=== PATIENT | male | born 1950 | race Caucasian/White ===

== ENCOUNTER 2016-10-09 06:16 | Inpatient (IN) | payer OTHER ==
--- NOTE | 2016-09-21 15:37 | GHP ---
[f rep st] HISTORY AND PHYSICAL DATE OF ADMISSION: 10/09/2016 HISTORY OF PRESENT ILLNESS: The patient is a 66-year-old male who is being referred from Dr. Scott , whom he saw earlier today, for evaluation of pancreatic cancer. The patient reports that since Rony nksgiving he has noticed a change in his bowel habits. His stools became more loose and less dark. He also noticed his urine becoming orange color. He eventually developed jaundice and underwent ERCP on 09/13/2016 in which an internal stent was placed in the common bile duct. His jaundice has since improved. CT scan around the same time frame, done at [facility], demonstrates a smal l pancreatic head mass suspicious for adenocarcinoma. Pathology was positive for adenocarcinoma. Ov er the last 6 weeks the patient has lost approximately 20 pounds, but reports that is most likely sec ondary to healthy eating and cessation of alcohol intake. Patient admits to drinking a 6-pack every night for many years. He is accompanied by his . ALLERGIES: No known drug allergies. PAST SURGICAL HISTORY: Shoulder surgery, inguinal hernia surgery. 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 He is and accompanied by his wif e today. MEDICATIONS: None. REVIEW OF SYSTEMS: He had a negative 10-point review of systems. PHYSICAL EXAM: GENERAL: The patient is a pleasant male in no apparent distress. HEAD AND NECK: Mi ld icterus, best appreciated in the sclerae. CHEST: CTA bilaterally. HEART: Regular rhythm and ra te. ABDOMEN: Very small umbilical hernia. There are no other palpable masses. ABDOMEN: Soft, non tender. EXTREMITIES: No lower extremity edema. RADIOLOGY: CT scan was reviewed. Please see HPI. PATHOLOGY: Reviewed. Please see HPI. LABORATORY: Labs from 09/17/2016 demonstrated hematocrit of 38. Elevated liver function tests inclu ding AST of 101, ALT of 241, alkaline phosphatase of 198. Elevated CA 19-9 of 376. Normal coagulati on studies. Elevated bilirubin, 3.3 total bilirubin. IMPRESSION: 66-year-old male with adenocarcinoma of the pancreas. RECOMMENDATION: Pancreaticoduodenectomy (Whipple procedure) with umbilical hernia repair was discuss ed with the patient in detail. Dr. Guardado spent greater than 30 minutes with the patient and his , going over the risks of the procedure including bowel injury requiring further surgery, infection r equiring surgery, bleeding, recurrence, the chance of recurrent pancreatic cancer in the future. The patient elects to proceed with scheduling surgery. He will be in the hospital anywhere from 5 to 15 days. /[id number]/MODL
[~2016-10-09 06:16] MED LIST: cefOXitin SODIUM 2 GM in D5W 100 ML IV ONE
[2016-10-09] MEDS ORDERED: LR 1,000 ML IV ONE (06:44)
[2016-10-09] MEDS ORDERED: LIDOCAINE 1% 5 ML SDV ID PRN (06:44)
[2016-10-09] MEDS ORDERED: LIDOCAINE 1% 5 ML SDV ONE (06:47)
[2016-10-09] MEDS ORDERED: MINERAL OIL 10 ML VIAL TP ONE (06:57)
[2016-10-09] MEDS ORDERED: METHYLENE BLUE 1% 10 MG/ML VIAL ONE (06:58)
[2016-10-09 07:12] LABS: INR 1.12 (0.83-1.16); PROTIME(PATIENT) 14.3 SEC (12.0-15.0)
[2016-10-09] MEDS ORDERED: MIDAZOLAM 2 MG/2 ML VIAL ONE (07:59)
[2016-10-09] MEDS ORDERED: fentaNYL 250 MCG/5 ML INJ ONE (08:14)
[2016-10-09] MEDS ORDERED: PROPOFOL 200 MG/20 ML VIAL ONE (08:14)
[2016-10-09] MEDS ORDERED: SKIN ADHESIVE (DERMABOND) 1 EACH TP ONE (08:20)
[2016-10-09] MEDS ORDERED: BUPIVACAINE/EPI 0.25% 30 ML SDV ONE (08:47)
[2016-10-09] MEDS ORDERED: diphenhydrAMINE 25 MG CAP PO PRN (09:28)
[2016-10-09] MEDS ORDERED: NARCOTIC DRIP BAG-TOTAL ALL TYPES EP PRN (09:28)
[2016-10-09] MEDS ORDERED: ONDANSETRON 4 MG/2 ML VIAL IVP PRN ×2 (09:28→14:34)
[2016-10-09] MEDS ORDERED: NALOXONE HCL 0.4 MG/ML INJ IVP PRN (09:28)
[2016-10-09] MEDS ORDERED: ROCURONIUM 100 MG/10 ML VIAL ONE ×2 (10:09→10:13)
[2016-10-09] MEDS ORDERED: LIDOCAINE 2% 5 ML SDV ONE (10:09)
[2016-10-09] MEDS ORDERED: ALBUMIN 5% 250 ML BOTTLE IV ONE (11:04)
[2016-10-09 13:13] LABS: % IMMATURE GRANULYOCYTES 0.3 % (0.0-1.1); ABSOLUTE IMMATURE GRANULOCYTES 0.04 10^3/uL (0.00-0.10); ADD DIFF? NO; ADD MORPH? NO; ADD SCAN? NO; ATYPICAL LYMPHOCYTE FLAG 0 (0-99); FRAGMENT RBC FLAG 0 (0-99); HEMATOCRIT 34.3 % (40.0-51.0); HEMOGLOBIN 11.6 g/dL (13.7-17.5); LEFT SHIFT FLG 20 (0-99); LIPEMIA HEMOLYSIS FLAG 90 (0-99); MEAN CELL HEMOGLOBIN 30.7 pg (27.9-34.1); MEAN CELL HEMOGLOBIN CONCENTR. 33.8 g/dL (32.4-36.7); MEAN CELL VOLUME 90.7 fL (81.5-99.8); MEAN PLATELET VOLUME 8.8 fL (8.7-11.7); PLATELET CLUMPS FLAG 0 (0-99); PLATELET COUNT 171 10^3/uL (150-400); RED BLOOD CELL COUNT 3.78 10^6/uL (4.40-6.38); RED CELL DISTRIBUTION WIDTH 14.1 % (11.5-15.2)
[2016-10-09 13:18] LABS: INR 1.45 (0.83-1.16); PROTIME(PATIENT) 17.6 SEC (12.0-15.0)
[2016-10-09] MEDS ORDERED: FUROSEMIDE 20 MG/2 ML VIAL ONE (14:10)
[2016-10-09] MEDS ORDERED: DEXAMETHASONE 4 MG/ML VIAL ONE (14:27)
[2016-10-09] MEDS ORDERED: SUGAMMADEX SODIUM 200 MG/2 ML VIAL IVP ONE (14:27)
--- NOTE | 2016-10-09 14:32 | POSTOPPROG ---
Post Op Note Date of Operation: 10/09/16 Surgeon: Dave Guardado Folding Machine Operator: 1. Alejandro Robles MD; 2. Nhi Nagel PA-C Anesthesia: GET(General Endotracheal) Procedure: pylorussparingpancreaticoduodenectomy,cholecystectomy,portal v.venorrhaphy Findings: hard tumor, dilated pancreatic duct, adherence to portal v., no distal mets Inf/Abcess present in the surg proc area at time of surgery?: No EBL: 2300cc Complications: none Drains: Adriel Larkin Specimen(s): 1. gallbladder 2. pancreatic and common bile duct margins, negative for malignancy on frozen section 3. Whipple products--pancreas, duodenum, bile duct
[2016-10-09] MEDS ORDERED: fentaNYL 100 MCG/2 ML INJ ONE (15:46)
[2016-10-10] MEDS: D5W 1/2 NS W/ 20 KCl/L 1,000 ML IV SCH ×2 (00:27→07:33)
[2016-10-10] MEDS: HYDROmorph 10MCG/ML&BUP 0.0625% in 100ML NS EP SCH ×4 (01:49→23:20)
[2016-10-10 04:29] LABS: HEMATOCRIT 34.7 % (40.0-51.0)
[2016-10-10 04:36] LABS: ANION GAP 8 mEq/L (8-16); CALCIUM 7.8 mg/dL (8.5-10.4); CARBON DIOXIDE 25 mEq/l (22-31); CHLORIDE 106 mEq/L (97-110); CREATININE 0.8 mg/dL (0.7-1.3); GLOMERULAR FILTRATION RATE > 60; GLUCOSE 278 mg/dL (70-100); POTASSIUM 5.2 mEq/L (3.5-5.2); SODIUM 139 mEq/L (134-144)
[2016-10-10] MEDS: REGARDING ANTICOAG MISC SCH (09:57)
[2016-10-10] MEDS: DC NARCS MISC SCH (09:57)
[2016-10-10] MEDS ORDERED: D50W 25 GM/50 ML SYR IVP PRN (10:46)
--- NOTE | 2016-10-10 12:20 | SOAPPROG ---
SOAP Progress Note Assessment/Plan: Assessment: Pt experiencing some pain but well controlled with PCEA demand boluses. Pt having some orthostatic hypotension when standing , resolved with walking. Plan: Continue thorasic epidural at present settings. 10/10/16 12:20 Subjective: Pt reports good pain control with demand boluses. No nausea. No LOZOYA Objective: Vital Signs Temp Pulse Resp BP Pulse Ox 36.7 C 90 16 137/81 H 95 10/10/16 07:52 10/10/16 10:00 10/10/16 10:00 10/10/16 10:00 10/10/16 10:00 Laboratory Results 10/10/16 04:10 10/10/16 04:10 10/09/16 10/10/16 10/11/16 05:59 05:59 05:59 Intake Total 8650 Output Total 6010 95 Balance 2640 -95 PT 17.6 SEC (12.0-15.0) H 10/09/16 12:45 INR 1.45 (0.83-1.16) H 10/09/16 12:45 Pt is in good spirts, alert and oriented. Epidural site clean, dressing intact. ICD10 Worksheet Patient Problems: Problems Problem Status Diagnosed Biliary obstruction due to cancer Acute bi Acute
--- NOTE | 2016-10-10 12:20 | SOAPPROG ---
SOAP Progress Note Assessment/Plan: Assessment/Plan: 66 Y M s/p pylorus sparing pancreaticoduodenectomy c cholecystectomy and portal V. venorrhaphy, POD#1. Doing well. AFVSS. BRAULIO output serosanguinous. Good UOP. Hct ok. Pain controlled c epidural. Continue betts catheter. Continue BRAULIO drains. Continue NGT until better bowel function. Ppx lovenox to start tomorrow--anesthesiology aware. Continue ICU care. 10/10/16 12:16 Subjective: No pain. Slept fine. No N/V. No flatus. Sat in chair early this am. Feels like he might have the beginning of stomach rumbling. Objective: Vital Signs Temp Pulse Resp BP Pulse Ox 36.7 C 90 16 137/81 H 95 10/10/16 07:52 10/10/16 10:00 10/10/16 10:00 10/10/16 10:00 10/10/16 10:00 Laboratory Results 10/10/16 04:10 10/10/16 04:10 10/09/16 10/10/16 10/11/16 05:59 05:59 05:59 Intake Total 8650 Output Total 6010 95 Balance 2640 -95 PT 17.6 SEC (12.0-15.0) H 10/09/16 12:45 INR 1.45 (0.83-1.16) H 10/09/16 12:45 alert, nad no jaundice mmm ng in place ctab anteriorly rrr abd soft, single bowel sound over ~minute drains serosanguinous urine clear, yellow ICD10 Worksheet Patient Problems: Problems Problem Status Diagnosed Biliary obstruction due to cancer Acute bi Acute
[2016-10-10] MEDS ORDERED: PHYTONADIONE 10 MG in NS 50 ML IV ONE (12:32)
[2016-10-10] MEDS: INSULIN REGULAR HUMAN 100 UNIT/ML SC SCH ×2 (12:54→18:25)
[2016-10-10 12:57] LABS: ALBUMIN 2.7 g/dL (3.5-5.0); BILIRUBIN,TOTAL 1.4 mg/dL (0.1-1.4); BILIRUBIN-CONJUGATED 0.8 mg/dL (0.0-0.5); BILIRUBIN-UNCONJUGATED 0.6 mg/dL (0.0-1.1); TOTAL PROTEIN 4.9 g/dL (6.3-8.2)
--- NOTE | 2016-10-10 15:25 | DX ---
Portable chest x-ray 1308 hours. History: Pancreatic cancer. Findings: Comparison to July 17, 2007 exam. There is band of subsegmental atelectasis right infrahilar region as well as at the left base. There is no consolidation, effusion, or pneumothorax. There is poor inspiration. Heart size and pulmonary v asculature are normal. Osseous structures appear to be unchanged. NG tube is present with tip in the stomach. Impression: 1. Poor inspiration with subsegmental atelectasis left base and right infrahilar region.
[2016-10-10] MEDS ORDERED: METOCLOPRAMIDE 10 MG/2 ML VIAL ONE (21:46)
[2016-10-10] MEDS: FAMOTIDINE 20 MG/NACL 50 ML IV SCH (21:49)
[2016-10-10] MEDS: METOCLOPRAMIDE 10 MG/2 ML VIAL IVP SCH (21:49)
[2016-10-11] MEDS: INSULIN REGULAR HUMAN 100 UNIT/ML SC SCH ×3 (00:33→14:13)
[2016-10-11] MEDS: METOCLOPRAMIDE 10 MG/2 ML VIAL IVP SCH ×4 (05:03→21:47)
--- NOTE | 2016-10-11 05:09 | GCON ---
[f rep st] CONSULTATION CRITICAL CARE CONSULTATION. DATE OF CONSULTATION: 10/10/2016 REASON FOR CONSULTATION: Intensive care unit evaluation and medical management following a Whipple p rocedure. HISTORY: The patient is a very pleasant 66-year-old gentleman, who presented with jaundice to his [facility]sicians in August. He was evaluated and found to have possible pancreatic cancer. Common bile du ct stenting was done. Pathology was positive for adenocarcinoma. He was thus admitted and underwent a Whipple procedure yesterday. Complete details can be found in the operative notes. He was returned to the intensive care unit post procedure, doing well. He has had no particular prob lems. He complains of some shortness of breath and expected abdominal pain, which is well controlled . PAST MEDICAL HISTORY: Unremarkable for known drug allergies. He has no significant medical problems and was on no medications at the time of admission. He is status post some orthopedic procedures in the past and a herniorrhaphy. SOCIAL HISTORY: The patient is . He drank a 6 pack of beer previously but stopped a month or so ago. Occasionally uses marijuana. Tobacco is negative. FAMILY HISTORY: Negative/noncontributory. REVIEW OF SYSTEMS: Negative except as mentioned above. There is no history of heart or lung disease , thromboembolic disease, or other significant problems. PHYSICAL EXAMINATION: GENERAL: Reveals pleasant gentleman, who is sitting up in a chair. He appears comfortable. VITAL SIGNS: Blood pressure is 130/80, heart rate 90 with sinus rhythm on the monitor. Respiratory rate is 16. On 2 L of oxygen saturations are 95.%. HEENT/NECK: Unremarkable for lymp hadenopathy or thyromegaly. There is no jugular venous distention. CHEST: Reveals decreased breath sounds and excursion secondary to his abdominal surgery. There are no rales or rhonchi. HEART: Reg ular in rate and rhythm. There are no significant murmurs, no gallops. ABDOMEN: Dressed postoperat ively and was not examined. Drains are in place on the left and right sides. EXTREMITIES: Unremark able for edema, cords, or tenderness. SCDs are in place. DATABASE: Laboratories show a white blood cell count 12,000, hematocrit of 34.7. Platelets are norm al. PT and INR on admission were normal. Sodium is 139, potassium 5.2, chloride 106, CO2 25, BUN 16 , with a creatinine of 0.8. Glucoses are in the 270 range. Bilirubin is 1.4, AST 6124 with an ALT o f 6304. Albumin is 2.7. Calcium 7.8. ASSESSMENT: 1. Status post Whipple procedure for pancreatic cancer. He is doing well postoperatively. 2. Hyperglycemia. Insulin by sliding scale will be ordered. 3. Elevated transaminases. These were mildly elevated preoperatively. These elevated values likely represent surgical perturbation. 4. DVT prophylaxis, on enoxaparin. 5. GI prophylaxis, famotidine will be added to his regimen. PLAN AND RECOMMENDATIONS: The patient will be kept in the intensive care unit. Appropriate pain con trol will be maintained. Insulin will be added for glucose coverage on a sliding scale basis. Pepci d will be started. Current medications will be continued. CBC, hematocrit, laboratory will be follo wed. Further plans and recommendations will be made based on his progress over the next 12-24 hours. /[id number]/MODL
[2016-10-11 05:19] LABS: ABSOLUTE NRBC COUNT 0.04 10^3/uL (0-0.01); ADD MORPH? NO; ADD SCAN? YES; ATYPICAL LYMPHOCYTE FLAG 0 (0-99); FRAGMENT RBC FLAG 0 (0-99); HEMATOCRIT 33.9 % (40.0-51.0); HEMOGLOBIN 11.8 g/dL (13.7-17.5); LIPEMIA HEMOLYSIS FLAG 90 (0-99); MEAN CELL HEMOGLOBIN 30.7 pg (27.9-34.1); MEAN CELL HEMOGLOBIN CONCENTR. 34.8 g/dL (32.4-36.7); MEAN CELL VOLUME 88.3 fL (81.5-99.8); MEAN PLATELET VOLUME 9.4 fL (8.7-11.7); NRBC-AUTO% 0.3 % (0.0-0.2); PLATELET CLUMPS FLAG 0 (0-99); PLATELET COUNT 180 10^3/uL (150-400); RED BLOOD CELL COUNT 3.84 10^6/uL (4.40-6.38); RED CELL DISTRIBUTION WIDTH 14.5 % (11.5-15.2)
[2016-10-11 05:22] LABS: LEFT SHIFT FLG 110 (0-99)
[2016-10-11 05:24] LABS: INR 1.73 (0.83-1.16); PROTIME(PATIENT) 20.3 SEC (12.0-15.0)
[2016-10-11 05:34] LABS: ALBUMIN 2.6 g/dL (3.5-5.0); ALKALINE PHOSPHATASE 272 IU/L (38-126); ANION GAP 6 mEq/L (8-16); BILIRUBIN,TOTAL 1.5 mg/dL (0.1-1.4); BILIRUBIN-CONJUGATED 0.6 mg/dL (0.0-0.5); BILIRUBIN-UNCONJUGATED 0.9 mg/dL (0.0-1.1); CALCIUM 8.3 mg/dL (8.5-10.4); CARBON DIOXIDE 26 mEq/l (22-31); CHLORIDE 107 mEq/L (97-110); CREATININE 1.1 mg/dL (0.7-1.3); GLOMERULAR FILTRATION RATE > 60; GLUCOSE 216 mg/dL (70-100); POTASSIUM 5.3 mEq/L (3.5-5.2); SODIUM 139 mEq/L (134-144); TOTAL PROTEIN 4.7 g/dL (6.3-8.2)
[2016-10-11 05:48] LABS: ADD DIFF? YES; SCAN POSITIVE
[2016-10-11 05:52] LABS: TOXIC VACUOLIZATION PRESENT
[2016-10-11 05:56] LABS: PLATELET ESTIMATE ADEQUATE (ADEQ)
[2016-10-11 06:11] LABS: ASPARTATE AMINOTRANSFERASE 3244 IU/L (17-59)
[2016-10-11 06:18] LABS: ALANINE AMINOTRANSFERASE 5706 IU/L (21-72)
[2016-10-11] MEDS: HYDROmorph 10MCG/ML&BUP 0.0625% in 100ML NS EP SCH ×3 (06:37→19:41)
[2016-10-11] MEDS: FAMOTIDINE 20 MG/NACL 50 ML IV SCH (08:16)
[2016-10-11] MEDS: REGARDING ANTICOAG MISC SCH (08:16)
[2016-10-11] MEDS: DC NARCS MISC SCH (08:16)
[2016-10-11] MEDS: ENOXAPARIN 40 MG/0.4 ML SYR SC SCH (10:05)
[2016-10-11] MEDS ORDERED: NS 500 ML IV ONE ×2 (10:34→16:00)
[2016-10-11] MEDS ORDERED: D10W 1,000 ML IV PRN (12:41)
--- NOTE | 2016-10-11 12:52 | SOAPPROG ---
SOAP Progress Note Assessment/Plan: Assessment: 66yo male s/p whipple for pancreatic cancer POD 2. Pain spiked last night -- epidural became unhooked for 2-3 hours, improving now. Reportedly "Frumpy" earlier today but now in pleasant mood, likely was related to pain control which has improved. PE NG tube in place, awake, alert in chair Abdomen transverse incision bandage dry, B/L BRAULIO drains in place with bilious drainage, soft abdomen to palpation LE no lower ext edema Labs reviewed. Plan: TPN encouraged deep breathing exercises await bowel function which could take many days 10/11/16 12:48 Objective: Vital Signs Temp Pulse Resp BP Pulse Ox 36.8 C 112 H 19 116/72 96 10/11/16 11:27 10/11/16 12:00 10/11/16 12:00 10/11/16 12:00 10/11/16 12:00 Laboratory Results 10/11/16 04:45 10/11/16 04:45 10/10/16 10/11/16 10/12/16 05:59 05:59 05:59 Intake Total 8650 1952 Output Total 6010 1710 Balance 2640 242 PT 20.3 SEC (12.0-15.0) H 10/11/16 04:45 INR 1.73 (0.83-1.16) H 10/11/16 04:45 ICD10 Worksheet Patient Problems: Problems Problem Status Diagnosed Biliary obstruction due to cancer Acute bi Acute
--- NOTE | 2016-10-11 13:58 | PDINTPN ---
Computer Systems Design Analyst Progress Note Assessment/Plan: Assessment: Pancreatic cancer, status post Whipple Hyperglycemia: Insulin started yesterday, glucose is still high By basilar atelectasis, secondary to 1., as expected Decreased urine output: Probably related to volume Nutrition: To start TPN. PICC line to be placed. DVT prophylaxis: On enoxaparin GI prophylaxis: On famotidine Plan: continue care in the intensive care unit. Increased IV fluids, with fluid bolus this morning. Continue pain management. Discuss TRAINING INSTRUCTOR with anesthesia. For PICC line, TPN. Continue insulin, may need to increase or add to TPN. All the above was discussed with the patient's , nursing, and the ICU multi disciplinary team. Subjective: Doing okay. Slept poorly last night. Some increase in pain today. Objective: Vital Signs Temp Pulse Resp BP Pulse Ox 36.8 C 112 H 19 116/72 96 10/11/16 11:27 10/11/16 12:00 10/11/16 12:00 10/11/16 12:00 10/11/16 12:00 Laboratory Results 10/11/16 04:45 10/11/16 04:45 10/10/16 10/11/16 10/12/16 05:59 05:59 05:59 Intake Total 8650 1952 Output Total 6010 1710 Balance 2640 242 PT 20.3 SEC (12.0-15.0) H 10/11/16 04:45 INR 1.73 (0.83-1.16) H 10/11/16 04:45 Laboratory Tests 10/11/16 04:45 PT 20.3 H INR 1.73 H Calcium 8.3 L Total Bilirubin 1.5 H AST 3244 H ALT 5706 H Albumin 2.6 L Physical Exam - Physical Exam General Appearance: alert, no apparent distress, other ( Up in chair) EENT: other ( nasal cannula 2 L) Neck: normal inspection Respiratory: lungs clear ( anteriorly), decreased breath sounds ( at bases) Cardiac/Chest: tachycardia ( sinus on monitor) Abdomen: No normal bowel sounds ( quiet), No non-tender (ve changes) Male Genitalia: other (ine output this morning) Skin: normal color, warm/dry Extremities: No pedal edema Neuro/Psych: no motor/sensory deficits, No cognition abnormalities ICD10 Worksheet Patient Problems: Problems Problem Status Diagnosed Biliary obstruction due to cancer Acute bi Acute
[2016-10-11] MEDS ORDERED: HYDROmorphONE/DILAUDID 1 MG/ML SYR ONE (14:05)
[2016-10-11] MEDS: HYDROmorphONE/DILAUDID 1 MG/ML SYR IVP PRN ×2 (14:14→20:32)
[2016-10-11 14:19] LABS: MAGNESIUM 1.9 mg/dL (1.6-2.3)
--- NOTE | 2016-10-11 16:03 | IR ---
Imaging-Guided Peripherally Inserted Central Catheter History: Malnutrition.. Prophylactic Antibiotic: Cefazolin was not ordered and administered for antimicrobial prophylaxis be cause it was not medically necessary for this procedure. VTE Prophylaxis: There is not an order for VTE prophylaxis to be given within 24 hours after procedu re end time because it was not medically necessary for this procedure. Crosscutting Measure: Patient's current list of medications including all known prescriptions, over- the-counters, herbals, and vitamin/mineral/dietary supplements are reviewed. Medications' name, dosa ge, frequency, and route of administration are confirmed. Technique: Following informed consent, the right arm was prepped and draped in sterile fashion. 1% Xy locaine was used for local anesthetic. All elements of maximal sterile barrier technique including cap, mask, sterile gown, sterile gloves, large sterile sheet, hand hygiene, and 2% chlorhexidine for cutaneous antisepsis, followed. Ultrasound evaluation of potential access site was performed. After successfully identifying a patent vessel, ultrasound guidance was used to puncture the vein. A permanent recording was created for the patient's record. Ultrasound transducer was placed in sterile sleeve and used for real-time imaging guidance over steri le gel to enter the basilic vein. 0.018 measuring wire was passed centrally under fluoroscopic contro l. A skin josephine with scalpel blade was followed by removing the access needle. A 5 Sammarinese peel-away sh eath was followed by a 5 Sammarinese double-lumen central catheter, trimmed to 40 cm length. The tip of t he catheter was positioned centrally and the guidewire removed. A single fluoroscopic spot image was obtained in inspiration. The hub of the catheter was fixed to the skin using a sterile StatLock adhes diamond device, and a sterile dressing was applied. The catheter was irrigated. Findings: The tip of the central catheter terminates at the junction of the superior vena cava and th e right atrium. Fluoroscopy: 0.6 minutes, 2 images Impression: 5 Sammarinese double lumen peripherally inserted central catheter is ready to use.
--- NOTE | 2016-10-11 17:06 | SOAPPROG ---
SOAP Progress Note Assessment/Plan: Assessment: Pt experiencing some pain but well controlled with PCEA demand boluses. Pt having some orthostatic hypotension when standing , resolved with walking. Plan: Continue thorasic epidural at present settings. 10/10/16 12:20 10/11/16 17:02 Pt with increased pain last pm and this am after catheter disconnect. Infusion increased to 9 ml/hr, and dilaudid 0.2 mg iv q 30 min ordered prn. Pt received one dose of dilaudid and is now with good pain control. Will continue with present epidural settings. Subjective: Pt with increaed pain last pm and this am after catheter disconnect. Pt currently reports good pain control. Objective: Vital Signs Temp Pulse Resp BP Pulse Ox 36.8 C 97 16 134/68 H 94 10/11/16 11:27 10/11/16 15:31 10/11/16 14:00 10/11/16 14:00 10/11/16 14:00 Laboratory Results 10/11/16 04:45 10/11/16 04:45 10/10/16 10/11/16 10/12/16 05:59 05:59 05:59 Intake Total 8650 1952 Output Total 6010 1710 205 Balance 2640 242 -205 PT 20.3 SEC (12.0-15.0) H 10/11/16 04:45 INR 1.73 (0.83-1.16) H 10/11/16 04:45 Pt oriented, and in good spirits. Epidural site clean and dressing intact. ICD10 Worksheet Patient Problems: Problems Problem Status Diagnosed Biliary obstruction due to cancer Acute bi Acute
[2016-10-11] MEDS: INSULIN REGULAR, HUMAN 100 UNIT/1 ML VIAL HIGH SC SCH (19:02)
[2016-10-11] MEDS: TPN W/ FAMOTIDINE 1 EA BAG IV SCH (21:47)
[2016-10-12] MEDS: INSULIN REGULAR, HUMAN 100 UNIT/1 ML VIAL HIGH SC SCH ×6 (01:10→21:59)
[2016-10-12] MEDS: HYDROmorphONE/DILAUDID 1 MG/ML SYR IVP PRN (01:11)
[2016-10-12] MEDS: HYDROmorph 10MCG/ML&BUP 0.0625% in 100ML NS EP SCH (03:45)
[2016-10-12] MEDS: METOCLOPRAMIDE 10 MG/2 ML VIAL IVP SCH ×4 (05:17→21:50)
[2016-10-12 05:54] LABS: ABSOLUTE NRBC COUNT 0.14 10^3/uL (0-0.01); ADD MORPH? YES; ADD SCAN? YES; ATYPICAL LYMPHOCYTE FLAG 0 (0-99); FRAGMENT RBC FLAG 0 (0-99); HEMATOCRIT 31.7 % (40.0-51.0); HEMOGLOBIN 10.7 g/dL (13.7-17.5); LIPEMIA HEMOLYSIS FLAG 90 (0-99); MEAN CELL HEMOGLOBIN 30.7 pg (27.9-34.1); MEAN CELL HEMOGLOBIN CONCENTR. 33.8 g/dL (32.4-36.7); MEAN CELL VOLUME 90.8 fL (81.5-99.8); MEAN PLATELET VOLUME 9.2 fL (8.7-11.7); PLATELET CLUMPS FLAG 0 (0-99); PLATELET COUNT 141 10^3/uL (150-400); RED BLOOD CELL COUNT 3.49 10^6/uL (4.40-6.38); RED CELL DISTRIBUTION WIDTH 14.6 % (11.5-15.2)
[2016-10-12 06:05] LABS: APTT 28.5 SEC (23.0-38.0); INR 1.53 (0.83-1.16); PROTIME(PATIENT) 18.4 SEC (12.0-15.0)
[2016-10-12 06:09] LABS: LEFT SHIFT FLG 260 (0-99); NRBC-AUTO% 2.1 % (0.0-0.2)
[2016-10-12 06:13] LABS: ALBUMIN 1.9 g/dL (3.5-5.0); ALKALINE PHOSPHATASE 208 IU/L (38-126); ANION GAP 4 mEq/L (8-16); BILIRUBIN-CONJUGATED 0.4 mg/dL (0.0-0.5); BILIRUBIN-UNCONJUGATED 0.6 mg/dL (0.0-1.1); CARBON DIOXIDE 28 mEq/l (22-31); CHLORIDE 113 mEq/L (97-110); CREATININE 0.9 mg/dL (0.7-1.3); GLOMERULAR FILTRATION RATE > 60; GLUCOSE 198 mg/dL (70-100); MAGNESIUM 2.3 mg/dL (1.6-2.3); POTASSIUM 4.6 mEq/L (3.5-5.2); SODIUM 145 mEq/L (134-144)
[2016-10-12 06:43] LABS: ALANINE AMINOTRANSFERASE 3392 IU/L (21-72); ASPARTATE AMINOTRANSFERASE 1231 IU/L (17-59)
[2016-10-12 07:09] LABS: ADD DIFF? YES
[2016-10-12 07:10] LABS: PLATELET ESTIMATE ADEQUATE (ADEQ); SCAN POSITIVE
[2016-10-12 07:23] LABS: POLYCHROMASIA 1+
[2016-10-12] MEDS ORDERED: K PHOS 10 MMOL in D5W 250 ML IV ONE (08:30)
[2016-10-12] MEDS: DC NARCS MISC SCH (08:32)
[2016-10-12] MEDS: REGARDING ANTICOAG MISC SCH (08:32)
[2016-10-12] MEDS: ENOXAPARIN 40 MG/0.4 ML SYR SC SCH ×3 (08:53→10:42)
--- NOTE | 2016-10-12 09:55 | POSTANESTH ---
Post Anesthetic Evaluation Cardiovascular Status: Normal, Stable Respiratory Status: Normal, Stable Level of Consciousness/Mental Status: Can Participate in Eval, Alert and Oriented Pain Control: Adequate, Prn Tx Ordered Nausea/Vomiting Control: Adequate, Prn Tx Ordered Complications Possibly Related to Anesthesia: None Noted Notes: Pt seen for epidural f/u. Back site is c/d/i, no erythema/edema/exudate. Pt reports pain is 3/10 at rest with spikes to 6-7/10 with activity, coughing, etc. Patient's stated goal is <6/10. Physical exam shows a narrow band at approximately T-9, covers the incision. He has no demand boluses over the last 8 hours, states he was afraid to push the button because it might beep and the battery . Provided reassurance and education, encouraged to use the PCEA demand feature prior to activity and as needed. Recommend to increase the bupi from 0.0625% to 0.1%. Please hold Lovenox for 12 hours prior to planned epidural discharge. Ambulate with assistance as able. Thank you for this interesting consult please don't hesitate to call with questions or concerns.
[2016-10-12] MEDS: HYDROmorph 10MCG/ML&BUP 0.1% in 100ML NS EP SCH ×2 (11:41→18:24)
--- NOTE | 2016-10-12 17:19 | PDINTPN ---
Demonstrator Knitting Progress Note Assessment/Plan: Assessment: Pancreatic cancer, status post Whipple Hyperglycemia: On insulin by sliding scale and in TPN By basilar atelectasis, secondary to #1, as expected Decreased urine output: Probably related to volume, somewhat better Nutrition: On TPN. DVT prophylaxis: On enoxaparin GI prophylaxis: On famotidine Anemia: Hematocrit 31, stable. Without evidence of ongoing bleeding. Follow. Plan: Continue care in the intensive care unit. Can change to a step-down unit status, continue IV fluids. Continue pain management, TPN. Continue insulin, increase coverage to Q 4 hours, add more insulin to TPN. All the above was discussed with the patient's , nursing, pharmacy, and the ICU multi disciplinary team. Subjective: Doing well. Had a better night last night. Pain under acceptable control. Objective: Vital Signs Temp Pulse Resp BP Pulse Ox 36.9 C 94 17 134/58 H 95 10/11/16 20:00 10/12/16 16:02 10/12/16 16:02 10/12/16 16:02 10/12/16 16:02 Laboratory Results 10/12/16 05:40 10/12/16 05:40 10/11/16 10/12/16 10/13/16 05:59 05:59 05:59 Intake Total 1952 3976 Output Total 1710 1865 970 Balance 242 2111 -970 PT 18.4 SEC (12.0-15.0) H 10/12/16 05:40 INR 1.53 (0.83-1.16) H 10/12/16 05:40 Physical Exam - Physical Exam General Appearance: alert, no apparent distress EENT: PERRL/EOMI, other (Nasal cannula at 2 L) Neck: normal inspection Respiratory: lungs clear (Anteriorly), decreased breath sounds (At bases), rales (Few rales at base), No rhonchi Cardiac/Chest: regular rate, rhythm Abdomen: No normal bowel sounds (Quiet, maybe an occasional few bowel sounds), No non-tender, No soft Male Genitalia: other Skin: normal color, warm/dry Extremities: No pedal edema (Trace) Neuro/Psych: no motor/sensory deficits, No cognition abnormalities ICD10 Worksheet Patient Problems: Problems Problem Status Diagnosed Biliary obstruction due to cancer Acute bi Acute
[2016-10-12] MEDS: NS 1,000 ML IV SCH (17:31)
[2016-10-12] MEDS: TPN W/ FAMOTIDINE 1 EA BAG IV SCH (21:47)
[2016-10-13] MEDS: HYDROmorph 10MCG/ML&BUP 0.1% in 100ML NS EP SCH ×3 (01:45→16:15)
[2016-10-13] MEDS: INSULIN REGULAR, HUMAN 100 UNIT/1 ML VIAL HIGH SC SCH ×6 (02:10→22:00)
[2016-10-13 04:52] LABS: ABSOLUTE NRBC COUNT 0.14 10^3/uL (0-0.01); ADD MORPH? YES; ADD SCAN? YES; ATYPICAL LYMPHOCYTE FLAG 0 (0-99); FRAGMENT RBC FLAG 0 (0-99); HEMATOCRIT 31.2 % (40.0-51.0); HEMOGLOBIN 10.5 g/dL (13.7-17.5); LIPEMIA HEMOLYSIS FLAG 80 (0-99); MEAN CELL HEMOGLOBIN 31.1 pg (27.9-34.1); MEAN CELL HEMOGLOBIN CONCENTR. 33.7 g/dL (32.4-36.7); MEAN CELL VOLUME 92.3 fL (81.5-99.8); MEAN PLATELET VOLUME 9.4 fL (8.7-11.7); PLATELET CLUMPS FLAG 0 (0-99); PLATELET COUNT 117 10^3/uL (150-400); RED BLOOD CELL COUNT 3.38 10^6/uL (4.40-6.38); RED CELL DISTRIBUTION WIDTH 14.8 % (11.5-15.2)
[2016-10-13 04:57] LABS: INR 1.39 (0.83-1.16)
[2016-10-13 04:58] LABS: APTT 26.3 SEC (23.0-38.0)
[2016-10-13 05:01] LABS: LEFT SHIFT FLG 130 (0-99)
[2016-10-13 05:06] LABS: ALBUMIN 1.8 g/dL (3.5-5.0); ALKALINE PHOSPHATASE 164 IU/L (38-126); ANION GAP 2 mEq/L (8-16); ASPARTATE AMINOTRANSFERASE 632 IU/L (17-59); BILIRUBIN,TOTAL 0.9 mg/dL (0.1-1.4); CALCIUM 7.9 mg/dL (8.5-10.4); CARBON DIOXIDE 29 mEq/l (22-31); CHLORIDE 114 mEq/L (97-110); CREATININE 0.9 mg/dL (0.7-1.3); GLOMERULAR FILTRATION RATE > 60; GLUCOSE 246 mg/dL (70-100); MAGNESIUM 2.2 mg/dL (1.6-2.3); POTASSIUM 4.7 mEq/L (3.5-5.2); SODIUM 145 mEq/L (134-144); TOTAL PROTEIN 3.7 g/dL (6.3-8.2)
[2016-10-13 05:22] LABS: ADD DIFF? YES; SCAN POSITIVE
[2016-10-13 05:27] LABS: MACROCYTES 1+; PLATELET ESTIMATE DECREASED (ADEQ); POLYCHROMASIA 1+
[2016-10-13 05:28] LABS: ALANINE AMINOTRANSFERASE 2195 IU/L (21-72)
[2016-10-13] MEDS: METOCLOPRAMIDE 10 MG/2 ML VIAL IVP SCH ×4 (05:41→22:27)
--- NOTE | 2016-10-13 09:25 | SOAPPROG ---
SOAP Progress Note Assessment/Plan: Assessment:Cath day 4 - good pain control, catheter site intact without induration or edema Plan:continue current infusion regimen 10/13/16 09:23 10/13/16 09:25 Subjective: good pain control Objective: Vital Signs Temp Pulse Resp BP Pulse Ox 36.7 C 102 H 15 96/52 L 92 10/13/16 08:00 10/13/16 08:00 10/13/16 08:00 10/13/16 08:00 10/13/16 08:00 Laboratory Results 10/13/16 04:40 10/13/16 04:40 10/12/16 10/13/16 10/14/16 05:59 05:59 05:59 Intake Total 3976 2591 Output Total 1865 2440 Balance 2111 151 PT 17.0 SEC (12.0-15.0) H 10/13/16 04:40 INR 1.39 (0.83-1.16) H 10/13/16 04:40 - Time Spent With Patient Time Spent With Patient: 10 minutes - Pending Discharge Pending Discharge Within 24 Hours: No Pending Discharge Within 48 Hours: No ICD10 Worksheet Patient Problems: Problems Problem Status Diagnosed Biliary obstruction due to cancer Acute bi Acute
[2016-10-13] MEDS: DC NARCS MISC SCH (09:43)
[2016-10-13] MEDS: REGARDING ANTICOAG MISC SCH (09:43)
[2016-10-13] MEDS: ENOXAPARIN 40 MG/0.4 ML SYR SC SCH (09:43)
--- NOTE | 2016-10-13 11:21 | SOAPPROG ---
SOAP Progress Note Assessment/Plan: Assessment: s/p pylorussparingpancreaticoduodenectomy,cholecystectomy,portal v.venorrhaphy. EBL about 2 L at surgery Neuro - Pain controlled, Continue epidural Resp - IS Cards - monitor for instability GI - No return of bowel function yet. R BRAULIO drain with slight foul odor. Will monitor. VSS stable and labs as expected so will not scan at this time - Continue Zambrano - monitor Is and Os FEN - TPN Proph - holding for now Dispo - continue ICU S: Pain controlled/ No flatus O: Incision cdi R BRAULIO with old sang. L BRAULIO serosang BS hypoactive Soft Sitting up in chair CTAB decreased at bases Regular rate Plan: 10/13/16 11:19 10/13/16 11:21 Objective: Vital Signs Temp Pulse Resp BP Pulse Ox 36.7 C 102 H 15 96/52 L 92 10/13/16 08:00 10/13/16 08:00 10/13/16 08:00 10/13/16 08:00 10/13/16 08:00 Laboratory Results 10/13/16 04:40 10/13/16 04:40 10/12/16 10/13/16 10/14/16 05:59 05:59 05:59 Intake Total 3976 2591 Output Total 1865 2440 70 Balance 2111 151 -70 PT 17.0 SEC (12.0-15.0) H 10/13/16 04:40 INR 1.39 (0.83-1.16) H 10/13/16 04:40 ICD10 Worksheet Patient Problems: Problems Problem Status Diagnosed Biliary obstruction due to cancer Acute bi Acute
[2016-10-13] MEDS: NS 1,000 ML IV SCH (12:19)
--- NOTE | 2016-10-13 16:06 | PDINTPN ---
Lingo Cleaner Progress Note Assessment/Plan: Assessment: Pancreatic cancer, status post Whipple. Stable, doing acceptably. Drainage from Adriel-Larkin drain concerning for possible early infection. Surgery aware and following. Not on antibiotics at this time, afebrile. No leukocytosis Hyperglycemia: On insulin by sliding scale and in TPN By basilar atelectasis, secondary to #1, as expected Decreased urine output: Probably related to volume, improved Nutrition: On TPN. DVT prophylaxis: On enoxaparin GI prophylaxis: On famotidine Anemia: Hematocrit 31, stable. Without evidence of ongoing bleeding. Follow. Plan: Continue care in the intensive care unit as step-down status, continue IV fluids. Continue pain management, TPN. Continue insulin. Surgery will continue to follow regarding drainage/purulence. All the above was discussed with the patient's , nursing, pharmacy, and the ICU multi disciplinary team. Subjective: Doing okay. Feels better overall than yesterday. Up walking in the halls with nursing and physical therapy for brief periods. Denies significant pain or shortness of breath. Objective: Vital Signs Temp Pulse Resp BP Pulse Ox 36.5 C 93 16 104/57 L 94 10/13/16 12:00 10/13/16 12:00 10/13/16 12:00 10/13/16 12:00 10/13/16 12:00 Laboratory Results 10/13/16 04:40 10/13/16 04:40 10/12/16 10/13/16 10/14/16 05:59 05:59 05:59 Intake Total 3976 2591 Output Total 1865 2440 230 Balance 2111 151 -230 PT 17.0 SEC (12.0-15.0) H 10/13/16 04:40 INR 1.39 (0.83-1.16) H 10/13/16 04:40 Laboratory Tests 10/13/16 04:40 PT 17.0 H INR 1.39 H APTT 26.3 Calcium 7.9 L Phosphorus 2.2 L D Magnesium 2.2 AST 632 H ALT 2195 H Albumin 1.8 L Physical Exam - Physical Exam General Appearance: alert, no apparent distress EENT: other (Nasal cannula at 3 L) Neck: normal inspection Respiratory: lungs clear (Anteriorly), decreased breath sounds (And excursions.) , rales (Few at bases), No rhonchi Cardiac/Chest: regular rate, rhythm (To tachycardic at times) Abdomen: distended, other (Adriel Larkin drains in place bilaterally. 1 with a foul odor by report. Per surgery.), No normal bowel sounds (Few occasionally?) , No non-tender, No soft Male Genitalia: other (Zambrano catheter in place, good urine output) Skin: warm/dry, pallor Lymphatic: no adenopathy Extremities: pedal edema Neuro/Psych: no motor/sensory deficits, No cognition abnormalities ICD10 Worksheet Patient Problems: Problems Problem Status Diagnosed Biliary obstruction due to cancer Acute bi Acute
[2016-10-13] MEDS: TPN W/ FAMOTIDINE 1 EA BAG IV SCH (22:05)
[2016-10-14] MEDS: INSULIN REGULAR, HUMAN 100 UNIT/1 ML VIAL HIGH SC SCH ×6 (02:47→21:16)
[2016-10-14] MEDS: HYDROmorph 10MCG/ML&BUP 0.1% in 100ML NS EP SCH ×2 (02:50→15:08)
[2016-10-14] MEDS: METOCLOPRAMIDE 10 MG/2 ML VIAL IVP SCH ×4 (04:45→21:19)
[2016-10-14 05:35] LABS: ABSOLUTE NRBC COUNT 0.12 10^3/uL (0-0.01); ADD DIFF? YES; ADD MORPH? YES; ATYPICAL LYMPHOCYTE FLAG 20 (0-99); FRAGMENT RBC FLAG 0 (0-99); HEMATOCRIT 32.6 % (40.0-51.0); HEMOGLOBIN 10.9 g/dL (13.7-17.5); LIPEMIA HEMOLYSIS FLAG 80 (0-99); MEAN CELL HEMOGLOBIN 30.8 pg (27.9-34.1); MEAN CELL HEMOGLOBIN CONCENTR. 33.4 g/dL (32.4-36.7); MEAN CELL VOLUME 92.1 fL (81.5-99.8); MEAN PLATELET VOLUME 9.4 fL (8.7-11.7); PLATELET CLUMPS FLAG 0 (0-99); PLATELET COUNT 117 10^3/uL (150-400); RED BLOOD CELL COUNT 3.54 10^6/uL (4.40-6.38)
[2016-10-14 05:38] LABS: ADD SCAN? NO; LEFT SHIFT FLG 180 (0-99); NRBC-AUTO% 1.5 % (0.0-0.2)
[2016-10-14 05:50] LABS: INR 1.35 (0.83-1.16); PROTIME(PATIENT) 16.7 SEC (12.0-15.0)
[2016-10-14 06:02] LABS: ALBUMIN 1.6 g/dL (3.5-5.0); ALKALINE PHOSPHATASE 163 IU/L (38-126); ANION GAP 7 mEq/L (8-16); ASPARTATE AMINOTRANSFERASE 475 IU/L (17-59); BILIRUBIN,TOTAL 1.4 mg/dL (0.1-1.4); CALCIUM 7.5 mg/dL (8.5-10.4); CARBON DIOXIDE 27 mEq/l (22-31); CHLORIDE 115 mEq/L (97-110); CREATININE 0.8 mg/dL (0.7-1.3); GLOMERULAR FILTRATION RATE > 60; GLUCOSE 188 mg/dL (70-100); MAGNESIUM 2.1 mg/dL (1.6-2.3); POTASSIUM 3.9 mEq/L (3.5-5.2); SODIUM 149 mEq/L (134-144); TOTAL PROTEIN 3.6 g/dL (6.3-8.2)
[2016-10-14 06:35] LABS: ALANINE AMINOTRANSFERASE 1536 IU/L (21-72)
[2016-10-14 06:51] LABS: PLATELET ESTIMATE ADEQUATE (ADEQ)
[2016-10-14 06:52] LABS: POLYCHROMASIA 2+
[2016-10-14 07:07] LABS: TOXIC VACUOLIZATION PRESENT
[2016-10-14] MEDS: DC NARCS MISC SCH (09:15)
[2016-10-14] MEDS: REGARDING ANTICOAG MISC SCH (09:16)
--- NOTE | 2016-10-14 09:44 | SOAPPROG ---
SOAP Progress Note Assessment/Plan: Assessment: s/p pylorus sparing pancreaticoduodenectomy,cholecystectomy,portal v.venorrhaphy. EBL about 2 L at surgery Neuro - Pain controlled, Continue epidural Resp - IS Cards - monitor for instability GI some flatus. NG out tomorrow? Continue BRAULIO drains. High BRAULIO output on left. VSS stable and labs as expected so will not scan at this time - Continue Zambrano - monitor Is and Os FEN - TPN Proph - holding for now Dispo - continue ICU S: Pain controlled, flatus. NG tube irritating O: Incision cdi R BRAULIO with old sang. L BRAULIO dark old sang. High volume on left. BS hypoactive Soft Sitting up in chair CTAB decreased at bases Regular rate Plan: 10/13/16 11:19 10/13/16 11:21 10/14/16 09:43 Objective: Vital Signs Temp Pulse Resp BP Pulse Ox 36.7 C 92 20 125/73 H 93 10/14/16 08:06 10/14/16 08:06 10/14/16 08:06 10/14/16 08:06 10/14/16 08:06 Laboratory Results 10/14/16 05:25 10/14/16 05:25 10/13/16 10/14/16 10/15/16 05:59 05:59 05:59 Intake Total 2591 3006 Output Total 2440 2755 Balance 151 251 PT 16.7 SEC (12.0-15.0) H 10/14/16 05:25 INR 1.35 (0.83-1.16) H 10/14/16 05:25 ICD10 Worksheet Patient Problems: Problems Problem Status Diagnosed Biliary obstruction due to cancer Acute bi Acute
[2016-10-14] MEDS: ENOXAPARIN 40 MG/0.4 ML SYR SC SCH (10:36)
--- NOTE | 2016-10-14 17:21 | PDINTPN ---
Apparatus Cleaner Progress Note Assessment/Plan: Assessment: Pancreatic cancer, status post Whipple. Stable, doing acceptably. Drainage from Adriel-Larkin drain concerning for possible infection. Surgery aware and following. Not on antibiotics at this time, afebrile. No leukocytosis Hyperglycemia: On insulin by sliding scale and in TPN By basilar atelectasis, secondary to #1, as expected Decreased urine output: Probably related to volume, improved Nutrition: On TPN. DVT prophylaxis: On enoxaparin GI prophylaxis: On famotidine Anemia: Hematocrit 32.6, stable. Without evidence of ongoing bleeding. Follow. Plan: Continue care in the intensive care unit as step-down status, continue IV fluids. Continue pain management, TPN. Continue insulin. Increase mobilization as tolerated. Surgery will continue to follow regarding drainage/ purulence. All the above was discussed with the patient's , nursing, pharmacy, and the ICU multi disciplinary team. Subjective: Doing okay, feels somewhat better than yesterday. Denies significant abdominal pain. 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 Ambulates with assistance using a walker. Objective: Vital Signs Temp Pulse Resp BP Pulse Ox 36.7 C 93 16 115/57 L 97 10/14/16 08:06 10/14/16 16:00 10/14/16 16:00 10/14/16 16:00 10/14/16 16:00 Laboratory Results 10/14/16 05:25 10/14/16 05:25 10/13/16 10/14/16 10/15/16 05:59 05:59 05:59 Intake Total 2591 3006 Output Total 2440 2755 Balance 151 251 PT 16.7 SEC (12.0-15.0) H 10/14/16 05:25 INR 1.35 (0.83-1.16) H 10/14/16 05:25 Physical Exam - Physical Exam General Appearance: alert, no apparent distress EENT: other (Nasal cannula 3 L, NG present, to drainage) Neck: normal inspection Respiratory: decreased breath sounds (Bilaterally at the base. Lungs clear.), No rhonchi, No wheezing Cardiac/Chest: regular rate, rhythm (Distant heart tones) Abdomen: non-tender (Little tenderness), distended, other (Drains in place, with possible evidence of infection.), No normal bowel sounds (Bowel sounds now present, somewhat hypoactive. Passing gas.), No soft Male Genitalia: other (Zambrano catheter in place, good urine output) Skin: normal color, warm/dry Extremities: pedal edema Neuro/Psych: no motor/sensory deficits, No cognition abnormalities ICD10 Worksheet Patient Problems: Problems Problem Status Diagnosed Biliary obstruction due to cancer Acute bi Acute
[2016-10-14] MEDS: NS 1,000 ML IV SCH (19:13)
[2016-10-14] MEDS: TPN W/ FAMOTIDINE 1 EA BAG IV SCH (21:07)
[2016-10-15] MEDS: INSULIN REGULAR, HUMAN 100 UNIT/1 ML VIAL HIGH SC SCH ×6 (01:46→22:12)
[2016-10-15] MEDS: METOCLOPRAMIDE 10 MG/2 ML VIAL IVP SCH ×4 (04:06→22:12)
[2016-10-15] MEDS: HYDROmorph 10MCG/ML&BUP 0.1% in 100ML NS EP SCH (04:06)
[2016-10-15 05:03] LABS: ABSOLUTE NRBC COUNT 0.09 10^3/uL (0-0.01); ADD DIFF? YES; ADD MORPH? NO; ATYPICAL LYMPHOCYTE FLAG 80 (0-99); FRAGMENT RBC FLAG 0 (0-99); HEMATOCRIT 31.5 % (40.0-51.0); HEMOGLOBIN 10.5 g/dL (13.7-17.5); LIPEMIA HEMOLYSIS FLAG 80 (0-99); MEAN CELL HEMOGLOBIN 30.7 pg (27.9-34.1); MEAN CELL HEMOGLOBIN CONCENTR. 33.3 g/dL (32.4-36.7); MEAN CELL VOLUME 92.1 fL (81.5-99.8); NRBC-AUTO% 0.9 % (0.0-0.2); PLATELET CLUMPS FLAG 10 (0-99); PLATELET COUNT 116 10^3/uL (150-400); RED BLOOD CELL COUNT 3.42 10^6/uL (4.40-6.38); RED CELL DISTRIBUTION WIDTH 15.1 % (11.5-15.2)
[2016-10-15 05:11] LABS: ADD SCAN? NO; LEFT SHIFT FLG 170 (0-99)
[2016-10-15 05:14] LABS: INR 1.41 (0.83-1.16); PROTIME(PATIENT) 17.2 SEC (12.0-15.0)
[2016-10-15 05:18] LABS: ALANINE AMINOTRANSFERASE 928 IU/L (21-72); ALBUMIN 1.6 g/dL (3.5-5.0); ALKALINE PHOSPHATASE 153 IU/L (38-126); ANION GAP 4 mEq/L (8-16); ASPARTATE AMINOTRANSFERASE 235 IU/L (17-59); BILIRUBIN,TOTAL 2.4 mg/dL (0.1-1.4); CALCIUM 7.2 mg/dL (8.5-10.4); CARBON DIOXIDE 29 mEq/l (22-31); CHLORIDE 117 mEq/L (97-110); CREATININE 0.8 mg/dL (0.7-1.3); GLOMERULAR FILTRATION RATE > 60; GLUCOSE 156 mg/dL (70-100); POTASSIUM 3.7 mEq/L (3.5-5.2); SODIUM 150 mEq/L (134-144); TOTAL PROTEIN 3.6 g/dL (6.3-8.2); TRIGLYCERIDE 89 mg/dL (40-150)
[2016-10-15 05:29] LABS: BILIRUBIN-CONJUGATED 1.7 mg/dL (0.0-0.5); BILIRUBIN-UNCONJUGATED 0.7 mg/dL (0.0-1.1)
[2016-10-15 05:50] LABS: PLATELET ESTIMATE DECREASED (ADEQ)
[2016-10-15 05:56] LABS: POLYCHROMASIA 3+
[2016-10-15] MEDS: DC NARCS MISC SCH (09:31)
[2016-10-15] MEDS: ENOXAPARIN 40 MG/0.4 ML SYR SC SCH (09:31)
[2016-10-15] MEDS: REGARDING ANTICOAG MISC SCH (09:32)
--- NOTE | 2016-10-15 10:13 | SOAPPROG ---
SOAP Progress Note Assessment/Plan: Assessment/Plan: 66 Y M s/p pylorus sparing pancreaticoduodenectomy c cholecystectomy and portal V. venorrhaphy. High L BRAULIO output. Appears serosanguinous--thin, dark. Will check for amylase. Ileus. Passing gas, +BS, ng output decreased. D/c NGT. Start clears--patient advised to go slowly. Continue TPN. Epidural. Per anesthesia. Probable removal soon. Once removed, plan for betts d/ c. Lovenox held per nursing notes. Appreciate player manager input. On insulin sliding scale. Seen and examined with Dr. Robles. Continue ICU care. S: Minimal pain. No Nausea. +Flatus. Has a better attitude this morning he says. O: alert, nad no jaundice clear anteriorly, no w/r/r, no wob rrr abd hypoactive BS, soft, inc cdi, no erythema urine clear yellow feet war, no edema 10/15/16 10:14 Objective: Vital Signs Temp Pulse Resp BP Pulse Ox 36.6 C 89 20 128/55 H 96 10/15/16 08:00 10/15/16 08:00 10/15/16 08:00 10/15/16 08:00 10/15/16 08:00 Laboratory Results 10/15/16 04:40 10/15/16 04:40 10/14/16 10/15/16 10/16/16 05:59 05:59 05:59 Intake Total 3006 2717 Output Total 2755 2196 Balance 251 521 PT 17.2 SEC (12.0-15.0) H 10/15/16 04:40 INR 1.41 (0.83-1.16) H 10/15/16 04:40 ICD10 Worksheet Patient Problems: Problems Problem Status Diagnosed Biliary obstruction due to cancer Acute bi Acute
--- NOTE | 2016-10-15 12:37 | PDINTPN ---
Ballistics Expert Forensic Progress Note Assessment/Plan: Assessment/Plan: * Pancreatic cancer, status post Whipple. Stable, doing acceptably. Drainage from Adriel-Larkin drain concerning for possible infection. Surgery aware and following. Not on antibiotics at this time, afebrile. No leukocytosis * Hyperglycemia: On insulin by sliding scale and in TPN * Bibasilar atelectasis, secondary to #1, as expected * Pain-controlled * Decreased urine output: Probably related to volume, improved * Nutrition: On TPN. * Mental status- much improved * DVT prophylaxis: On enoxaparin * GI prophylaxis: On famotidine * Anemia: Hematocrit 32.6, stable. Without evidence of ongoing bleeding. Follow. Subjective: Up in chair. Pain okay. Objective: Vital Signs Temp Pulse Resp BP Pulse Ox 36.6 C 89 20 128/55 H 96 10/15/16 08:00 10/15/16 08:00 10/15/16 08:00 10/15/16 08:00 10/15/16 08:00 Laboratory Results 10/15/16 04:40 10/15/16 04:40 10/14/16 10/15/16 10/16/16 05:59 05:59 05:59 Intake Total 3006 2717 Output Total 2755 2196 Balance 251 521 PT 17.2 SEC (12.0-15.0) H 10/15/16 04:40 INR 1.41 (0.83-1.16) H 10/15/16 04:40 Physical Exam - Physical Exam General Appearance: alert, mild distress, moderate distress EENT: PERRL/EOMI, normal ENT inspection, pharynx normal Neck: non-tender, full range of motion, supple, normal inspection Respiratory: crackles (few, bases), No respiratory distress, No wheezing Cardiac/Chest: normal peripheral pulses, regular rate, rhythm Abdomen: normal bowel sounds, non-tender, soft Male Genitalia: deferred Rectal: deferred Skin: normal color, warm/dry Extremities: normal range of motion, non-tender, normal inspection, normal capillary refill Neuro/Psych: no motor/sensory deficits, alert, normal mood/affect, oriented x 3 ICD10 Worksheet Patient Problems: Problems Problem Status Diagnosed Biliary obstruction due to cancer Acute bi Acute
[2016-10-15] MEDS: HYDROmorphONE/DILAUDID 1 MG/ML SYR IVP PRN ×3 (16:47→19:09)
[2016-10-15] MEDS ORDERED: NALOXONE HCL 0.4 MG/ML INJ IVP PRN ×2 (20:58→20:59)
[2016-10-15] MEDS: HYDROmorphONE/DILAUDID 6 MG/30 ML PCA IV PRN (21:17)
[2016-10-15] MEDS: TPN W/ FAMOTIDINE 1 EA BAG IV SCH (21:22)
[2016-10-16] MEDS: INSULIN REGULAR, HUMAN 100 UNIT/1 ML VIAL HIGH SC SCH ×6 (01:42→22:29)
[2016-10-16] MEDS: METOCLOPRAMIDE 10 MG/2 ML VIAL IVP SCH ×4 (03:47→22:29)
[2016-10-16] MEDS: NS 1,000 ML IV SCH (06:36)
[2016-10-16] MEDS: ENOXAPARIN 40 MG/0.4 ML SYR SC SCH (09:29)
--- NOTE | 2016-10-16 10:42 | SOAPPROG ---
SOAP Progress Note Assessment/Plan: Assessment/Plan: 66 Y M s/p pylorus sparing pancreaticoduodenectomy c cholecystectomy and portal V. venorrhaphy. High L BRAULIO output. Neg for amylase. Likely mobilizing old blood. Ileus. Improving. Continue clears today. Likely advance in am. Continue TPN. Epidural. Removed. Zambrano d/c this am. Follow bili. Elevated today at 2.4. Obstruction 2/2 edema of choledochojejunostomy? Appreciate engine builder input. On insulin sliding scale. Seen and examined with Dr. Robles. Transfer to [facility] status. 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 Not sure if passing gas. Sitting OOB in chair. O: alert, nad scleral icterus. clear anteriorly, no w/r/r, no wob rrr abd hypoactive BS, soft, inc cdi, no erythema urine clear yellow feet warm, no edema 10/16/16 10:37 Objective: Vital Signs Temp Pulse Resp BP Pulse Ox 36.7 C 97 18 114/62 97 10/16/16 08:27 10/16/16 08:27 10/16/16 08:27 10/16/16 08:27 10/16/16 08:27 Laboratory Results 10/15/16 04:40 10/15/16 04:40 10/15/16 10/16/16 10/17/16 05:59 05:59 05:59 Intake Total 2717 3315 Output Total 2196 1965 Balance 521 1350 PT 17.2 SEC (12.0-15.0) H 10/15/16 04:40 INR 1.41 (0.83-1.16) H 10/15/16 04:40 ICD10 Worksheet Patient Problems: Problems Problem Status Diagnosed Biliary obstruction due to cancer Acute bi Acute
--- NOTE | 2016-10-16 11:09 | PDINTPN ---
Dirt Bike Racer Progress Note Assessment/Plan: Assessment/Plan: * Pancreatic cancer, status post Whipple. Stable, doing acceptably. * Hyperglycemia: On insulin by sliding scale and in TPN * Bibasilar atelectasis, secondary to #1, as expected * Pain-epidural out. Comfortable. * Decreased urine output: Probably related to volume, improved * Nutrition: On TPN. * Mental status- much improved * DVT prophylaxis: On enoxaparin * GI prophylaxis: On famotidine * Anemia: Follow * Dispo-likely okay for floor Subjective: Comfortable. Objective: Vital Signs Temp Pulse Resp BP Pulse Ox 36.7 C 97 18 114/62 97 10/16/16 08:27 10/16/16 08:27 10/16/16 08:27 10/16/16 08:27 10/16/16 08:27 Laboratory Results 10/15/16 04:40 10/15/16 04:40 10/15/16 10/16/16 10/17/16 05:59 05:59 05:59 Intake Total 2717 3315 Output Total 2196 1965 Balance 521 1350 PT 17.2 SEC (12.0-15.0) H 10/15/16 04:40 INR 1.41 (0.83-1.16) H 10/15/16 04:40 Physical Exam - Physical Exam General Appearance: alert, no apparent distress EENT: PERRL/EOMI, normal ENT inspection, pharynx normal Neck: non-tender, full range of motion, supple Respiratory: chest non-tender, lungs clear, normal breath sounds Cardiac/Chest: normal peripheral pulses, regular rate, rhythm, systolic murmur Peripheral Pulses: 2+: carotid (R), carotid (L), femoral (R), femoral (L), dorsalis-pedis (R), dorsalis-pedis (L) Abdomen: normal bowel sounds, non-tender, soft Male Genitalia: deferred Rectal: deferred Skin: normal color, warm/dry Extremities: normal range of motion, non-tender, normal inspection, normal capillary refill ICD10 Worksheet Patient Problems: Problems Problem Status Diagnosed Biliary obstruction due to cancer Acute bi Acute
[2016-10-16 12:17] LABS: SPECIMEN HEMOLYSIS 116
[2016-10-16 13:12] LABS: ALANINE AMINOTRANSFERASE 553 IU/L (21-72); ALBUMIN 1.4 g/dL (3.5-5.0); ALKALINE PHOSPHATASE 145 IU/L (38-126); ANION GAP 7 mEq/L (8-16); ASPARTATE AMINOTRANSFERASE 143 IU/L (17-59); BILIRUBIN,TOTAL 3.7 mg/dL (0.1-1.4); CALCIUM 6.6 mg/dL (8.5-10.4); CARBON DIOXIDE 25 mEq/l (22-31); CHLORIDE 106 mEq/L (97-110); CREATININE 0.8 mg/dL (0.7-1.3); GLOMERULAR FILTRATION RATE > 60; GLUCOSE 246 mg/dL (70-100); POTASSIUM 3.3 mEq/L (3.5-5.2); SODIUM 138 mEq/L (134-144); TOTAL PROTEIN 3.8 g/dL (6.3-8.2)
[2016-10-16 13:23] LABS: BILIRUBIN-CONJUGATED 2.7 mg/dL (0.0-0.5)
[2016-10-16] MEDS: POTASSIUM Cl (KCl) 50 ML IV SCH ×2 (15:19→18:40)
[2016-10-16] MEDS: TPN W/ FAMOTIDINE 1 EA BAG IV SCH (21:09)
[2016-10-17] MEDS: INSULIN REGULAR, HUMAN 100 UNIT/1 ML VIAL HIGH SC SCH ×6 (02:13→21:48)
[2016-10-17] MEDS: NS 1,000 ML IV SCH (04:12)
[2016-10-17] MEDS: METOCLOPRAMIDE 10 MG/2 ML VIAL IVP SCH ×4 (04:12→20:32)
[2016-10-17 05:24] LABS: ANION GAP 4 mEq/L (8-16); CALCIUM 6.7 mg/dL (8.5-10.4); CARBON DIOXIDE 27 mEq/l (22-31); CHLORIDE 108 mEq/L (97-110); CREATININE 0.8 mg/dL (0.7-1.3); GLOMERULAR FILTRATION RATE > 60; GLUCOSE 124 mg/dL (70-100); POTASSIUM 3.2 mEq/L (3.5-5.2); SODIUM 139 mEq/L (134-144)
[2016-10-17] MEDS ORDERED: PROTOCOL POTASSIUM 1 DOSE MISC PRN (06:14)
[2016-10-17] MEDS: POTASSIUM Cl (KCl) 50 ML IV SCH ×5 (06:28→23:54)
[2016-10-17 07:39] LABS: MAGNESIUM 1.6 mg/dL (1.6-2.3)
[2016-10-17 08:41] LABS: ALBUMIN 1.3 g/dL (3.5-5.0); BILIRUBIN,TOTAL 3.8 mg/dL (0.1-1.4); BILIRUBIN-CONJUGATED 2.6 mg/dL (0.0-0.5); BILIRUBIN-UNCONJUGATED 1.2 mg/dL (0.0-1.1); TOTAL PROTEIN 3.7 g/dL (6.3-8.2)
--- NOTE | 2016-10-17 09:02 | SOAPPROG ---
<Kylie Mcarthur - Last Filed: 10/17/16 10:50> SOAP Progress Note Assessment/Plan: Assessment: will order CT ab pelvis and send drains for bili Plan: 10/17/16 10:50 Objective: Vital Signs Temp Pulse Resp BP Pulse Ox 36.8 C 91 19 104/57 L 93 10/17/16 07:55 10/17/16 10:00 10/17/16 10:00 10/17/16 10:00 10/17/16 10:00 Laboratory Results 10/15/16 04:40 10/17/16 04:35 10/16/16 10/17/16 10/18/16 05:59 05:59 05:59 Intake Total 3315 3768 Output Total 1965 2420 Balance 1350 1348 PT 17.2 SEC (12.0-15.0) H 10/15/16 04:40 INR 1.41 (0.83-1.16) H 10/15/16 04:40 ICD10 Worksheet Patient Problems: Problems Problem Status Diagnosed Biliary obstruction due to cancer Acute bi Acute <Nhi Nagel Jane - Last Filed: 10/17/16 12:40> SOAP Progress Note Assessment/Plan: Assessment/Plan: 66 Y M s/p pylorus sparing pancreaticoduodenectomy c cholecystectomy and portal V. venorrhaphy. Bili increasing, majority is conjugated. Some concern for blockage at choledochojejunostomy. Will hold off on advancing diet. CT abd/pel today. D/w' ed Drs. Mcarthur and Geo. S: Passing lots of gas. No BM. No N/V. Walked yesterday. Pain controlled. O: alert, nad scleral icterus. clear anteriorly, no w/r/r, no wob rrr abd hypoactive BS, soft, inc cdi, no erythema urine clear yellow feet warm, no edema 10/17/16 09:00 Objective: Vital Signs Temp Pulse Resp BP Pulse Ox 36.8 C 95 24 H 126/68 H 92 10/17/16 07:55 10/17/16 07:55 10/17/16 07:55 10/17/16 07:55 10/17/16 07:55 Laboratory Results 10/15/16 04:40 10/17/16 04:35 10/16/16 10/17/16 10/18/16 05:59 05:59 05:59 Intake Total 3310 3768 Output Total 1051 2420 Balance 1350 1348 PT 17.2 SEC (12.0-15.0) H 10/15/16 04:40 INR 1.41 (0.83-1.16) H 10/15/16 04:40
[2016-10-17] MEDS: HYDROmorphONE/DILAUDID 6 MG/30 ML PCA IV PRN (09:14)
[2016-10-17] MEDS: ENOXAPARIN 40 MG/0.4 ML SYR SC SCH (09:28)
[2016-10-17 12:30] LABS: BILIRUBIN,TOTAL 7.3 mg/dL (0.1-1.4)
[2016-10-17 12:44] LABS: BILIRUBIN-CONJUGATED 7.6 mg/dL (0.0-0.5); BILIRUBIN-UNCONJUGATED < -0.3 mg/dL (0.0-1.1)
[2016-10-17] MEDS ORDERED: IOPAMIDOL (ISOVUE-300) 50 ML VIAL IV ONE (15:50)
--- NOTE | 2016-10-17 17:33 | CT ---
CT Abdomen and Pelvis With Oral and IV Contrast Indication: Dull abdominal pain after Whipple. Technique: 1.25 mm contiguous helical axial scanning through the abdomen and pelvis after the unevent ful administration of 90 mL of Isovue 300. Routine reconstructions in the coronal and sagittal planes . Dose reduction technique was performed. FINDINGS: There is bilateral effusions with atelectatic change. The left lobe of the liver including segments 2, 3, and 4 is completely necrotic with a large amount of debris and gas. There is some retraction injury of the right lobe of the liver. A subhepatic drain is in good position. There is very little fluid present. I see no evidence of active contrast extrav asation. The patient is status post Whipple procedure with a small residual tail of the pancreas. The re is a splenule next to the spleen. Some fluid is tracking down the paracolic gutter and into the pe lvis. Mild anasarca is present. IMPRESSION: 1. Complete necrosis of the left lobe of the liver. 2. The remainder right lobe of the liver has some mild retraction injury. 3. Bibasilar atelectatic changes. 4. Drains are in relatively good position post Whipple. There is an upper abdominal drain and a subhe patic drain. They exit on the left and right respectively. Critical results relayed by Dr. Rojo to Dr. Mcarthur on October 17, 2016, 1720 hours.
[2016-10-17] MEDS ORDERED: MAGNESIUM HYDROXIDE 30 ML UDCUP PO PRN (18:51)
[2016-10-17] MEDS ORDERED: BISACODYL 10 MG SUPP PR PRN (18:51)
[2016-10-17] MEDS ORDERED: POLYETHYLENE GLYCOL 3350 17 GM PKT PO PRN (18:51)
[2016-10-17] MEDS ORDERED: LACTULOSE 20 GM/30 ML UDCUP PO PRN (18:51)
[2016-10-17 19:00] LABS: POTASSIUM 3.6 mEq/L (3.5-5.2)
[2016-10-17] MEDS: SENNOSIDES/DOCUSATE SODIUM TAB PO SCH (20:27)
[2016-10-17] MEDS: TPN W/ FAMOTIDINE 1 EA BAG IV SCH (20:32)
[2016-10-18 02:29] LABS: ADD DIFF? YES; ADD MORPH? NO; ADD SCAN? NO; ATYPICAL LYMPHOCYTE FLAG 30 (0-99); FRAGMENT RBC FLAG 0 (0-99); HEMATOCRIT 29.1 % (40.0-51.0); HEMOGLOBIN 9.6 g/dL (13.7-17.5); LEFT SHIFT FLG 70 (0-99); LIPEMIA HEMOLYSIS FLAG 80 (0-99); MEAN CELL HEMOGLOBIN 29.7 pg (27.9-34.1); MEAN CELL VOLUME 90.1 fL (81.5-99.8); MEAN PLATELET VOLUME 10.7 fL (8.7-11.7); PLATELET CLUMPS FLAG 20 (0-99); PLATELET COUNT 183 10^3/uL (150-400); RED BLOOD CELL COUNT 3.23 10^6/uL (4.40-6.38)
[2016-10-18 02:45] LABS: ALANINE AMINOTRANSFERASE 571 IU/L (21-72); ALBUMIN 1.4 g/dL (3.5-5.0); ALKALINE PHOSPHATASE 168 IU/L (38-126); ANION GAP 5 mEq/L (8-16); ASPARTATE AMINOTRANSFERASE 600 IU/L (17-59); BILIRUBIN,TOTAL 4.5 mg/dL (0.1-1.4); CALCIUM 6.6 mg/dL (8.5-10.4); CARBON DIOXIDE 26 mEq/l (22-31); CHLORIDE 107 mEq/L (97-110); CREATININE 0.9 mg/dL (0.7-1.3); GLOMERULAR FILTRATION RATE > 60; GLUCOSE 104 mg/dL (70-100); MAGNESIUM 1.7 mg/dL (1.6-2.3); POTASSIUM 4.1 mEq/L (3.5-5.2); SODIUM 138 mEq/L (134-144); TOTAL PROTEIN 4.1 g/dL (6.3-8.2); TRIGLYCERIDE 88 mg/dL (40-150)
[2016-10-18] MEDS: INSULIN REGULAR, HUMAN 100 UNIT/1 ML VIAL HIGH SC SCH ×5 (02:50→21:00)
[2016-10-18 02:54] LABS: APTT 30.6 SEC (23.0-38.0); INR 1.63 (0.83-1.16); PROTIME(PATIENT) 19.4 SEC (12.0-15.0)
[2016-10-18 02:55] LABS: BILIRUBIN-CONJUGATED 3.2 mg/dL (0.0-0.5); BILIRUBIN-UNCONJUGATED 1.3 mg/dL (0.0-1.1)
[2016-10-18 03:05] LABS: POLYCHROMASIA 2+
[2016-10-18 03:06] LABS: LARGE PLATELETS PRESENT; PLATELET ESTIMATE ADEQUATE (ADEQ)
[2016-10-18] MEDS: METOCLOPRAMIDE 10 MG/2 ML VIAL IVP SCH ×4 (04:59→21:01)
[2016-10-18] MEDS: ENOXAPARIN 40 MG/0.4 ML SYR SC SCH (08:59)
--- NOTE | 2016-10-18 09:44 | PDINTPN ---
Marble Rubber Progress Note Assessment/Plan: Assessment/Plan: * Pancreatic cancer, status post Whipple. Stable, doing acceptably. * Necrosis left lobe of liver-follow * Hyperglycemia: On insulin by sliding scale and in TPN * Bibasilar atelectasis, secondary to #1, as expected * Pain-epidural out. Comfortable. * Nutrition: On TPN. * Mental status- much improved * DVT prophylaxis: On enoxaparin * GI prophylaxis: On famotidine * Anemia: Follow Subjective: Comfortable. Pain okay Objective: Vital Signs Temp Pulse Resp BP Pulse Ox 37.7 C 105 H 23 H 105/57 L 92 10/18/16 07:53 10/18/16 07:53 10/18/16 07:53 10/18/16 07:53 10/18/16 07:53 Laboratory Results 10/18/16 02:15 10/18/16 02:15 10/17/16 10/18/16 10/19/16 05:59 05:59 05:59 Intake Total 3768 2969 Output Total 2420 1900 140 Balance 1348 1069 -140 PT 19.4 SEC (12.0-15.0) H 10/18/16 02:35 INR 1.63 (0.83-1.16) H 10/18/16 02:35 Laboratory Results 10/18/16 02:15 10/18/16 02:15 10/18/16 10/18/16 10/15/16 02:35 02:15 04:40 PT 19.4 H SEC 17.2 H SEC (12.0 - 15.0) (12.0 - 15.0) INR 1.63 H 1.41 H (0.83 - 1.16) (0.83 - 1.16) APTT 30.6 SEC 27.0 SEC (23.0 - 38.0) (23.0 - 38.0) Calcium 6.6 L mg/dL 7.2 L mg/dL (8.5 - 10.4) (8.5 - 10.4) Phosphorus 3.3 D mg/dL (2.5 - 4.5) Magnesium 1.7 mg/dL 2.0 mg/dL (1.6 - 2.3) (1.6 - 2.3) Total Bilirubin 4.5 H mg/dL 2.4 H D mg/dL (0.1 - 1.4) (0.1 - 1.4) Conjugated Bilirubin 3.2 H mg/dL 1.7 H mg/dL (0.0 - 0.5) (0.0 - 0.5) Unconjugated Bilirubin 1.3 H mg/dL 0.7 mg/dL (0.0 - 1.1) (0.0 - 1.1) AST 600 H IU/L 235 H IU/L (17 - 59) (17 - 59) ALT 571 H IU/L 928 H IU/L (21 - 72) (21 - 72) Alkaline Phosphatase 168 H IU/L 153 H IU/L (38 - 126) (38 - 126) Total Protein 4.1 L g/dL 3.6 L g/dL (6.3 - 8.2) (6.3 - 8.2) Albumin 1.4 L g/dL 1.6 L g/dL (3.5 - 5.0) (3.5 - 5.0) Triglycerides 88 mg/dL 89 mg/dL (40 - 150) (40 - 150) Physical Exam - Physical Exam General Appearance: alert, no apparent distress EENT: PERRL/EOMI, normal ENT inspection, pharynx normal Neck: non-tender, full range of motion, supple, normal inspection Respiratory: decreased breath sounds, No respiratory distress, No wheezing Cardiac/Chest: normal peripheral pulses, regular rate, rhythm, systolic murmur Peripheral Pulses: 2+: carotid (R), carotid (L), femoral (R), femoral (L), dorsalis-pedis (R), dorsalis-pedis (L) Abdomen: normal bowel sounds, soft, No non-tender Male Genitalia: deferred Rectal: deferred Skin: normal color, warm/dry ICD10 Worksheet Patient Problems: Problems Problem Status Diagnosed Biliary obstruction due to cancer Acute bi Acute
[2016-10-18] MEDS: SENNOSIDES/DOCUSATE SODIUM TAB PO SCH ×2 (10:55→22:32)
[2016-10-18] MEDS ORDERED: PIPERACILLIN/TAZO 4.5 GM/DEX 100 ML IV SCH (14:00)
[2016-10-18] MEDS: PIPERACILLIN NA/TAZO 4.5 GM in D5W 100 ML IV SCH ×2 (15:01→21:00)
[2016-10-18] MEDS ORDERED: IOPAMIDOL (ISOVUE 370) 100 ML BTL IV ONE (15:07)
--- NOTE | 2016-10-18 16:02 | US ---
Right Upper Quadrant Abdominal Sonogram with duplex Doppler analysis History: Evaluate blood supply to liver with special attention to the left lobe, abnormality identifi ed on CT October 17, 2016, Whipple procedure done October 09, 2016 Findings: There is prominent shadowing in the left lobe of the liver related to the gas present throu ghout the left lobe seen on the recent. Normal flow is identified in the main and right portal veins and both the middle and right hepatic vein. There is probably flow in the left hepatic vein. The left portal vein may or may not be visualized. It was filled with gas on the prior CT. The hepatic artery is not identified and possibly thrombosed. A thin linear structure is present in the inferior vena c augustus and could potentially be a catheter versus a thin thrombus. Normal flow is identified in both the splenic artery and vein. There is no ascites. Impression: 1. No obvious flow in the hepatic artery or its intrahepatic branches raises the possibility of hepat ic artery thrombosis. Recommend CTA with IV contrast (arterial , portal and delayed venous phases) if possible. 2. Diffuse gas throughout the left lobe of the liver is suspicious for necrosis. 3. Thin mobile thrombus vs catheter in the inferior vena cava. Results communicated to Dr. Mcarthur at 4 pm.
[2016-10-18] MEDS: HYDROmorphONE/DILAUDID 6 MG/30 ML PCA IV PRN (17:32)
[2016-10-18 18:18] LABS: POTASSIUM 4.5 mEq/L (3.5-5.2)
[2016-10-18] MEDS: TPN W/ FAMOTIDINE 1 EA BAG IV SCH (21:00)
--- NOTE | 2016-10-18 21:57 | CT ---
CT Angiography of the Abdomen and Pelvis Clinical Indications: Evaluate patency of the left hepatic artery and left portal vein. Status post Whipple procedure, with left hepatic lobe necrosis. Technique: Thinly collimated multidetector helical data were obtained through the abdomen and pelvis during the administration of 90 mL of Isovue-370 IV contrast during the arterial phase of contrast e nhancement. Repeat 5-mm images are obtained in venous phase. Images were then transferred to an [facility] workstation where multiplanar and three-dimensional reconstructions were performed by the ra diologist. Appropriate images were stored on PACS. Dose reduction techniques were utilized. COMPARISON: October 17, 2016. Findings CT Angiography: The celiac trunk, SMA are widely patent, without stenosis. There is truncation of the main hepatic artery shortly after its takeoff from the celiac trunk. The splenic artery is widely patent. The left gastric artery is widely patent. But there is no antegrad e flow on arterial phase in the hepatic artery distribution. The stump of the hepatic artery measure s about 8 mm beyond its bifurcation. This phenomenon persists in the venous phase. Bilateral phreni c arteries are also seen, also patent, right larger than the left. Otherwise, the patient has patent bilateral single renal arteries, tortuous iliac arteries, without c alcification, aneurysm, or dissection. CT Abdomen and Pelvis: The main portal vein is patent, as is SMV distally. At the proximal SMV, whe re it junctions with the portal vein, there is a filling defect corresponding exactly to where surgic al clips are. I am unclear whether there is partial occlusion of the vein at this segment. Otherwise, the right portal vein is patent. The hepatic veins are patent. There is absence of flow in the left portal vein, which is seen as a thrombosed lumen. The combination of the absence of the hepatic artery and the thrombosed hepatic vein on the left contributes to the appearance of left hepa tic necrosis. There is mild right-sided periportal edema. There is hypodensity at the inferior edge of the right h epatic lobe, following hepatic vein distribution, that I am unclear what the etiology of this is. In the setting of trauma, this would represent a laceration or hematoma. Could this represent retracti on device injury to the liver? There is no capsular bleed. Abdominal drains are noted in place. Otherwise, small amount of free air and extensive amount of left hepatic necrosis are unchanged. The re is ascites layering down to the right lower quadrant, unchanged. Bowels are overall normal. IMPRESSIONS 1. 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 There is no arterial distribution to either right or left hepatic lobe. 2. Patent right portal vein and thrombosed left portal vein. 3. Absence of both arterial and venous flow contributes to the left hepatic necrosis. 4. Patent hepatic veins. 5. Probable traction injury to the inferior right hepatic parenchyma. 6. Otherwise, no change in bilateral pleural effusion, consolidation, and free air and ascites in th e abdomen. Findings are called to Dr. Kylie Torres at the time of this reading.
[2016-10-19] MEDS: NS 1,000 ML IV SCH ×2 (02:23→14:11)
[2016-10-19] MEDS: INSULIN REGULAR, HUMAN 100 UNIT/1 ML VIAL HIGH SC SCH ×6 (02:26→23:47)
[2016-10-19] MEDS: METOCLOPRAMIDE 10 MG/2 ML VIAL IVP SCH ×4 (04:28→22:43)
[2016-10-19 05:27] LABS: ANION GAP 4 mEq/L (8-16); CALCIUM 6.4 mg/dL (8.5-10.4); CARBON DIOXIDE 24 mEq/l (22-31); CHLORIDE 107 mEq/L (97-110); CREATININE 0.9 mg/dL (0.7-1.3); GLOMERULAR FILTRATION RATE > 60; GLUCOSE 106 mg/dL (70-100); POTASSIUM 4.3 mEq/L (3.5-5.2); SODIUM 135 mEq/L (134-144)
[2016-10-19] MEDS: PIPERACILLIN NA/TAZO 4.5 GM in D5W 100 ML IV SCH ×3 (06:51→22:43)
[2016-10-19] MEDS: SENNOSIDES/DOCUSATE SODIUM TAB PO SCH ×2 (07:54→22:18)
[2016-10-19] MEDS: ENOXAPARIN 40 MG/0.4 ML SYR SC SCH (07:54)
--- NOTE | 2016-10-19 09:11 | SOAPPROG ---
DELIA Progress Note Assessment/Plan: Assessment: s/p whipple Necrotic left lobe liver will order cta liver and ultrasound for duplex. Will eval for clot and to see if hepatic artery patent start briadna [facility] S: Sitting up in chair - pain controlled drains with bilious dark fluid incision cdi CT with hepatic artery out L portal vein out No urgency to debride Plan: 10/17/16 10:50 10/19/16 09:07 Objective: Vital Signs Temp Pulse Resp BP Pulse Ox 36.6 C 84 20 116/51 L 95 10/19/16 07:50 10/19/16 07:50 10/19/16 07:50 10/19/16 07:50 10/19/16 07:50 Laboratory Results 10/18/16 02:15 10/19/16 04:40 10/18/16 10/19/16 10/20/16 05:59 05:59 05:59 Intake Total 2969 5931 Output Total 1900 1832 Balance 1069 4099 PT 19.4 SEC (12.0-15.0) H 10/18/16 02:35 INR 1.63 (0.83-1.16) H 10/18/16 02:35 ICD10 Worksheet Patient Problems: Problems Problem Status Diagnosed Biliary obstruction due to cancer Acute bi Acute
--- NOTE | 2016-10-19 09:13 | SOAPPROG ---
DELIA Progress Note Assessment/Plan: Assessment: s/p whipple - T3N0 uncinate margin positive Necrotic left lobe liver - may need debridement vs left hepatectomy Hepatic artery out L portal vein out Will discuss with hepatobiliary team at [facility] Dr. Guardado has number. Will be in today R BRAULIO drain out - will remove Continue clears Continue zosyn S: Sitting up in chair - pain controlled R drain with holes out - removed L drain with bilious dark fluid incision cdi Plan: 10/17/16 10:50 10/19/16 09:07 10/19/16 09:11 Objective: Vital Signs Temp Pulse Resp BP Pulse Ox 36.6 C 84 20 116/51 L 95 10/19/16 07:50 10/19/16 07:50 10/19/16 07:50 10/19/16 07:50 10/19/16 07:50 Laboratory Results 10/18/16 02:15 10/19/16 04:40 10/18/16 10/19/16 10/20/16 05:59 05:59 05:59 Intake Total 2969 5931 Output Total 1900 1832 Balance 1069 4099 PT 19.4 SEC (12.0-15.0) H 10/18/16 02:35 INR 1.63 (0.83-1.16) H 10/18/16 02:35 ICD10 Worksheet Patient Problems: Problems Problem Status Diagnosed Biliary obstruction due to cancer Acute bi Acute
--- NOTE | 2016-10-19 09:19 | PDINTPN ---
Band Teacher Progress Note Assessment/Plan: Assessment/Plan: * Pancreatic cancer, status post Whipple. Stable, doing acceptably. * Necrosis left lobe of liver-follow * Hyperglycemia: On insulin by sliding scale and in TPN * Pain-controlled. Comfortable. * Nutrition: On TPN. * Mental status- much improved * DVT prophylaxis: On enoxaparin * GI prophylaxis: On famotidine * Anemia: Follow Subjective: Up in chair. Comfortable. Objective: Vital Signs Temp Pulse Resp BP Pulse Ox 36.6 C 84 20 116/51 L 95 10/19/16 07:50 10/19/16 07:50 10/19/16 07:50 10/19/16 07:50 10/19/16 07:50 Laboratory Results 10/18/16 02:15 10/19/16 04:40 10/18/16 10/19/16 10/20/16 05:59 05:59 05:59 Intake Total 2969 5931 Output Total 1900 1832 Balance 1069 4099 PT 19.4 SEC (12.0-15.0) H 10/18/16 02:35 INR 1.63 (0.83-1.16) H 10/18/16 02:35 Physical Exam - Physical Exam General Appearance: alert, no apparent distress EENT: PERRL/EOMI, normal ENT inspection, pharynx normal Neck: non-tender, full range of motion, supple, normal inspection Respiratory: chest non-tender, lungs clear, normal breath sounds Cardiac/Chest: normal peripheral pulses, regular rate, rhythm, systolic murmur Peripheral Pulses: 2+: carotid (R), carotid (L), femoral (R), femoral (L), dorsalis-pedis (R), dorsalis-pedis (L) Abdomen: soft, No non-tender Male Genitalia: deferred Rectal: deferred Skin: normal color, warm/dry ICD10 Worksheet Patient Problems: Problems Problem Status Diagnosed Biliary obstruction due to cancer Acute bi Acute
[2016-10-19 10:04] LABS: ADD DIFF? YES; ADD MORPH? NO; ADD SCAN? NO; ATYPICAL LYMPHOCYTE FLAG 30 (0-99); FRAGMENT RBC FLAG 0 (0-99); HEMATOCRIT 28.6 % (40.0-51.0); HEMOGLOBIN 9.7 g/dL (13.7-17.5); LEFT SHIFT FLG 50 (0-99); LIPEMIA HEMOLYSIS FLAG 90 (0-99); MEAN CELL HEMOGLOBIN 31.1 pg (27.9-34.1); MEAN CELL HEMOGLOBIN CONCENTR. 33.9 g/dL (32.4-36.7); MEAN CELL VOLUME 91.7 fL (81.5-99.8); MEAN PLATELET VOLUME 10.1 fL (8.7-11.7); PLATELET CLUMPS FLAG 50 (0-99); PLATELET COUNT 281 10^3/uL (150-400); RED BLOOD CELL COUNT 3.12 10^6/uL (4.40-6.38); RED CELL DISTRIBUTION WIDTH 15.2 % (11.5-15.2)
[2016-10-19 10:21] LABS: ALANINE AMINOTRANSFERASE 644 IU/L (21-72); ALBUMIN 1.6 g/dL (3.5-5.0); ALKALINE PHOSPHATASE 162 IU/L (38-126); ANION GAP 7 mEq/L (8-16); ASPARTATE AMINOTRANSFERASE 556 IU/L (17-59); BILIRUBIN,TOTAL 6.4 mg/dL (0.1-1.4); CALCIUM 6.7 mg/dL (8.5-10.4); CARBON DIOXIDE 23 mEq/l (22-31); CHLORIDE 105 mEq/L (97-110); CREATININE 0.9 mg/dL (0.7-1.3); GLOMERULAR FILTRATION RATE > 60; GLUCOSE 139 mg/dL (70-100); POTASSIUM 4.2 mEq/L (3.5-5.2); SODIUM 135 mEq/L (134-144); TOTAL PROTEIN 4.7 g/dL (6.3-8.2)
[2016-10-19 10:28] LABS: BILIRUBIN-CONJUGATED 4.9 mg/dL (0.0-0.5); BILIRUBIN-UNCONJUGATED 1.5 mg/dL (0.0-1.1)
[2016-10-19 10:46] LABS: PLATELET ESTIMATE ADEQUATE (ADEQ)
[2016-10-19 10:47] LABS: POLYCHROMASIA 1+
[2016-10-19 17:31] LABS: POTASSIUM 4.1 mEq/L (3.5-5.2)
[2016-10-19] MEDS: TPN W/ FAMOTIDINE 1 EA BAG IV SCH (22:17)
--- NOTE | 2016-10-19 23:11 | GCON ---
[f rep st] CONSULTATION DATE OF CONSULTATION: 10/19/2016 MEDICAL ONCOLOGY FOLLOWUP CONSULTATION RECOMMENDATIONS: 1. After the patient is sufficiently recovered postoperatively, and because of his positive margin w ith his resected well-differentiated adenoma of the pancreas, he will be a candidate for adjuvant rad iation plus chemotherapy, usually with 5-FU or Xeloda. This will need to wait, however, until he is adequately recovered postop and we are sure he does not require reoperation or have intraabdominal in fection or abscess. 2. Treatment in that case would be still with curative intent, although he would certainly be at hig h risk of recurrence. 3. The necrosis of the hepatic lobe is certainly very concerning. I think there are two potential w ays to proceed. Currently, there is not an absolutely clear answer. The first would be to follow isidra glover clinically on antibiotics and see if he can reabsorb the necrotic tissue without requiring the need for reoperation. We know from hepatic embolization and radiofrequency ablation that necrotic portio ns of the liver can reabsorb over a period of several weeks. Obviously, however, with the recent ext ensive intraabdominal surgery, that he is at risk for abscess formation seeding the area. If it does appear that he has an infection, then I think our hand will be forced and we will need to attempt to resect the necrotic tissue and drain the infection. 4. I am concerned about the patient's incision also. The lateral 8 cm of his abdominal incision is red and somewhat indurated. I have asked the nurse to demarcate the erythema so that we can follow i t over time. The patient will also apparently be seeing Dr. Guardado later on this evening. His input will certainly be valued in the clinical approach to take at this time. ASSESSMENT: This 66-year-old white male saw my partner, Dr. Austyn Scott, as an outpatient. At that time, he was found to have obstructive jaundice and a 10- to 20-pound weight loss. Stool had also b ecome light, and he developed abdominal cramping. He was found on CT scan to have a 29 mm tumor in t he head of his pancreas. He was felt to be a candidate for surgical resection. The patient did not have any obvious liver metastasis at time of initial staging. He drank alcohol fairly heavily in the past but quit drinking. He is now status post resection and has been actually doing fairly well exc ept for the hepatic necrosis of the left lobe of the liver. HISTORY OF PRESENT ILLNESS: Please see Assessment. PAST MEDICAL HISTORY: Remarkable for orthopedic surgery. SOCIAL HISTORY: He has not been a smoker but has previously had significant alcohol consumption. FAMILY HISTORY: Remarkable for 3 brothers who are alive and well. He had a brother who had prostate cancer. One sister had uterine cancer. Another sister is apparently alive and well. His mother di ed of congestive heart failure at age 96, and his father had diagnosis of leukemia at age 60 but at age 82. SOCIAL HISTORY: The patient is . 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 REVIEW OF SYSTEMS: Currently remarkable for some abdominal cramping, and he did have a bowel movemen t. He has also had jaundice. PHYSICAL EXAMINATION: GENERAL: Well-developed, alert male in mild, if any, distress. He is sitting up in the chair in the intensive care unit. His and his sister are at his bedside. HEENT: Mild jaundice. LUNGS: No rhonchi at this time. CARDIAC: Regular rate and rhythm. ABDOMEN: Distended abdomen. He does have a few bowel sounds noted. He still has lala in his inc ision and the lateral 8 cm of his subcostal shows erythema and induration. No drainage was noted at this time. DATA REVIEWED: His total bilirubin today is 6.4 and is predominantly conjugated at 4.9. His AST is elevated at 556, his ALT is elevated at 644, and his total protein is low at 4.7 with an albumin of 1 .6. His CBC today shows a white count of 22,870, with hemoglobin of 9.7, and a platelet count of 281 ,000. His INR yesterday was 1.63. His pathology report is remarkable for mucinous, well-differentiated adenocarcinoma of the pancreas, which appeared to be present at the posterior uncinate process margin and 2 mm in the superior margin of the specimen. There were 3 negative lymph nodes. There did appear to be adenocarcinoma invading the adjacent accessory spleen. Greatest dimension was 3 cm. Thank you very much for allowing us to continue to follow this patient as an inpatient and will regulo nue to follow him as an outpatient. I think the decision to take him back to the operating room is o ne of ongoing discussion with the various specialists, as well as taking into account his clinical si tuation. /[id number]/MODL
[2016-10-20] MEDS ORDERED: MEPERIDINE 25 MG/ML SYR IVP ONE
[2016-10-20] MEDS ORDERED: MEPERIDINE 25 MG/ML SYR ONE (00:10)
[2016-10-20] MEDS ORDERED: MEPERIDINE 25 MG/ML SYR IVP PRN (02:00)
[2016-10-20] MEDS: INSULIN REGULAR, HUMAN 100 UNIT/1 ML VIAL HIGH SC SCH ×5 (05:32→18:04)
[2016-10-20] MEDS: METOCLOPRAMIDE 10 MG/2 ML VIAL IVP SCH ×2 (05:33→09:22)
[2016-10-20 05:59] LABS: GLUCOSE 120 mg/dL (70-100); POTASSIUM 4.4 mEq/L (3.5-5.2)
[2016-10-20] MEDS: PIPERACILLIN NA/TAZO 4.5 GM in D5W 100 ML IV SCH ×3 (06:12→22:26)
[2016-10-20] MEDS: SENNOSIDES/DOCUSATE SODIUM TAB PO SCH (07:51)
[2016-10-20 09:33] LABS: ABSOLUTE IMMATURE GRANULOCYTES 0.14 10^3/uL (0.00-0.10); ADD DIFF? NO; ADD MORPH? NO; ADD SCAN? NO; ATYPICAL LYMPHOCYTE FLAG 20 (0-99); FRAGMENT RBC FLAG 0 (0-99); HEMATOCRIT 25.1 % (40.0-51.0); HEMOGLOBIN 8.3 g/dL (13.7-17.5); LEFT SHIFT FLG 50 (0-99); LIPEMIA HEMOLYSIS FLAG 80 (0-99); MEAN CELL HEMOGLOBIN 30.1 pg (27.9-34.1); MEAN CELL HEMOGLOBIN CONCENTR. 33.1 g/dL (32.4-36.7); MEAN CELL VOLUME 90.9 fL (81.5-99.8); MEAN PLATELET VOLUME 10.2 fL (8.7-11.7); PLATELET CLUMPS FLAG 10 (0-99); PLATELET COUNT 226 10^3/uL (150-400); RED BLOOD CELL COUNT 2.76 10^6/uL (4.40-6.38); RED CELL DISTRIBUTION WIDTH 15.2 % (11.5-15.2)
[2016-10-20 09:42] LABS: ALANINE AMINOTRANSFERASE 471 IU/L (21-72); ALBUMIN 1.3 g/dL (3.5-5.0); ALKALINE PHOSPHATASE 128 IU/L (38-126); ANION GAP 4 mEq/L (8-16); ASPARTATE AMINOTRANSFERASE 409 IU/L (17-59); BILIRUBIN,TOTAL 4.8 mg/dL (0.1-1.4); CALCIUM 6.4 mg/dL (8.5-10.4); CARBON DIOXIDE 24 mEq/l (22-31); CHLORIDE 107 mEq/L (97-110); CREATININE 0.8 mg/dL (0.7-1.3); GLOMERULAR FILTRATION RATE > 60; GLUCOSE 145 mg/dL (70-100); POTASSIUM 4.1 mEq/L (3.5-5.2); SODIUM 135 mEq/L (134-144); TOTAL PROTEIN 4.1 g/dL (6.3-8.2)
[2016-10-20 09:50] LABS: BILIRUBIN-CONJUGATED 3.6 mg/dL (0.0-0.5); BILIRUBIN-UNCONJUGATED 1.2 mg/dL (0.0-1.1)
[2016-10-20] MEDS: ENOXAPARIN 40 MG/0.4 ML SYR SC SCH (10:15)
--- NOTE | 2016-10-20 14:56 | SOAPPROG ---
SOAP Progress Note Assessment/Plan: Assessment: very unique and difficult situation with left lobe liver necrosis doing well with minimal pain or complaints temp last pm but afebrile now/ wound with mild erythema laterally wo drainage jossy drainage decreasing but purulent looking abd soft, nontender, +bs, +bms and flatus/ mild icterus lfts stable Plan: observe/ hepatectomy if situation deteriorates 10/20/16 14:53 Objective: Vital Signs Temp Pulse Resp BP Pulse Ox 36.5 C 99 22 H 157/75 H 95 10/20/16 12:00 10/20/16 14:20 10/20/16 14:20 10/20/16 14:20 10/20/16 14:20 Laboratory Results 10/20/16 09:25 10/20/16 09:25 10/19/16 10/20/16 10/21/16 05:59 05:59 05:59 Intake Total 5931 3680 Output Total 1832 325 Balance 4099 3355 PT 19.4 SEC (12.0-15.0) H 10/18/16 02:35 INR 1.63 (0.83-1.16) H 10/18/16 02:35 ICD10 Worksheet Patient Problems: Problems Problem Status Diagnosed Biliary obstruction due to cancer Acute bi Acute
[2016-10-20] MEDS: NS 1,000 ML IV SCH (17:23)
--- NOTE | 2016-10-20 18:28 | DX ---
Portable AP chest. October 20, 2016at 1758 History: Dyspnea. Comparison examination: October 10, 2016. Findings: Patchy atelectasis/infiltrates are present in the lower lobes bilaterally, new from prior e xamination. Heart size is normal. No pleural effusion. Right-sided PIC catheter is present. Impression: Bilateral lower lobe atelectasis/infiltrates, new.
[2016-10-20 18:29] LABS: POTASSIUM 4.3 mEq/L (3.5-5.2)
[2016-10-20] MEDS ORDERED: IBUPROFEN 600 MG TAB PO PRN (19:35)
[2016-10-20] MEDS: TPN W/ FAMOTIDINE 1 EA BAG IV SCH (22:26)
[2016-10-21] MEDS: INSULIN REGULAR, HUMAN 100 UNIT/1 ML VIAL HIGH SC SCH ×4 (01:02→19:20)
[2016-10-21] MEDS: SENNOSIDES/DOCUSATE SODIUM TAB PO SCH ×3 (01:03→21:36)
[2016-10-21 05:40] LABS: % IMMATURE GRANULYOCYTES 1.1 % (0.0-1.1); ABSOLUTE IMMATURE GRANULOCYTES 0.12 10^3/uL (0.00-0.10); ADD DIFF? NO; ADD MORPH? NO; ADD SCAN? NO; ATYPICAL LYMPHOCYTE FLAG 30 (0-99); FRAGMENT RBC FLAG 0 (0-99); HEMATOCRIT 25.2 % (40.0-51.0); HEMOGLOBIN 8.5 g/dL (13.7-17.5); LEFT SHIFT FLG 70 (0-99); LIPEMIA HEMOLYSIS FLAG 80 (0-99); MEAN CELL HEMOGLOBIN CONCENTR. 33.7 g/dL (32.4-36.7); MEAN PLATELET VOLUME 10.2 fL (8.7-11.7); PLATELET CLUMPS FLAG 0 (0-99); PLATELET COUNT 236 10^3/uL (150-400); RED BLOOD CELL COUNT 2.74 10^6/uL (4.40-6.38); RED CELL DISTRIBUTION WIDTH 15.6 % (11.5-15.2)
[2016-10-21 05:58] LABS: ALANINE AMINOTRANSFERASE 372 IU/L (21-72); ALBUMIN 1.3 g/dL (3.5-5.0); ALKALINE PHOSPHATASE 145 IU/L (38-126); ANION GAP 5 mEq/L (8-16); ASPARTATE AMINOTRANSFERASE 245 IU/L (17-59); BILIRUBIN,TOTAL 4.3 mg/dL (0.1-1.4); CALCIUM 6.4 mg/dL (8.5-10.4); CARBON DIOXIDE 23 mEq/l (22-31); CHLORIDE 108 mEq/L (97-110); CREATININE 0.8 mg/dL (0.7-1.3); GLOMERULAR FILTRATION RATE > 60; GLUCOSE 108 mg/dL (70-100); POTASSIUM 4.3 mEq/L (3.5-5.2); SODIUM 136 mEq/L (134-144); TOTAL PROTEIN 4.2 g/dL (6.3-8.2)
[2016-10-21 06:05] LABS: BILIRUBIN-CONJUGATED 3.3 mg/dL (0.0-0.5)
[2016-10-21] MEDS: PIPERACILLIN NA/TAZO 4.5 GM in D5W 100 ML IV SCH ×3 (06:19→22:33)
--- NOTE | 2016-10-21 09:11 | PDINTPN ---
Supply Chain Associate Progress Note Assessment/Plan: Assessment/Plan: * Pancreatic cancer, status post Whipple. Stable, doing acceptably. * Necrosis left lobe of liver-follow * Hyperglycemia: On insulin by sliding scale and in TPN * Pain-controlled. Comfortable. * Atelectasis-encourage IS * Nutrition: On TPN. * Mental status- much improved * DVT prophylaxis: On enoxaparin * GI prophylaxis: On famotidine * Anemia: Follow Overall feels better Subjective: Up in chair, eating. Comfortable Objective: Vital Signs Temp Pulse Resp BP Pulse Ox 36.5 C 80 23 H 125/69 H 94 10/21/16 07:54 10/21/16 07:54 10/21/16 07:54 10/21/16 07:54 10/21/16 07:54 Laboratory Results 10/21/16 05:20 10/21/16 05:20 10/20/16 10/21/16 10/22/16 05:59 05:59 05:59 Intake Total 3680 3857 Output Total 325 930 Balance 3355 2927 PT 19.4 SEC (12.0-15.0) H 10/18/16 02:35 INR 1.63 (0.83-1.16) H 10/18/16 02:35 Laboratory Results 10/21/16 05:20 10/21/16 05:20 10/21/16 10/20/16 10/19/16 05:20 05:15 22:34 Glucose 120 H mg/dL (70 - 100) POC Glucose 116 H mg/dL (70 - 100) Calcium 6.4 L mg/dL (8.5 - 10.4) Total Bilirubin 4.3 H mg/dL (0.1 - 1.4) Conjugated Bilirubin 3.3 H mg/dL (0.0 - 0.5) Unconjugated Bilirubin 1.0 mg/dL (0.0 - 1.1) AST 245 H IU/L (17 - 59) ALT 372 H IU/L (21 - 72) Alkaline Phosphatase 145 H IU/L (38 - 126) Total Protein 4.2 L g/dL (6.3 - 8.2) Albumin 1.3 L g/dL (3.5 - 5.0) 10/19/16 17:33 Glucose POC Glucose 208 H mg/dL (70 - 100) Calcium Total Bilirubin Conjugated Bilirubin Unconjugated Bilirubin AST ALT Alkaline Phosphatase Total Protein Albumin Physical Exam - Physical Exam General Appearance: WD/WN, alert, no apparent distress EENT: PERRL/EOMI, normal ENT inspection, pharynx normal, TMs normal Neck: non-tender, full range of motion, supple, normal inspection Respiratory: chest non-tender, lungs clear, normal breath sounds Cardiac/Chest: normal peripheral pulses, regular rate, rhythm, systolic murmur Peripheral Pulses: 2+: carotid (R), carotid (L), femoral (R), femoral (L), dorsalis-pedis (R), dorsalis-pedis (L) Abdomen: normal bowel sounds, non-tender, soft Male Genitalia: deferred Rectal: deferred Skin: normal color, warm/dry Neuro/Psych: no motor/sensory deficits, alert, normal mood/affect, oriented x 3 ICD10 Worksheet Patient Problems: Problems Problem Status Diagnosed Biliary obstruction due to cancer Acute bi Acute
[2016-10-21] MEDS: ENOXAPARIN 40 MG/0.4 ML SYR SC SCH (10:23)
--- NOTE | 2016-10-21 13:58 | SOAPPROG ---
SOAP Progress Note Assessment/Plan: Assessment: very unique and difficult situation with left lobe liver necrosis doing well with minimal pain or complaints temp last pm but afebrile now/ wound with mild erythema laterally wo drainage jossy drainage decreasing but purulent looking abd soft, nontender, +bs, +bms and flatus/ mild icterus lfts stable Plan: observe/ hepatectomy if situation deteriorates 10/20/16 14:53 10/21/16 13:56 STABLE/ AFEBRILE/ CXR REASONABLY CLEAR/ UO OK/ LABS IMPROVING/ ABD SOFT NONTENDER/ MILD ERYTHEMA AROUND LATERAL END OF INCISION Objective: Vital Signs Temp Pulse Resp BP Pulse Ox 36.5 C 80 23 H 125/69 H 94 10/21/16 07:54 10/21/16 07:54 10/21/16 07:54 10/21/16 07:54 10/21/16 07:54 Laboratory Results 10/21/16 05:20 10/21/16 05:20 10/20/16 10/21/16 10/22/16 05:59 05:59 05:59 Intake Total 3680 3857 Output Total 325 930 Balance 3355 2927 PT 19.4 SEC (12.0-15.0) H 10/18/16 02:35 INR 1.63 (0.83-1.16) H 10/18/16 02:35 ICD10 Worksheet Patient Problems: Problems Problem Status Diagnosed Biliary obstruction due to cancer Acute bi Acute
[2016-10-21] MEDS ORDERED: HYDROmorphONE/DILAUDID 1 MG/ML SYR IVP PRN (16:16)
[2016-10-21 20:06] LABS: POTASSIUM 8.2 mEq/L (3.5-5.2)
[2016-10-21] MEDS: HYDROmorphONE/DILAUDID 1 MG/ML SYR IVP SCH (20:38)
[2016-10-21 20:51] LABS: POTASSIUM 4.8 mEq/L (3.5-5.2)
[2016-10-21] MEDS: TPN W/ FAMOTIDINE 1 EA BAG IV SCH (21:35)
[2016-10-22] MEDS: HYDROmorphONE/DILAUDID 1 MG/ML SYR IVP SCH ×7 (00:21→21:24)
[2016-10-22] MEDS: INSULIN REGULAR, HUMAN 100 UNIT/1 ML VIAL HIGH SC SCH ×5 (02:05→22:08)
[2016-10-22 05:23] LABS: % IMMATURE GRANULYOCYTES 1.1 % (0.0-1.1); ABSOLUTE IMMATURE GRANULOCYTES 0.13 10^3/uL (0.00-0.10); ADD DIFF? NO; ADD MORPH? NO; ADD SCAN? NO; ATYPICAL LYMPHOCYTE FLAG 20 (0-99); FRAGMENT RBC FLAG 0 (0-99); HEMATOCRIT 27.4 % (40.0-51.0); LEFT SHIFT FLG 70 (0-99); LIPEMIA HEMOLYSIS FLAG 80 (0-99); MEAN CELL HEMOGLOBIN 30.2 pg (27.9-34.1); MEAN CELL HEMOGLOBIN CONCENTR. 32.8 g/dL (32.4-36.7); MEAN CELL VOLUME 91.9 fL (81.5-99.8); MEAN PLATELET VOLUME 9.8 fL (8.7-11.7); PLATELET CLUMPS FLAG 0 (0-99); PLATELET COUNT 303 10^3/uL (150-400); RED BLOOD CELL COUNT 2.98 10^6/uL (4.40-6.38); RED CELL DISTRIBUTION WIDTH 15.7 % (11.5-15.2)
[2016-10-22 05:30] LABS: ALANINE AMINOTRANSFERASE 281 IU/L (21-72); ALBUMIN 1.7 g/dL (3.5-5.0); ALKALINE PHOSPHATASE 214 IU/L (38-126); ANION GAP 5 mEq/L (8-16); ASPARTATE AMINOTRANSFERASE 128 IU/L (17-59); BILIRUBIN,TOTAL 4.5 mg/dL (0.1-1.4); CALCIUM 6.6 mg/dL (8.5-10.4); CARBON DIOXIDE 21 mEq/l (22-31); CHLORIDE 106 mEq/L (97-110); CREATININE 0.8 mg/dL (0.7-1.3); GLOMERULAR FILTRATION RATE > 60; GLUCOSE 136 mg/dL (70-100); MAGNESIUM 2.2 mg/dL (1.6-2.3); POTASSIUM 4.9 mEq/L (3.5-5.2); SODIUM 132 mEq/L (134-144); TOTAL PROTEIN 4.8 g/dL (6.3-8.2); TRIGLYCERIDE 135 mg/dL (40-150)
[2016-10-22 05:31] LABS: INR 1.47 (0.83-1.16); PROTIME(PATIENT) 17.8 SEC (12.0-15.0)
[2016-10-22 05:32] LABS: APTT 24.7 SEC (23.0-38.0)
[2016-10-22 05:36] LABS: BILIRUBIN-CONJUGATED 3.6 mg/dL (0.0-0.5); BILIRUBIN-UNCONJUGATED 0.9 mg/dL (0.0-1.1)
[2016-10-22] MEDS: PIPERACILLIN NA/TAZO 4.5 GM in D5W 100 ML IV SCH ×3 (05:47→21:23)
[2016-10-22] MEDS: ENOXAPARIN 40 MG/0.4 ML SYR SC SCH (08:53)
[2016-10-22] MEDS: SENNOSIDES/DOCUSATE SODIUM TAB PO SCH ×2 (08:54→21:25)
--- NOTE | 2016-10-22 11:23 | SOAPPROG ---
DELIA Progress Note Assessment/Plan: Assessment/Plan: 66 Y M s/p pylorus sparing pancreaticoduodenectomy c cholecystectomy and portal V. venorrhaphy. Left lobe hepatic necrosis. Bili stable. Continue BRAULIO and obs. Superficial surgical wound infection. Bedside I&D of lateral portion of chevron wound. No purulence. Culture taken. Pack daily. Obs. Eating well. D/c TPN. May need to restart this if he needs return to OR--this looking less likely. D/w Dr. Guardado. S: Walking with walker. Minimal pain-"What pain?" Eating well. Had eggs this am. O: alert, nad scleral icterus. clear anteriorly, no w/r/r, no wob rrr abd hypoactive BS, soft, inc cdi, no erythema drain opaque light green urine clear yellow feet warm, no edema 10/22/16 11:20 Objective: Vital Signs Temp Pulse Resp BP Pulse Ox 36.6 C 87 16 116/74 94 10/22/16 11:08 10/22/16 11:08 10/22/16 11:08 10/22/16 11:08 10/22/16 11:08 Microbiology 10/19/16 23:15 Urine Culture - Final Urine,Clean Catch 10/21/16 19:50 Gram Stain - Final Abdomen - Swab Laboratory Results 10/22/16 05:00 10/22/16 05:00 10/21/16 10/22/16 10/23/16 05:59 05:59 05:59 Intake Total 3857 1750 1045 Output Total 930 745 Balance 2927 1005 1045 PT 17.8 SEC (12.0-15.0) H 10/22/16 05:00 INR 1.47 (0.83-1.16) H 10/22/16 05:00 ICD10 Worksheet Patient Problems: Problems Problem Status Diagnosed Biliary obstruction due to cancer Acute bi Acute
[2016-10-22 21:22] LABS: POTASSIUM 5.1 mEq/L (3.5-5.2)
[2016-10-22] MEDS: NS 1,000 ML IV SCH (21:24)
[2016-10-23] MEDS: HYDROmorphONE/DILAUDID 1 MG/ML SYR IVP SCH ×7 (03:19→23:01)
[2016-10-23] MEDS: INSULIN REGULAR, HUMAN 100 UNIT/1 ML VIAL HIGH SC SCH (05:16)
[2016-10-23] MEDS: PIPERACILLIN NA/TAZO 4.5 GM in D5W 100 ML IV SCH ×3 (05:19→21:54)
[2016-10-23 05:45] LABS: % IMMATURE GRANULYOCYTES 1.2 % (0.0-1.1); ADD DIFF? NO; ADD MORPH? NO; ADD SCAN? YES; ATYPICAL LYMPHOCYTE FLAG 40 (0-99); FRAGMENT RBC FLAG 0 (0-99); HEMATOCRIT 26.2 % (40.0-51.0); HEMOGLOBIN 8.6 g/dL (13.7-17.5); LIPEMIA HEMOLYSIS FLAG 80 (0-99); MEAN CELL HEMOGLOBIN 30.5 pg (27.9-34.1); MEAN CELL HEMOGLOBIN CONCENTR. 32.8 g/dL (32.4-36.7); MEAN CELL VOLUME 92.9 fL (81.5-99.8); MEAN PLATELET VOLUME 9.4 fL (8.7-11.7); PLATELET CLUMPS FLAG 0 (0-99); PLATELET COUNT 318 10^3/uL (150-400); RED BLOOD CELL COUNT 2.82 10^6/uL (4.40-6.38); RED CELL DISTRIBUTION WIDTH 15.8 % (11.5-15.2)
[2016-10-23 05:52] LABS: LEFT SHIFT FLG 150 (0-99)
[2016-10-23 06:03] LABS: ALANINE AMINOTRANSFERASE 198 IU/L (21-72); ALBUMIN 1.4 g/dL (3.5-5.0); ALKALINE PHOSPHATASE 202 IU/L (38-126); ANION GAP 5 mEq/L (8-16); ASPARTATE AMINOTRANSFERASE 88 IU/L (17-59); BILIRUBIN,TOTAL 3.7 mg/dL (0.1-1.4); CALCIUM 6.8 mg/dL (8.5-10.4); CARBON DIOXIDE 21 mEq/l (22-31); CHLORIDE 106 mEq/L (97-110); CREATININE 0.8 mg/dL (0.7-1.3); GLOMERULAR FILTRATION RATE > 60; GLUCOSE 138 mg/dL (70-100); POTASSIUM 4.7 mEq/L (3.5-5.2); SODIUM 132 mEq/L (134-144); TOTAL PROTEIN 4.4 g/dL (6.3-8.2)
[2016-10-23 06:11] LABS: BILIRUBIN-CONJUGATED 2.7 mg/dL (0.0-0.5)
[2016-10-23 06:29] LABS: SCAN NEGATIVE
--- NOTE | 2016-10-23 07:34 | SOAPPROG ---
[id number] V. venorrhaphy. Left lobe hepatic necrosis. Bili down today--3.7. BRAULIO drain still with high output--470cc. Continue drainage and obs. Superficial surgical wound infection. Bedside I&D yesterday. Less erythema today. Culture pending. Pack daily. Obs. Continue zosyn, Eating well. TPN d/c'ed. May need to restart this if he needs return to OR-- this looking less likely. D/w Dr. Guardado. S: No complaints. Had multiple well formed BMs. O: alert, nad scleral icterus. clear anteriorly, no w/r/r, no wob rrr abd hypoactive BS, soft, inc cdi, no erythema drain opaque light green urine clear yellow feet warm, no edema 10/23/16 07:32 Objective: Vital Signs Temp Pulse Resp BP Pulse Ox 36.6 C 88 19 143/76 H 94 10/23/16 04:19 10/23/16 04:19 10/23/16 04:19 10/23/16 04:19 10/23/16 04:19 Microbiology 10/21/16 19:50 Gram Stain - Final Abdomen - Swab 10/20/16 19:35 Urine Culture - Final Urine,Clean Catch 10/22/16 08:49 Gram Stain - Final Abdomen - Swab 10/19/16 23:15 Urine Culture - Final Urine,Clean Catch Laboratory Results 10/23/16 05:20 10/23/16 05:20 10/22/16 10/23/16 10/24/16 05:59 05:59 05:59 Intake Total 1750 3795 1399 Output Total 745 1120 Balance 1005 2675 1399 PT 17.8 SEC (12.0-15.0) H 10/22/16 05:00 INR 1.47 (0.83-1.16) H 10/22/16 05:00 ICD10 Worksheet Patient Problems: Problems Problem Status Diagnosed Biliary obstruction due to cancer Acute bi Acute
--- NOTE | 2016-10-23 07:52 | SOAPPROG ---
SOAP Progress Note Assessment/Plan: Assessment: very unique and difficult situation with left lobe liver necrosis doing well with minimal pain or complaints temp last pm but afebrile now/ wound with mild erythema laterally wo drainage jossy drainage decreasing but purulent looking abd soft, nontender, +bs, +bms and flatus/ mild icterus lfts stable Plan: observe/ hepatectomy if situation deteriorates 10/20/16 14:53 10/21/16 13:56 STABLE/ AFEBRILE/ CXR REASONABLY CLEAR/ UO OK/ LABS IMPROVING/ ABD SOFT NONTENDER/ MILD ERYTHEMA AROUND LATERAL END OF INCISION 10/23/16 07:51 REMAINS AFEBRILE/ DRAINAGE DECREASED/ LFTs CONTINUE TO IMPROVE/ EATING/ +BM/ WOUND STABLE Objective: Vital Signs Temp Pulse Resp BP Pulse Ox 36.4 C 89 18 115/73 93 10/23/16 07:39 10/23/16 07:39 10/23/16 07:39 10/23/16 07:39 10/23/16 07:39 Microbiology 10/21/16 19:50 Gram Stain - Final Abdomen - Swab 10/20/16 19:35 Urine Culture - Final Urine,Clean Catch 10/22/16 08:49 Gram Stain - Final Abdomen - Swab 10/19/16 23:15 Urine Culture - Final Urine,Clean Catch Laboratory Results 10/23/16 05:20 10/23/16 05:20 10/22/16 10/23/16 10/24/16 05:59 05:59 05:59 Intake Total 1750 3795 1399 Output Total 745 1120 60 Balance 1005 2675 1339 PT 17.8 SEC (12.0-15.0) H 10/22/16 05:00 INR 1.47 (0.83-1.16) H 10/22/16 05:00 ICD10 Worksheet Patient Problems: Problems Problem Status Diagnosed Biliary obstruction due to cancer Acute bi Acute
[2016-10-23] MEDS: SENNOSIDES/DOCUSATE SODIUM TAB PO SCH ×2 (08:50→21:54)
[2016-10-23] MEDS: ENOXAPARIN 40 MG/0.4 ML SYR SC SCH (09:03)
[2016-10-23] MEDS: FAMOTIDINE 20 MG TAB PO SCH ×2 (09:03→21:54)
[2016-10-24] MEDS: PIPERACILLIN NA/TAZO 4.5 GM in D5W 100 ML IV SCH ×3 (05:21→20:53)
[2016-10-24] MEDS: HYDROmorphONE/DILAUDID 1 MG/ML SYR IVP SCH ×5 (05:22→20:54)
[2016-10-24] MEDS: SENNOSIDES/DOCUSATE SODIUM TAB PO SCH ×2 (07:43→20:55)
--- NOTE | 2016-10-24 08:11 | SOAPPROG ---
SOAP Progress Note Assessment/Plan: Assessment: very unique and difficult situation with left lobe liver necrosis doing well with minimal pain or complaints temp last pm but afebrile now/ wound with mild erythema laterally wo drainage jossy drainage decreasing but purulent looking abd soft, nontender, +bs, +bms and flatus/ mild icterus lfts stable Plan: observe/ hepatectomy if situation deteriorates 10/20/16 14:53 10/21/16 13:56 STABLE/ AFEBRILE/ CXR REASONABLY CLEAR/ UO OK/ LABS IMPROVING/ ABD SOFT NONTENDER/ MILD ERYTHEMA AROUND LATERAL END OF INCISION 10/23/16 07:51 REMAINS AFEBRILE/ DRAINAGE DECREASED/ LFTs CONTINUE TO IMPROVE/ EATING/ +BM/ WOUND STABLE 10/24/16 08:10 AFEBRILE/ DRAINAGE DOWN/ EATING/ WOUND STABLE/ HOPEFULLY HOME SOON WITH DRAIN / WILL NEED FU CT SCAN Objective: Vital Signs Temp Pulse Resp BP Pulse Ox 36.8 C 86 16 146/86 H 94 10/24/16 05:27 10/24/16 05:27 10/24/16 05:27 10/24/16 05:27 10/24/16 05:27 Microbiology 10/22/16 08:49 Gram Stain - Final Abdomen - Swab 10/21/16 19:50 Gram Stain - Final Abdomen - Swab Laboratory Results 10/23/16 05:20 10/23/16 05:20 10/23/16 10/24/16 10/25/16 05:59 05:59 05:59 Intake Total 3795 2674 Output Total 1120 740 Balance 2675 1934 PT 17.8 SEC (12.0-15.0) H 10/22/16 05:00 INR 1.47 (0.83-1.16) H 10/22/16 05:00 ICD10 Worksheet Patient Problems: Problems Problem Status Diagnosed Biliary obstruction due to cancer Acute bi Acute
[2016-10-24] MEDS: ENOXAPARIN 40 MG/0.4 ML SYR SC SCH (08:21)
[2016-10-24] MEDS: FAMOTIDINE 20 MG TAB PO SCH ×2 (08:22→20:53)
--- NOTE | 2016-10-24 08:40 | SOAPPROG ---
DELIA Progress Note Assessment/Plan: Assessment/Plan: 66 Y M s/p pylorus sparing pancreaticoduodenectomy c cholecystectomy and portal V. venorrhaphy. Left lobe hepatic necrosis. Doing well overall in setting of pancreatic CA and liver necrosis.--Afebrile. Eating. Solid BMs. Denies pain. Wounds beginning to granulate. Walking with walker to bathroom independently. BRAULIO output still high. Plan for CT abd/pel tomorrow. If ok, may start to plan d/c to home with drain. Reviewed wound culture. Continue zosyn for now while inpatient 2/2 liver necrosis. Consider keflex vs augmentin on d/c. Patient has seen Dr. Scott and will f/u with him. S: No complaints. O: alert, nad scleral icterus. clear anteriorly, no w/r/r, no wob rrr abd hypoactive BS, soft, wounds beginning to granulate. Less lateral wound erythema--more dusky, less bright. drain opaque light green feet warm, no edema 10/24/16 08:36 Objective: Vital Signs Temp Pulse Resp BP Pulse Ox 36.8 C 86 16 146/86 H 94 10/24/16 05:27 10/24/16 05:27 10/24/16 05:27 10/24/16 05:27 10/24/16 05:27 Microbiology 10/22/16 08:49 Gram Stain - Final Abdomen - Swab 10/21/16 19:50 Gram Stain - Final Abdomen - Swab Laboratory Results 10/23/16 05:20 10/23/16 05:20 10/23/16 10/24/16 10/25/16 05:59 05:59 05:59 Intake Total 3795 2674 Output Total 1120 740 80 Balance 2675 1934 -80 PT 17.8 SEC (12.0-15.0) H 10/22/16 05:00 INR 1.47 (0.83-1.16) H 10/22/16 05:00 ICD10 Worksheet Patient Problems: Problems Problem Status Diagnosed Biliary obstruction due to cancer Acute bi Acute
[2016-10-25] MEDS: HYDROmorphONE/DILAUDID 1 MG/ML SYR IVP SCH ×3 (00:06→08:48)
[2016-10-25] MEDS: PIPERACILLIN NA/TAZO 4.5 GM in D5W 100 ML IV SCH ×3 (05:14→20:50)
[2016-10-25] MEDS: ENOXAPARIN 40 MG/0.4 ML SYR SC SCH ×2 (08:48→09:06)
[2016-10-25] MEDS: FAMOTIDINE 20 MG TAB PO SCH ×2 (08:49→20:50)
[2016-10-25] MEDS: SENNOSIDES/DOCUSATE SODIUM TAB PO SCH ×2 (08:49→20:50)
--- NOTE | 2016-10-25 10:26 | SOAPPROG ---
SOAP Progress Note Assessment/Plan: Assessment: very unique and difficult situation with left lobe liver necrosis doing well with minimal pain or complaints temp last pm but afebrile now/ wound with mild erythema laterally wo drainage jossy drainage decreasing but purulent looking abd soft, nontender, +bs, +bms and flatus/ mild icterus lfts stable Plan: observe/ hepatectomy if situation deteriorates 10/20/16 14:53 10/21/16 13:56 STABLE/ AFEBRILE/ CXR REASONABLY CLEAR/ UO OK/ LABS IMPROVING/ ABD SOFT NONTENDER/ MILD ERYTHEMA AROUND LATERAL END OF INCISION 10/23/16 07:51 REMAINS AFEBRILE/ DRAINAGE DECREASED/ LFTs CONTINUE TO IMPROVE/ EATING/ +BM/ WOUND STABLE 10/24/16 08:10 AFEBRILE/ DRAINAGE DOWN/ EATING/ WOUND STABLE/ HOPEFULLY HOME SOON WITH DRAIN / WILL NEED FU CT SCAN 10/25/16 10:25 FEELING GREAT/ WOUND STABLE/ AFEBRILE/ EATING WELL/ +BMs/ STILL MODERATE JOSSY DRAINAGE/ CT PENDING TODAY Objective: Vital Signs Temp Pulse Resp BP Pulse Ox 36.7 C 104 H 18 136/78 H 93 10/25/16 07:33 10/25/16 07:33 10/25/16 07:33 10/25/16 07:33 10/25/16 07:33 Microbiology 10/19/16 20:40 Blood Culture - Final Blood 10/19/16 20:05 Blood Culture - Final Blood 10/21/16 19:50 Gram Stain - Final Abdomen - Swab Wound Culture - Final Citrobacter Koseri 10/22/16 08:49 Gram Stain - Final Abdomen - Swab Wound Culture - Final Citrobacter Koseri Laboratory Results 10/23/16 05:20 10/23/16 05:20 10/24/16 10/25/16 10/26/16 05:59 05:59 05:59 Intake Total 2674 3300 Output Total 740 335 70 Balance 1934 2965 -70 PT 17.8 SEC (12.0-15.0) H 10/22/16 05:00 INR 1.47 (0.83-1.16) H 10/22/16 05:00 ICD10 Worksheet Patient Problems: Problems Problem Status Diagnosed Biliary obstruction due to cancer Acute bi Acute
[2016-10-25] MEDS ORDERED: HYDROmorphONE/DILAUDID 1 MG/ML SYR IVP PRN (10:59)
[2016-10-25] MEDS ORDERED: IOPAMIDOL (ISOVUE-300) 100 ML BTL IV ONE (11:23)
[2016-10-25] MEDS: ALTEPLASE 2 MG VIAL IVP PRN ×2 (11:49→11:55)
--- NOTE | 2016-10-25 17:16 | CT ---
CT Scan of the Abdomen and Pelvis (With Contrast) at 1255 hours History: Pancreatic carcinoma status post Whipple procedure with infarction of the left lobe of the liver. Follow up. Comparison: CT October 18, 2016. Technique: Axial computed tomographic images of the abdomen and pelvis were obtained with the uneven tful intravenous administration of 90 mL Isovue-300 contrast. Arterial, portal venous and 5 minute de layed series performed. Oral contrast also. Dose reduction techniques were utilized. CT Abdomen Findings: Lung bases: Small bilateral pleural effusions with bilateral lower lobe atelectasis versus pneumonit is. Liver: Infarction and necrosis of the left lobe of the liver measuring 22.2 x 10.5 cm, similar to pr evious study. New areas of infarction involving the inferior aspect of the right lobe with a 4.5 x 3. 3 cm hypodense area on image 83 of series 4, a 6 x 3.5 cm hypodense necrotic area on image 94 of seri es 4, and a peripheral inferior medial 5.2 x 1.4 cm hypodense region, not identified on previous stud y. There is no flow into the hepatic veins consistent with complete occlusion. There is no flow in th e left portal vein with intraluminal thrombus. The central and right portal veins appear patent. Main portal vein also appears patent. There is flow of contrast in the celiac and superior mesenteric art marialuisa. Superior aspect of the right lobe of the liver demonstrates a 14 x 13 x 9 cm region of liver dandre t is intact at this time. Biliary system: Gallbladder is surgically absent. No biliary ductal dilation. Left-sided abdominal d rain courses anterior to the pancreatic bed and in the right upper quadrant. Spleen: No splenomegaly. Pancreas: Partial resection of the pancreatic head with the distal tail. Intact. There is a splenule or lymph node near the splenic hilum on image 111 of series 4. Incision site in the right upper quad rant of the abdomen. Adrenals: Normal. Kidneys: No obstruction or solid masses. Abdominal Aorta: Mild atherosclerotic aorta without aneurysm. Oral contrast in the stomach, small bowel and colon without obstruction. No evidence of extravasation or leak. Small to moderate amount of ascites in the visualized abdomen and pelvis without drainable abscess. Second drain noted in the left side of the midabdomen. No small bowel distention. CT Pelvis Findings: Sqoua-np-[id number] amount of ascites in the pelvis especially in the right lower quadrant. Oral contrast throughout the colon without diverticulitis or distal bowel obstruction. Blad javier contour is unremarkable. No destructive osseous lesions in the spine. Severe degenerative disk di sease at L5-S1. Impression: 1. Infarction of the left lobe of the liver with new areas of infarction in the inferior aspect of th e right lobe. The superior aspect of the right lobe appears intact. 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 2. No bowel obstruction. 3. [id number] amount of ascites in the abdomen and pelvis. 4. Small bilateral pleural effusions with bilateral lower lobe atelectasis or pneumonitis. 5. Status post Whipple procedure and partial pancreatectomy of the head and body. Findings and recommendations discussed with Dr. Dave Guardado at 1650 hour today.
[2016-10-26] MEDS: PIPERACILLIN NA/TAZO 4.5 GM in D5W 100 ML IV SCH ×3 (06:14→20:25)
[2016-10-26] MEDS: SENNOSIDES/DOCUSATE SODIUM TAB PO SCH (08:10)
[2016-10-26] MEDS: FAMOTIDINE 20 MG TAB PO SCH ×2 (08:10→20:25)
[2016-10-26] MEDS: ENOXAPARIN 40 MG/0.4 ML SYR SC SCH (08:10)
--- NOTE | 2016-10-26 11:40 | SOAPPROG ---
SOAP Progress Note Assessment/Plan: Assessment: 66yo male s/p whipple for pancreatic cancer, liver left lobe necrosis post-op. tolerating regular diet, having normal BM although some liquid stools after CT yesterday. PE awake alert comfortable Chest CTA B/L abdomen right transverse abdominal incision with two open area that connect in subcu layer, no erythema, slough on lower right wound opening. soft nontender abdomen EXt 1+ pitting edema CT possible new areas of necrosis right lobe of liver Plan debrided lower right wound at bedside, pt to shower then wounds will be repacked by nursing (continue current Bid dressing changes) 10/11/16 12:48 10/26/16 11:36 Objective: Vital Signs Temp Pulse Resp BP Pulse Ox 36.6 C 95 18 111/64 93 10/26/16 07:50 10/26/16 08:08 10/26/16 07:50 10/26/16 07:50 10/26/16 07:50 Microbiology 10/20/16 19:40 Blood Culture - Final Blood 10/19/16 20:40 Blood Culture - Final Blood 10/19/16 20:05 Blood Culture - Final Blood Laboratory Results 10/23/16 05:20 10/23/16 05:20 10/25/16 10/26/16 10/27/16 05:59 05:59 05:59 Intake Total 3300 3050 Output Total 335 290 85 Balance 2965 2760 -85 PT 17.8 SEC (12.0-15.0) H 10/22/16 05:00 INR 1.47 (0.83-1.16) H 10/22/16 05:00 ICD10 Worksheet Patient Problems: Problems Problem Status Diagnosed Biliary obstruction due to cancer Acute bi Acute
[2016-10-27] MEDS: SENNOSIDES/DOCUSATE SODIUM TAB PO SCH ×3 (01:22→21:26)
[2016-10-27] MEDS: PIPERACILLIN NA/TAZO 4.5 GM in D5W 100 ML IV SCH (05:14)
[2016-10-27] MEDS: FAMOTIDINE 20 MG TAB PO SCH ×2 (07:59→21:25)
[2016-10-27] MEDS: ENOXAPARIN 40 MG/0.4 ML SYR SC SCH (07:59)
[2016-10-27 08:18] LABS: HEMATOCRIT 30.2 % (40.0-51.0); LIPEMIA HEMOLYSIS FLAG 80 (0-99); MEAN CELL HEMOGLOBIN 30.8 pg (27.9-34.1); MEAN CELL HEMOGLOBIN CONCENTR. 33.1 g/dL (32.4-36.7); MEAN CELL VOLUME 92.9 fL (81.5-99.8); PLATELET COUNT 506 10^3/uL (150-400); RED BLOOD CELL COUNT 3.25 10^6/uL (4.40-6.38); RED CELL DISTRIBUTION WIDTH 16.3 % (11.5-15.2)
--- NOTE | 2016-10-27 09:12 | SOAPPROG ---
SOAP Progress Note Assessment/Plan: Assessment/plan - 66yo male s/p whipple c liver necrosis - VSS, HDS, afebrile -Tolerating reg diet and having bowel function - H&H stable at 10/30, WBC normal. - LFTs pending, will cont to trend given new CT findings on R side - Remaining BRAULIO with around 200cc drainage, slowing from 4oo earlier in the week. Will keep - CT yesterday shows persistent L sided liver necrosis, some new inferior R necrosis but majority of remaining R lobe viable - Plan to cont conservative management for the time being, no new changes in management 10/27/16 09:09 Subjective: Sleeping, pain appropriate. Tolerating diet with bowel function Objective: Vital Signs Temp Pulse Resp BP Pulse Ox 37.2 C 99 18 100/69 96 10/27/16 08:00 10/27/16 08:00 10/27/16 08:00 10/27/16 08:00 10/27/16 08:00 Microbiology 10/20/16 19:40 Blood Culture - Final Blood Laboratory Results 10/27/16 08:00 10/26/16 10/27/16 10/28/16 05:59 05:59 05:59 Intake Total 3050 4300 Output Total 290 321 Balance 2760 3979 PT 17.8 SEC (12.0-15.0) H 10/22/16 05:00 INR 1.47 (0.83-1.16) H 10/22/16 05:00 ICD10 Worksheet Patient Problems: Problems Problem Status Diagnosed Biliary obstruction due to cancer Acute bi Acute
[2016-10-27 09:27] LABS: ALANINE AMINOTRANSFERASE 119 IU/L (21-72); ALBUMIN 1.7 g/dL (3.5-5.0); ALKALINE PHOSPHATASE 307 IU/L (38-126); ANION GAP 4 mEq/L (8-16); ASPARTATE AMINOTRANSFERASE 66 IU/L (17-59); BILIRUBIN,TOTAL 2.6 mg/dL (0.1-1.4); BILIRUBIN-CONJUGATED 1.7 mg/dL (0.0-0.5); BILIRUBIN-UNCONJUGATED 0.9 mg/dL (0.0-1.1); CALCIUM 7.1 mg/dL (8.5-10.4); CARBON DIOXIDE 24 mEq/l (22-31); CHLORIDE 105 mEq/L (97-110); CREATININE 0.8 mg/dL (0.7-1.3); GLOMERULAR FILTRATION RATE > 60; GLUCOSE 131 mg/dL (70-100); POTASSIUM 4.1 mEq/L (3.5-5.2); SODIUM 133 mEq/L (134-144); TOTAL PROTEIN 4.8 g/dL (6.3-8.2)
[2016-10-27] MEDS: PIPERACILLIN/TAZO 4.5 GM/DEX 100 ML IV SCH ×2 (14:06→21:25)
[2016-10-28] MEDS: FAMOTIDINE 20 MG TAB PO SCH ×2 (09:31→18:25)
[2016-10-28] MEDS: SENNOSIDES/DOCUSATE SODIUM TAB PO SCH ×2 (09:32→22:07)
[2016-10-28] MEDS: ENOXAPARIN 40 MG/0.4 ML SYR SC SCH (09:33)
[2016-10-28] MEDS: PIPERACILLIN/TAZO 4.5 GM/DEX 100 ML IV SCH ×3 (09:58→22:09)
--- NOTE | 2016-10-28 14:16 | SOAPPROG ---
SOAP Progress Note Assessment/Plan: Assessment/plan - 66yo male s/p whipple c liver necrosis - VSS, HDS, afebrile -Looks good, feels good, pain controlled, appetite good - BRAULIO output slowing. - Rehab early this week. 10/27/16 09:09 10/28/16 14:15 10/28/16 14:16 Objective: Vital Signs Temp Pulse Resp BP Pulse Ox 36.6 C 97 16 124/69 H 90 L 10/28/16 08:50 10/28/16 08:50 10/28/16 08:50 10/28/16 08:50 10/28/16 08:50 Laboratory Results 10/27/16 08:00 10/27/16 08:00 10/27/16 10/28/16 10/29/16 05:59 05:59 05:59 Intake Total 4300 1650 Output Total 321 218 80 Balance 3979 1432 -80 PT 17.8 SEC (12.0-15.0) H 10/22/16 05:00 INR 1.47 (0.83-1.16) H 10/22/16 05:00 ICD10 Worksheet Patient Problems: Problems Problem Status Diagnosed Biliary obstruction due to cancer Acute bi Acute
[2016-10-29 05:40] VITALS: RESP 16
[2016-10-29] MEDS: PIPERACILLIN/TAZO 4.5 GM/DEX 100 ML IV SCH ×2 (05:55→13:34)
--- NOTE | 2016-10-29 09:33 | SOAPPROG ---
DELIA Progress Note Assessment/Plan: Assessment/Plan: 66 Y M s/p pylorus sparing pancreaticoduodenectomy c cholecystectomy and portal V. venorrhaphy. Left lobe hepatic necrosis. Doing well. D/c to SNF today with drain, PO abx, and wound care instructions. Has seen Dr. Scott. S: No complaints. O: alert, nad jaundice improved no wob rrr abd softly bloated. wounds clean, granulating. drain light green, thinner feet warm, no edema 10/29/16 09:26 Objective: Vital Signs Temp Pulse Resp BP Pulse Ox 36.9 C 91 16 117/79 92 10/29/16 04:00 10/29/16 04:00 10/29/16 04:00 10/29/16 04:00 10/29/16 04:00 Laboratory Results 10/27/16 08:00 10/27/16 08:00 10/28/16 10/29/16 10/30/16 05:59 05:59 05:59 Intake Total 1650 1750 Output Total 218 605 Balance 1432 1145 PT 17.8 SEC (12.0-15.0) H 10/22/16 05:00 INR 1.47 (0.83-1.16) H 10/22/16 05:00 ICD10 Worksheet Patient Problems: Problems Problem Status Diagnosed Biliary obstruction due to cancer Acute bi Acute
--- NOTE | 2016-10-29 09:38 | PDIAF ---
- Diagnosis Diagnosis: pancreatic cancer, s/p whipple Code Status: Full Code - Medication Management Discharge Medications: Medications to Continue on Transfer NK [No Known Home Meds] 10/01/16 [Last Taken Unknown] Discharge Medications: Refer to the Discharge Home Medication list for PRN reason. PICC Care - Routine: N/A - Orders Services needed: Home Care, Registered Nurse, Certified Mixing And Dispensing Supervisor, Physical Therapy, Occupational Therapy Home Care Face to Face: I certify that this patient was under my care and that I had the required [id number] encounter meeting the encounter requirements on the discharge day. My findings support the fact that the patient is homebound as defined in CMS Chapter 7 Medicare Benefits Manual 30.1.1, The condition of the patient is such that there exists a normal inability to leave home and consequently, leaving home would require a considerable and taxing effort. Diet Recommendation: no restrictions on diet Diet Texture: Regular Texture Diet Wound Care Instructions: pack wounds c plain gauze strip bid and cover with abd pad. - Labs/Radiology LFT Date: 11/01/16 - Follow Up Care Current Providers and Referrals: Austyn Scott MD [Medical Doctor] - Dave Guardado MD [Medical Doctor] - 3-5 days NONE *PRIMARY CARE P,. [Primary Care Provider] -
--- NOTE | 2016-10-29 09:39 | PDIAF ---
- Diagnosis Diagnosis: pancreatic cancer, s/p whipple Code Status: Full Code - Medication Management Discharge Medications: Medications to Continue on Transfer Amoxicillin/Clavulanate Pot [Augmentin 875 MG TAB (*)] 875 mg PO BID #14 tab [Last Taken Unknown] Ibuprofen [Motrin (*)] 600 mg PO Q6H PRN #0 tab 10/29/16 [Last Taken Unknown] Discharge Medications: Refer to the Discharge Home Medication list for PRN reason. PICC Care - Routine: N/A - Orders Services needed: Home Care, Registered Nurse, Certified Commercial Carpet Installer, Physical Therapy, Occupational Therapy Home Care Face to Face: I certify that this patient was under my care and that I had the required [id number] encounter meeting the encounter requirements on the discharge day. My findings support the fact that the patient is homebound as defined in CMS Chapter 7 Medicare Benefits Manual 30.1.1, The condition of the patient is such that there exists a normal inability to leave home and consequently, leaving home would require a considerable and taxing effort. Diet Recommendation: no restrictions on diet Diet Texture: Regular Texture Diet Wound Care Instructions: pack wounds c plain gauze strip bid and cover with abd pad. - Labs/Radiology LFT Date: 11/01/16 - Follow Up Care Current Providers and Referrals: Austyn Scott MD [Medical Doctor] - Dave Guardado MD [Medical Doctor] - 3-5 days NONE *PRIMARY CARE P,. [Primary Care Provider] -
--- NOTE | 2016-10-29 10:50 | PDIAF ---
- Diagnosis Diagnosis: pancreatic cancer, s/p whipple Code Status: Full Code - Medication Management Discharge Medications: Medications to Continue on Transfer Amoxicillin/Clavulanate Pot [Augmentin 875 MG TAB (*)] 875 mg PO BID #14 tab [Last Taken Unknown] Ibuprofen [Motrin (*)] 600 mg PO Q6H PRN #0 tab 10/29/16 [Last Taken Unknown] Discharge Medications: Refer to the Discharge Home Medication list for PRN reason. PICC Care - Routine: N/A - Orders Services needed: Registered Nurse, Certified Case Investigator, Physical Therapy, Occupational Therapy Diet Recommendation: no restrictions on diet Diet Texture: Regular Texture Diet Wound Care Instructions: Wound care orders: Please place wound vac (using the regular miranda vac dressing) to RUQ abdominal wound. Change M, W, Fr's. Ok to pack bid c plain gauze strip and cover with abd pad until wound vac available. thanks. signed Nhi Nagel PA-C 10/29/15 10:49 - Labs/Radiology LFT Date: 11/01/16 - Follow Up Care Current Providers and Referrals: Austyn Scott MD [Medical Doctor] - Dave Guardado MD [Medical Doctor] - 3-5 days NONE *PRIMARY CARE P,. [Primary Care Provider] -
[2016-10-29 11:37] VITALS: BP 106/66; PULSE 93; TEMP 97.5; O2SAT 93
[2016-10-29] MEDS: ENOXAPARIN 40 MG/0.4 ML SYR SC SCH (12:15)
[2016-10-29] MEDS: FAMOTIDINE 20 MG TAB PO SCH (12:16)
[2016-10-29] MEDS: SENNOSIDES/DOCUSATE SODIUM TAB PO SCH (12:16)
--- NOTE | 2016-10-30 14:22 | GDS ---
[f rep st] DISCHARGE SUMMARY DISCHARGE DIAGNOSES: 1. Pancreatic cancer. 2. Necrosis of the left lobe of the liver. PROCEDURES: Pylorus-sparing pancreaticoduodenectomy with cholecystectomy and portal vein venorrhaphy with Dr. Dave Guardado. INTRAOPERATIVE FINDINGS: Patient was found to have a hard tumor with a dilated pancreatic duct adherent to the portal vein. There was no sign of distal metastasis. CONSULTATIONS: 1. Raman Link MD, Anesthesiology. 2. Robson Navarro DO, glass washer. 3. Srinivas Chiu MD, Oncology. HOSPITAL COURSE: The patient is a 66-year-old male who was previously diagnosed with pancreatic cancer. He underwent a Whipple procedure as described above with Dr. Dave Guardado. There was some involvement of the portal vein, and he did suffer over 2 L of blood loss. He was transfused intraoperatively. He was transferred to recovery in stable condition. The patient's postoperative course was complicated by liver necrosis. His bilirubin was increasing, and so a CT scan was obtained revealing this infarction. [facility] was consulted and ultimately it was decided to keep the patient here at [facility] for continued observation. Zosyn was started, and his Adriel-Larkin drain was kept in place. Ultimately, his liver function tests began to improve. His diet was advanced without event. His bowel function returned. His epidural catheter was removed, and his pain was well controlled. Followup CT scan showed stability of his abdomen. He required bedside incisional debridement with scalpal down to fascia of the right portion of his total subcostal wound for superficial surgical site infection. Cultures were obtained and grew citrobacter with wide sensitivity. His wound was packed twice daily, and granulation began to form. DISCHARGE INSTRUCTIONS: The patient was discharged in stable condition to a subacute nursing facility. His drain was left in place. All of his lala have been removed prior to him leaving. His wound was packed with plain gauze, and there were plans for wound VAC placement upon arrival to the SNF. His Zosyn was discontinued, and he was changed to oral Augmentin. He was to avoid lifting anything over 10-15 pounds. He was given permission to shower. He will follow up with Surgery in the outpatient setting, initially every 3-4 days. He also has plans to follow up with his oncologist, Dr. Scott, whom he met in the outpatient setting. /[id number]/MODL MTDD
== END 2016-10-29 17:03 | DRG 405 ==
LOC: F2N 06:16 → F3E 06:16 → F2N 16:28 → F1N 10-21 16:29
PROVIDERS: ADMIT Surgery; ATTEND Surgery
PROC: 0FT40ZZ Resection of Gallbladder, Open Approach (ICD-10-PCS; principal; 2016-10-09 08:00)
PROC: 06Q80ZZ Repair Portal Vein, Open Approach (ICD-10-PCS; principal; 2016-10-09 08:00)
PROC: 30233N1 Transfusion of Nonautologous Red Blood Cells into Peripheral Vein, Percutaneous Approach (ICD-10-PCS; principal; 2016-10-09 08:00)
PROC: 0DB90ZZ Excision of Duodenum, Open Approach (ICD-10-PCS; principal; 2016-10-09 08:00)
PROC: 0FBG0ZZ Excision of Pancreas, Open Approach (ICD-10-PCS; principal; 2016-10-09 08:00)
PROC: 02HV33Z Insertion of Infusion Device into Superior Vena Cava, Percutaneous Approach (ICD-10-PCS; 2016-10-11)
PROC: 0JD80ZZ Extraction of Abdomen Subcutaneous Tissue and Fascia, Open Approach (ICD-10-PCS; 2016-10-22)
DX: C25.0 Malignant neoplasm of head of pancreas (principal); K76.3 Infarction of liver; J98.11 Atelectasis; D62 Acute posthemorrhagic anemia; T81.4XXA Infection following a procedure, initial encounter; B96.89 Other specified bacterial agents as the cause of diseases classified elsewhere; R73.9 Hyperglycemia, unspecified; I95.1 Orthostatic hypotension; F12.90 Cannabis use, unspecified, uncomplicated; F10.21 Alcohol dependence, in remission
CPT/HCPCS: 82947-QW; 92507-GN; 92523-GN; 92610-GN; 97110-GP; 97112-GP; 97116-GP; 97161-GP; 97166-GO; 97530-GO; 97530-GP; 97532-GN; 97535-GO; C1751; J0694; J1100; J1170; J1650; J1815; J2250; J2543; J2704; J2765; J2997; J3010; J3430; P9016; P9017; P9021; P9041; Q9967; Q9968

== ENCOUNTER 2016-11-10 11:06 | Inpatient (IN) | payer OTHER ==
--- NOTE | 2016-11-10 11:26 | EDPHY ---
H & P Time Seen by Provider: 11/10/16 11:26 HPI/ROS: CHIEF COMPLAINT: Fever and chills and rigors HISTORY OF PRESENT ILLNESS: This 66-year-old man had Whipple procedure for pancreatic cancer on 10/09/2016 complicated by liver necrosis which is treated with Zosyn and a drain. Discharge summary dated 10/30/2016 personally reviewed by myself. Over last 4 days he has had intermittent fevers and chills and rigors last episode last night which lasted about half an hour. It is associated with intermittent cough and increase in his drain output about 175 mL per day. Not associated with urinary symptoms or sore throat, or shortness of breath. REVIEW OF SYSTEMS: Eye: no change in vision, always has decreased right eye vision since he was sustained trauma when he was a child from a fishing weight ENT: no sore throat Cardiac: no chest pain or syncope Pulmonary: no cough or SOB Abdomen: HPI, no vomiting or diarrhea Musculoskeletal: no back pain Skin: no rash Neuro: no headache Constitutional: HPI : no urinary symptoms A comprehensive 10 point review of systems is otherwise negative aside from elements mentioned in the history of present illness. PAST MEDICAL HISTORY: Includes right eye surgery as a child with decreased vision, left shoulder surgery, bilateral ankle surgery, Whipple procedure for pancreatic cancer as mentioned above. Social history: Does not smoke cigarettes, General Appearance: Alert and conversant, cooperative. Eyes: No scleral icterus. ENT, Mouth: Normal mucous membranes. Respiratory: Normal respiratory effort, breath sounds equal, lungs are clear to auscultation. Cardiovascular: Regular rate and rhythm. Gastrointestinal: Abdomen is soft and non tender. Mildly distended. Wound VAC right upper quadrant. Drain in the left upper quadrant. Neurological: Alert and oriented x3. Normally conversant. Face symmetric, normal movement and sensation in all extremities. Skin: Warm and dry, no rashes. Musculoskeletal: Bilateral 2 to 3+ pedal edema. Psychiatric: Not agitated. Emergency Department course/MDM: I-STAT, blood cultures, chest CT urinalysis and CT abdomen and pelvis. Will discuss with his surgeon Dr. Dave Guardado. 1430: Chest x-ray and preliminary CT results discussed with the patient. Probable left lower lobe pneumonia on Xray. Elevated lactate. Broad-spectrum antibiotics include Invanz and Levaquin as the patient is recently been in the hospital last month. 1502: After discussion with Dr. Guardado CT report is reviewed from . Sushila will admit to the hospital for also possible liver abscess, Dr. Guardado requested Invanz and he will be the admitting physician. Antibiotics chosen for primary coverage of liver abscess or infection. Sepsis fluid resuscitation, but does not meet septic shock criteria. Smoking Status: Never smoked Constitutional: Initial Vital Signs Temperature (C) 36.3 C 11/10/16 11:11 Heart Rate 110 H 11/10/16 11:11 Respiratory Rate 18 11/10/16 11:11 Blood Pressure 119/81 H 11/10/16 11:11 O2 Sat (%) 94 11/10/16 11:11 O2 Delivery Mode Room Air O2 (L/minute) 2 Allergies/Adverse Reactions: No Known Allergies Allergy (Unverified 09/12/16 13:02) Home Medications: Medication Instructions Recorded Amoxicillin/Clavulanate Pot 875 mg PO BID #14 tab 10/29/16 [Augmentin 875 MG TAB (*)] Furosemide [Furosemide] 40 mg PO DAILY 11/10/16 Ibuprofen [Motrin (*)] 600 mg PO Q6H PRN 11/10/16 Potassium Chloride [Klor-Con M20] 20 meq PO DAILY 11/10/16 Medical Decision Making - Diagnostics Imaging: Chest x-ray viewed by myself shows left lower lung consolidation. CT report reviewed by Sushila at 3:02 p.m. shows probable liver abscesses. Bilateral pleural effusions no pneumonia. Differential Diagnosis: Differential considered including but not limited to UTI, pneumonia, intra- abdominal abscess, viral syndrome. Consult/Admit Bed Type: Lam Guardado [facility] Critical Care Time: Total critical care time 35 minutes, including initial and repeat evaluations, database review and orders, administration of fluids and multiple antibiotics, discussion with admitting surgeon Dr. Guardado, to stabilize the patient and prevent worsening of his condition. - Data Points Laboratory Results: Laboratory Results 11/10/16 11:50 11/10/16 11:50 11/10/16 11:50 WBC 20.98 H 10^3/uL (3.80-9.50) RBC 3.56 L 10^6/uL (4.40-6.38) Hgb 10.7 L g/dL (13.7-17.5) POC Hgb 11.6 L gm/dL (14.5-17.3) Hct 32.4 L % (40.0-51.0) POC Hct 34 L % (42.8-50.6) MCV 91.0 fL (81.5-99.8) MCH 30.1 pg (27.9-34.1) MCHC 33.0 g/dL (32.4-36.7) RDW 14.7 % (11.5-15.2) Plt Count 143 L 10^3/uL (150-400) MPV 9.2 fL (8.7-11.7) Neut % (Auto) 94.0 H % (39.3-74.2) Lymph % (Auto) 2.3 L % (15.0-45.0) [place] % (Auto) 2.8 L % (4.5-13.0) Eos % (Auto) 0.0 L % (0.6-7.6) Baso % (Auto) 0.3 % (0.3-1.7) Nucleat RBC Rel Count 0.0 % (0.0-0.2) Absolute Neuts (auto) 19.72 H 10^3/uL (1.70-6.50) Absolute Lymphs (auto) 0.49 L 10^3/uL (1.00-3.00) Absolute Monos (auto) 0.58 10^3/uL (0.30-0.80) Absolute Eos (auto) 0.00 L 10^3/uL (0.03-0.40) Absolute Basos (auto) 0.07 10^3/uL (0.02-0.10) Absolute Nucleated RBC 0.00 10^3/uL (0-0.01) Immature Gran % 0.6 % (0.0-1.1) Seg Neutrophils % 67 % Band Neutrophils % 29 % Lymphocytes % 3 % Monocytes % 1 % Immature Gran # 0.12 H 10^3/uL (0.00-0.10) Absolute Seg Neuts 14.06 H 10^/uL (1.70-6.50) Absolute Band Neuts 6.08 H 10^3/uL (0.00-0.70) Absolute Lymphocytes 0.63 L 10^3/uL (1.00-3.00) Absolute Monocytes 0.21 L 10^3/uL (0.30-0.80) Toxic Granulation PRESENT H Dohle Bodies PRESENT H Platelet Estimate DECREASED L (ADEQ) Oval Macrocytes 1+ H PT 19.7 H SEC (12.0-15.0) INR 1.67 H (0.83-1.16) APTT 33.7 SEC (23.0-38.0) VBG Lactic Acid 2.3 H mmol/L (0.7-2.1) POC Sodium 133 L mEq/L (134-144) Sodium 131 L mEq/L (134-144) POC Potassium 4.1 mEq/L (3.3-5.0) Potassium 4.3 mEq/L (3.5-5.2) POC Chloride 98 mEq/L (96-108) Chloride 102 mEq/L (97-110) Carbon Dioxide 23 mEq/l (22-31) Anion Gap 6 L mEq/L (8-16) POC BUN 17 mg/dL (7-23) BUN 19 mg/dL (7-23) Creatinine 0.7 mg/dL (0.7-1.3) POC Creatinine 0.7 L mg/dL (0.8-1.5) Estimated GFR > 60 Glucose 188 H mg/dL (70-100) POC Glucose 194 H mg/dL (70-100) Calcium 7.5 L mg/dL (8.5-10.4) Total Bilirubin 1.1 mg/dL (0.1-1.4) Medications Given: Discontinued Medications Cefepime HCl 2 gm/ Dextrose 100 mls @ 200 mls/hr IV EDNOW ONE PRN Reason: Protocol Stop: 11/10/16 15:04 Last Admin: 11/10/16 17:42 Dose: Not Given Ceftriaxone Sodium 2 gm/ (Dextrose) 50 mls @ 100 mls/hr IV EDNOW ONE PRN Reason: Protocol Stop: 11/10/16 15:04 Last Admin: 11/10/16 17:42 Dose: Not Given Levofloxacin/Dextrose (Levaquin 750 Mg (Premix)) 150 mls @ 100 mls/hr IV EDNOW ONE PRN Reason: Protocol Stop: 11/10/16 16:05 Last Admin: 11/10/16 15:01 Dose: 150 mls Ertapenem 1 gm/ Sodium (Chloride) 100 mls @ 200 mls/hr IV EDNOW ONE PRN Reason: Protocol Stop: 11/10/16 15:11 Last Admin: 11/10/16 15:33 Dose: 100 mls Sodium Chloride (Ns *For Sepsis Order Set Only*) 3,334 ml IV EDNOW ONE Stop: 11/10/16 14:36 Last Admin: 11/10/16 17:13 Dose: 3,000 ml Point of Care Test Results: 11/10/16 11:50 POC Sodium 133 L POC Potassium 4.1 POC Chloride 98 POC BUN 17 POC Creatinine 0.7 L POC Glucose 194 H Departure - Departure Disposition: [place] Inpatient Acute Clinical Impression: Liver abscess Condition: Fair
[2016-11-10 12:08] LABS: % IMMATURE GRANULYOCYTES 0.6 % (0.0-1.1); ABSOLUTE IMMATURE GRANULOCYTES 0.12 10^3/uL (0.00-0.10); ADD DIFF? NO; ADD MORPH? NO; ADD SCAN? YES; ATYPICAL LYMPHOCYTE FLAG 10 (0-99); FRAGMENT RBC FLAG 0 (0-99); HEMATOCRIT 32.4 % (40.0-51.0); HEMOGLOBIN 10.7 g/dL (13.7-17.5); LIPEMIA HEMOLYSIS FLAG 80 (0-99); MEAN CELL HEMOGLOBIN 30.1 pg (27.9-34.1); MEAN PLATELET VOLUME 9.2 fL (8.7-11.7); PLATELET CLUMPS FLAG 0 (0-99); PLATELET COUNT 143 10^3/uL (150-400); RED BLOOD CELL COUNT 3.56 10^6/uL (4.40-6.38); RED CELL DISTRIBUTION WIDTH 14.7 % (11.5-15.2)
[2016-11-10 12:15] LABS: LEFT SHIFT FLG 180 (0-99)
--- NOTE | 2016-11-10 12:16 | DX ---
Chest, PA and Lateral History: Sepsis, fever and chills, post Whipple procedure October 09 Comparison: October 20, 2016 Findings: There is increased left lower lobe consolidation and pleural effusion possibly representing postoperative atelectasis and effusion versus pneumonia. Consolidation at the medial right base is s table. Prominent gas-filled loops of bowel with air-fluid levels in the upper abdomen raise the possi bility of ileus. There is mottled and material and confluent gas beneath the anterior hemidiaphragm s een on the lateral view that is consistent with necrotic liver identified on the CT of October 25 17. Impression: 1. Left lower lobe consolidation with effusion, consistent with pneumonia. 2. Necrotic liver, similar to CT of October 25. Results discussed with Dr. Morel.
[2016-11-10 12:17] LABS: INR 1.67 (0.83-1.16); PROTIME(PATIENT) 19.7 SEC (12.0-15.0)
[2016-11-10 12:18] LABS: APTT 33.7 SEC (23.0-38.0)
[2016-11-10 12:21] LABS: ANION GAP 6 mEq/L (8-16); BILIRUBIN,TOTAL 1.1 mg/dL (0.1-1.4); CALCIUM 7.5 mg/dL (8.5-10.4); CARBON DIOXIDE 23 mEq/l (22-31); CHLORIDE 102 mEq/L (97-110); CREATININE 0.7 mg/dL (0.7-1.3); GLOMERULAR FILTRATION RATE > 60; GLUCOSE 188 mg/dL (70-100); POTASSIUM 4.3 mEq/L (3.5-5.2); SODIUM 131 mEq/L (134-144)
[2016-11-10 12:38] LABS: SCAN POSITIVE
[2016-11-10 12:44] LABS: MACROCYTES 1+; PLATELET ESTIMATE DECREASED (ADEQ); TOXIC GRANULATION PRESENT
[2016-11-10 13:03] LABS: LACGHOST ORDER
[2016-11-10] MEDS ORDERED: IOPAMIDOL (ISOVUE-300) 100 ML BTL IV ONE (13:25)
[2016-11-10] MEDS ORDERED: NS 1,000 ML BAG *FOR SEPSIS ORDER SET ONLY IV ONE (14:35)
[2016-11-10] MEDS ORDERED: cefTRIAXone 2 GM in D5W 50 ML IV ONE (14:35)
[2016-11-10] MEDS ORDERED: CEFEPIME HCL 2 GM in D5W 100 ML IV ONE (14:35)
[2016-11-10] MEDS ORDERED: ERTAPENEM 1 GM in NS 100 ML IV ONE (14:42)
--- NOTE | 2016-11-10 14:54 | CT ---
CT Abdomen and Pelvis With Contrast History: Chills x4 days, history of pancreatic cancer with Whipple procedure on October 09, 2016 foll owed by liver necrosis Technique: 64 slice volumetric data set helical CT obtained through the abdomen and pelvis during radhames us administration of 99 mL Isovue-300 nonionic contrast without complication. Images are reviewed on the computer workstation. Dose reduction techniques were utilized. Comparison: October 25, 2016 Findings: Bilateral pleural effusions have increased in size. Basilar consolidation with air bronchog lopez are stable and likely represents compression atelectasis. Heart size is normal without pericardi al effusion. Abdomen- There is little if any change in left hepatic lobe necrosis with subcapsular air. There is n o free air. A small bore drainage catheter remains in place with tip below the medial segment of the left lobe of the liver. There is no right hepatic lobe biliary dilatation. Two dominant, confluent, l ow density cystic lesions in the right lobe are again present, and demonstrate marginal rim enhanceme nt, consistent with abscesses. The largest lesion has persistent gas bubbles within it. The medial ar ea is slightly smaller There is a newly identified small 14 mm satellite lesion in the right hepatic lobe (image 25 series 2). There is persistent ascites that extends into the pelvis. The spleen remains normal in size and homogeneous. The kidneys are stable and normal, without obstruc tion. The adrenal glands and retroperitoneum remain normal. There is no adenopathy. Pelvis: Urinary bladder looks normal. There is no pelvic abscess. Impression: 1. Persistent right hepatic lobe liver abscesses, with findings suspicious for a new smal l abscess more posteriorly and higher in the right lobe. 2. Little if any change in left hepatic necrosis 3. Persistent ascites 4. Enlarging bilateral pleural effusions. General information for patients regarding this examination can be found at [email or web address]. If you have questions or comments about this report, please contact me at [phone] (hospital) or [phone] (cell).
[2016-11-10] MEDS ORDERED: IBUPROFEN 800 MG TAB PO PRN (15:38)
[2016-11-10] MEDS ORDERED: ONDANSETRON 4 MG/2 ML VIAL IVP PRN (16:20)
--- NOTE | 2016-11-10 17:02 | GHP ---
[f rep st] HISTORY AND PHYSICAL DATE OF ADMISSION: 11/10/2016 CHIEF COMPLAINT: Fever, rigors, cough. HISTORY OF PRESENT ILLNESS: The patient is a 66-year-old man who was recently diagnosed with pancreatic cancer. He underwent pancreatic duodenectomy with Dr. Guardado on 10/09/2016. His postoperative course was complicated by liver infarction of the left lobe. During his hospital course, he received IV Zosyn, was discharged on oral Augmentin. He has a BRAULIO drain in place. He developed an infection of his abdominal incision in the right upper quadrant. He has a wound VAC. This has been managed with wound VAC therapy with improvement. He was ultimately discharged to a senior care facility. Over the past 4 days, he has developed episodes of fever and chills. Last night, his family measured his temperature to be 103.2. This came down after a dose of Advil. This morning when Home Care evaluated him, his temp was 101. In addition, he notes increased drainage from the BRAULIO drain. He and his family report that the fluid has always been cloudy and kamara-colored with a foul odor. They deny any change in the character of the fluid. He denies any pain. He denies shortness of breath. He reports having a good appetite without nausea, vomiting, or distention. He reports having normal daily bowel habits without diarrhea and no difficulties with urination. ALLERGIES: No known drug allergies. PAST MEDICAL HISTORY: Pancreatic cancer, liver infarction, otherwise none. PAST SURGICAL HISTORY: Shoulder surgery, inguinal hernia repair, Whipple as above. MEDICATIONS: Advil, Lasix, potassium, Augmentin. 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 He is . He reports recreational marijuana use. He denies current tobacco or alcohol use. REVIEW OF SYSTEMS: A 10-point review of systems is negative aside from the HPI. PHYSICAL EXAMINATION: GENERAL: Pleasant, well-developed, well-nourished man in no acute distress. HEENT: Normocephalic, atraumatic. No hearing deficits. Pupils equal and round. No scleral icterus. Mucous membranes moist. NECK: Trachea midline. RESPIRATORY: Clear to auscultation bilaterally, but decreased at bilateral bases, left greater than right. HEART: Regular rate and rhythm. ABDOMEN: Hypoactive bowel sounds throughout. Soft, but distended. Nontender to deep palpation. Left upper quadrant BRAULIO drain with kamara cloudy fluid in the bulb. Right upper quadrant wound VAC intact. Remainder of surgical incision well healed. EXTREMITIES: No peripheral edema. PSYCHIATRIC : Mood and affect normal. LABORATORY DATA: White blood cell count 20.98, hemoglobin 10.7, hematocrit 32.4 , platelets 143. Lactate elevated at 2.3. Sodium 131, potassium 4.3, BUN 19, creatinine 0.7, glucose 188, calcium 7.5, total bilirubin 1.1. IMAGING: He had a chest x-ray in the emergency room which showed a left lower lobe consolidation consistent with pneumonia. In addition, he had an abdominal CT that showed right hepatic lobe liver abscesses, no change in the left hepatic necrosis, persistent ascites, and bilateral pleural effusions. IMPRESSION AND PLAN: The patient is a 66-year-old man with pancreatic cancer, status post Whipple, now admitted with leukocytosis, left lower lobe pneumonia, and right hepatic abscess. We will start him on IV Zosyn. Would appreciate hospitalist consultation for management of pneumonia. He may require percutaneous drainage of the abscess versus operative washout. I will discuss this with Dr. Robles. He may have a regular diet tonight, but will be n.p.o. for a procedure tomorrow if necessary. The wound VAC can stay in place until Saturday when it will be changed. We have also sent the BRAULIO fluid for culture. The patient and family had their questions answered to their satisfaction. /[id number]/MODL MTDD
[2016-11-10] MEDS: PIPERACILLIN/TAZO 3.375 GM/DEX 50 ML IV SCH ×2 (17:30→23:45)
[2016-11-10 17:43] LABS: COLOR YELLOW; LEUKOCYTE ESTERASE,URINE NEGATIVE (NEGATIVE); NITRITE,URINE NEGATIVE (NEGATIVE)
--- NOTE | 2016-11-10 20:11 | PDGENHP ---
History and Physical History and Physical: CONSULTATION HISTORY AND PHYSICAL CC: MS. BY DR. GISELLA MCKENNA TO EVALUATE AND ASSIST IN THE CARE OF THIS PATIENT WHO HAS ONGOING LIVER NECROSIS AND PROBABLE INTRA-ABDOMINAL INFECTION AFTER WHIPPLE SURGERY FOR PANCREATIC CANCER HISTORY: This patient was admitted here in September with a pancreatic mass and jaundice. Subsequently was referred by Dr. Scott to Dr. Mckenna who admitted the patient for a Whipple procedure in September. The Whipple was successful but complicated by some but he PAC infarcts with possible infection. The patient has a Adriel- Larkin drain still in place and has been receiving antibiotics fairly continuously since that time. He was eventually discharged home and was feeling quite well walking about eating well. However around 3 days ago he started having chills with shivering, feeling feverish and noticed increase in purulent appearing drainage from his Adriel-Larkin. He was referred back to the hospital for further evaluation with these findings. At this time the patient says he is feeling overall well but tired. He is not having chills records right now but did have some earlier today. None of this has caused him any abdominal pain, his bowels have been working well, his bladder has been working well. There is no nausea or vomiting. There has been no bleeding. Of note the patient does have also a significant area on the right lateral aspect of his subcostal incision line is open. This had had some infection and he has a wound VAC in place and this seems to have been doing well as far she is aware. 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 He had been receiving Augmentin at home PHYSICAL EXAMINATION: Vital Signs: tachycardic, otherwise normal vitals Examination: General: alert, oriented, good mentation, relaxed Skin: warm, dry, good color, no rash there is quite a bit of edema primarily of the feet and legs but also the scrotum and lower abdominal wall HEENT: normal Neck: no mass or jvd Resps: relaxed Lungs: greatly diminished breath sounds especially at both bases Heart: regular, no murmur Abdomen: fairly distended but soft and nontender. There are bowel sounds present. There is a Adriel-Larkin drain exiting from the left upper quadrant draining a yellowish greenish thick material. No blood and no fluid around the drain. There is a wound VAC on the lateral right and of the subcostal incision line. The wound VAC is in proper position and functioning properly, with minimal erythema around the edges. 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 In the chest there are significant bilateral pleural effusions with associated atelectasis but I do not think that he has actual pneumonia, as was interpreted by radiology based on the chest x-ray. 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, INSULIN-DEPENDENT PLANS: - BLOOD CULTURES have been drawn - patient has been started on zosyn which i think is appropriate antibiotic we can continue on - patient is currently receiving fluid resuscitation efforts for his acute sepsis and seems to be responding well, will need repeat lactate presently and to be followed closely - it sounds like therapy plans for the patient to return to the OR for exploration and management of necrosis and abscess in the liver bed ; I agree with this plan - follow sugars and treat as indicated - DVT prophylaxis after surgery - eventual chemotherapy and radiation I have reviewed the patient's case in detail with Harika Kwok of the surgery team I have reviewed the patient's past medical records as part of this assessment, including previous hospital records including physicians notes, laboratory data , imaging studies
[2016-11-10] MEDS: NS 1,000 ML IV SCH (20:30)
[2016-11-11] MEDS: PIPERACILLIN/TAZO 3.375 GM/DEX 50 ML IV SCH ×2 (05:27→12:01)
[2016-11-11 05:45] LABS: % IMMATURE GRANULYOCYTES 0.6 % (0.0-1.1); ABSOLUTE IMMATURE GRANULOCYTES 0.12 10^3/uL (0.00-0.10); ADD DIFF? NO; ADD MORPH? NO; ADD SCAN? NO; ATYPICAL LYMPHOCYTE FLAG 0 (0-99); FRAGMENT RBC FLAG 0 (0-99); HEMATOCRIT 32.6 % (40.0-51.0); HEMOGLOBIN 10.7 g/dL (13.7-17.5); LEFT SHIFT FLG 70 (0-99); LIPEMIA HEMOLYSIS FLAG 80 (0-99); MEAN CELL HEMOGLOBIN 29.8 pg (27.9-34.1); MEAN CELL HEMOGLOBIN CONCENTR. 32.8 g/dL (32.4-36.7); MEAN CELL VOLUME 90.8 fL (81.5-99.8); MEAN PLATELET VOLUME 9.6 fL (8.7-11.7); PLATELET CLUMPS FLAG 0 (0-99); PLATELET COUNT 117 10^3/uL (150-400); RED BLOOD CELL COUNT 3.59 10^6/uL (4.40-6.38); RED CELL DISTRIBUTION WIDTH 14.6 % (11.5-15.2)
[2016-11-11 06:37] LABS: ALANINE AMINOTRANSFERASE 54 IU/L (21-72); ALBUMIN 1.6 g/dL (3.5-5.0); ALKALINE PHOSPHATASE 353 IU/L (38-126); ANION GAP 5 mEq/L (8-16); ASPARTATE AMINOTRANSFERASE 56 IU/L (17-59); CALCIUM 7.3 mg/dL (8.5-10.4); CARBON DIOXIDE 23 mEq/l (22-31); CHLORIDE 107 mEq/L (97-110); CREATININE 0.7 mg/dL (0.7-1.3); GLOMERULAR FILTRATION RATE > 60; GLUCOSE 127 mg/dL (70-100); POTASSIUM 4.1 mEq/L (3.5-5.2); SODIUM 135 mEq/L (134-144); TOTAL PROTEIN 4.5 g/dL (6.3-8.2)
[2016-11-11] MEDS: NS 1,000 ML IV SCH (07:00)
[2016-11-11] MEDS: INSULIN LISPRO 100 UNIT/ML SC SCH ×4 (08:57→18:07)
[2016-11-11] MEDS ORDERED: ERTAPENEM 1 GM in NS 100 ML IV SCH (09:00)
[2016-11-11] MEDS: FUROSEMIDE 40 MG TAB PO SCH (09:29)
[2016-11-11] MEDS: POTASSIUM CL 20 MEQ TAB PO SCH (09:29)
--- NOTE | 2016-11-11 10:37 | SOAPPROG ---
SOAP Progress Note Assessment/Plan: Assessment: 66yo M s/p pancreaticoduodenectomy for pancreatic cancer complicated by hepatic infarction. Admitted with fevers, rigors and leukocytosis CXR with atelectasis + effusions vs. PNA. No pneumonia per Dr. Brownlee CT shows R hepatic abscess within area of healthy liver. Hesitant to perc drain or OR washout due to risk of damage to remaining healthy liver. Will observe for now on IV antibiotics. IV Zosyn Pain controlled Wound vac - will change Saturday Regular diet today - if adequate PO intake can buff cap IV IS Appreciate hospitalists Seen with Dr. Robles S: Feeling well. No abdominal pain, nausea, vomiting. Bowel movements this morning and passing gas. No shortness of breath O: sitting upright in chair, comfortable, no acute distress No increased work of breathing Hypoactive bowel sounds throughout, soft but distended. Wound VAC intact to section. BRAULIO with yellowish drain fluid. 11/11/16 10:38 Objective: Vital Signs Temp Pulse Resp BP Pulse Ox 36.5 C 83 16 105/69 99 11/11/16 08:00 11/11/16 08:00 11/11/16 08:00 11/11/16 08:00 11/11/16 08:00 Laboratory Results 11/11/16 05:35 11/11/16 05:35 11/10/16 11/11/16 11/12/16 05:59 05:59 05:59 Intake Total 3935 Output Total 1200 Balance 2735 PT 19.7 SEC (12.0-15.0) H 11/10/16 11:50 INR 1.67 (0.83-1.16) H 11/10/16 11:50 ICD10 Worksheet Patient Problems: Problems Problem Status Diagnosed Liver abscess Acute Biliary obstruction due to cancer Acute bi Acute
--- NOTE | 2016-11-11 10:51 | WOCRNPDOC ---
WOCRN Advanced Assessment Note - Skin Integrity Problem, Advanced Assess Right Abdomen Surgical Wound/Incision Dressing Type: Wound Vac Dressing Description: Intact Skin Integrity Problem Comment: Received wound care consult regarding patient's home vac, with which he was admitted on 11/10 for an existing R abdominal surgical wound. Per facility protocol, patient was switched over to [facility] vac. Existing dressing is presently compressed and intact. Tubing from existing dressing was attached to new vac canister tubing, and NPWT was initiated at 125mmHg low, continuous suction. No leaks were detected. Patient is scheduled to have a dressing change tomorrow 11/12. Wound care will contact managing surgeon to determine if this change will occur in OR or at the bedside. academic services professionalSONI Fowler present and assisting. I spoke with Lani at [facility] this morning and had his home wound vac charges placed on hold beginning on his date of admission (11/10) so that he is not charged for its use while he is here. Upon discharge, he can call [facility] and notify them to resume home vac usage.
--- NOTE | 2016-11-11 12:13 | HOSPPROG ---
Hospitalist Progress Note Assessment/Plan: Patient was recently admitted here in September w pancreatic mass and jaundice. Pt is s/p Whipple in September. On this admission he was admitted with fever, leukocytosis and rigors. He has + blood cx/ have asked ID to get involved in his care. Today is my first encounter w the patient / chart reviewed. #. Gram neg rods/Bacteremia/Sepsis * leukocytosis * iv Zosyn * lactate elevated #. Pancreatic CA * s/p pancreaticoduodenectomy complicated by hepatic infarction. * CT shows R hepatic abscess within area of healthy liver. * Surgical team concerned about doing a perc drain/ increase risk to liver #. Pitting edema bilateral lower ext/ ascites * stop iv fluids * give an extra dose of iv lasix * daily weights #. Bilateral pleural effusion w atelectasis * crackles * dc fluids #. 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 Hx of alcohol use * no concerns #. anemia * due to ongoing illness * will follow #. Plan: ID to get involved with Gurvinder's care/ appreciate Dr Robison. Will give an extra dose of lasix, recheck labs in a.m./daily weights Subjective: Gurvinder has no c/o pain/ says he is overall feeling fine. Objective: Vital Signs Temp Pulse Resp BP Pulse Ox 36.4 C 81 14 104/64 97 11/11/16 11:54 11/11/16 11:54 11/11/16 11:54 11/11/16 11:54 11/11/16 11:54 Microbiology 11/10/16 17:15 Gram Stain - Final Peritoneal Fluid - Aspirate Laboratory Results 11/11/16 05:35 11/11/16 05:35 11/10/16 11/11/16 11/12/16 05:59 05:59 05:59 Intake Total 3935 Output Total 1200 Balance 2735 PT 19.7 SEC (12.0-15.0) H 11/10/16 11:50 INR 1.67 (0.83-1.16) H 11/10/16 11:50 - Physical Exam Constitutional: not in pain, chronically ill appearing Eyes: PERRL Ears, Nose, Mouth, Throat: hearing normal Cardiovascular: regular rate and rhythym, edema (bilateral lower extremity edema up into abdomen) Respiratory: no respiratory distress, reduced air movement, inspiratory crackles (bases) Gastrointestinal: ascites, other (rena alston drain on left side of abdomen with greenish thick drainage/ wound vac is in place and draining.) Skin: warm, No normal color (pale) Musculoskeletal: no muscle tenderness Neurologic: AAOx3 Psychiatric: interacting appropriately, not anxious ICD10 Worksheet Patient Problems: Problems Problem Status Diagnosed Liver abscess Acute Biliary obstruction due to cancer Acute bi Acute
[2016-11-11] MEDS ORDERED: FUROSEMIDE 20 MG/2 ML VIAL IVP ONE (12:28)
--- NOTE | 2016-11-11 15:46 | GCON ---
[f rep st] CONSULTATION INFECTIOUS DISEASE CONSULTATION DATE OF CONSULTATION: 11/11/2016 REFERRING PHYSICIAN: Ginger Kenyon NP REASON FOR CONSULTATION: Bacteremia, liver abscess, for further evaluation and management. CHIEF COMPLAINT: Rigors and chills with purulent drainage out of the BRAULIO drain. HISTORY OF PRESENT ILLNESS: This is a 66-year-old male with a past medical history significant for recent diagnosis of pancreatic cancer, status post Whipple procedure on October 09, 2016. Immediate postop was complicated, but through the course he developed liver necrosis. He has had a BRAULIO drain on the left abdomen, which apparently was draining out some yellowish-greenish, moderate thickness fluid. He was on Zosyn from October 18 through the , and then transitioned over to Augmentin at the time of discharge, to be taken for approximately about 20 days. Portions of his abdominal surgery site did break down during his hospital stay as well, and wound VAC was placed on that. After he went home, the drainage from the BRAULIO drain actually had reduced significantly to the point where it was not draining anymore. He had seen Dr. Guardado in the office on the 02 of November, and the decision was to keep the drain in for at least 1 more week. Midweek last week, around the or 07 of November, he started to have rigors intermittently throughout the day, and there was now new drainage coming out of the BRAULIO drain like previously. This drainage appeared much more in in comparison. He was admitted yesterday, found to have a white blood cell count 28.9, with a left shift. He was afebrile, but tachycardiac, and blood cultures x2 sets were drawn, and 3/4 bottles are growing out a gram-negative derek from the enterobacteriaceae group. He also had a culture done from the BRAULIO drain which was showing 1+ polys, 2+ gram-negative rods, and the official culture is pending as well. He was placed back on Zosyn last night, and today his white blood cell count has continued to remain high at 20.8, with an ongoing left shift. The chills have improved so far today. He had a CT scan of the abdomen yesterday, which showed normal, well-defined, persistent right hepatic abscess. I reviewed the images with Radiology today. The size is about 5 cm, and then a much smaller size abscess is also noted as well, possibly about 1.4 cm. Infectious Disease is now consulted for further evaluation and opinion regarding the above. REVIEW OF SYSTEMS: GENERAL: Denies any headaches. EYES: He has some change in vision where he has near vision slightly changed where he has to wear glasses for when reading the computer or reading a newspaper, which previously he did not have to. Denies any sore throat, difficulty swallowing, ear pain, or ear drainage. CARDIOVASCULAR: Denies any chest pain. RESPIRATORY: Denies any shortness of breath. Occasionally has a cough with sputum production. ABDOMEN: He complains of it being distended. He denies nausea or vomiting. He did have some loose stools while he was on Augmentin, however, today he has had 2 formed stools. : Denies dysuria. BACK: Denies any back pain. Overall abdominal discomfort is mostly through the distention but no acute pain. EXTREMITIES: Complains of lower extremity edema. MUSCULOSKELETAL: Denies any joint pains. SKIN: Denies any rashes. Rest of the 10-point review of systems essentially negative except for above. PAST MEDICAL HISTORY: Significant for recent diagnosis of pancreatic cancer, status post Whipple's. PAST SURGICAL HISTORY: Significant for shoulder surgery and ankle surgery. ALLERGIES: No known drug allergies. SOCIAL HISTORY: He denies smoking. He used to formerly drink alcohol, but has quit since August. He lives with his . 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 FAMILY HISTORY: Significant for his brother having prostate cancer and a sister having uterine cancer. PHYSICAL EXAMINATION: VITAL SIGNS: Temperature is 36.4, pulse is 81, respiratory rate 14, blood pressure 104/64. Saturations are 97% on 4 L O2 via nasal cannula. GENERAL: Patient is sitting up in chair, in no acute respiratory distress. Awake, alert, and oriented. HEAD: Normocephalic, atraumatic. EYES: No conjunctival injection. Oropharynx is clear. There is no posterior pharyngeal erythema or thrush. CARDIOVASCULAR: S1, S2. Regular rate and rhythm. No murmurs appreciated. RESPIRATORY: Mild coarse breath sounds at the bases. ABDOMEN: Distended. Positive bowel sounds appreciated. Surgical incision site is mostly well-healed except for the right portion of it where there is a wound VAC in place. He has a BRAULIO drain in the left abdomen which has sort of yellowish-greenish, thin material noted. LOWER EXTREMITIES: He has pitting edema from the thigh downward. MUSCULOSKELETAL: No obvious joint effusions. SKIN: No obvious other rashes. Wound VAC as stated above. LABS: White blood cell count is 20.8, hemoglobin 10.7, platelets are 117, neutrophil 88%. INR 1.6. Venous lactic acid 2.3 from yesterday. Sodium 135, potassium 4.1, chloride 107, bicarb 23, BUN of 16, creatinine 0.7, AST 56, ALT 54, alkaline phosphatase 353, total bilirubin 1.0. Blood cultures x2 sets, 3/4 bottles, with gram-negative rods of the enterobacteriaceae group. Peritoneal fluid culture from the BRAULIO drain showing gram-negative rods, and Gram stain with cultures pending. IMAGING: Reviewed by myself with Radiology today. ASSESSMENT: 1. Gram-negative derek sepsis with bacteremia. 2. Persistent right hepatic abscesses. 3. Liver necrosis. PLAN: The patient is currently on Zosyn therapy for the above. Patient was previously on Zosyn during his recent hospitalization and transitioned to oral Augmentin. Would recommend changing to meropenem for a broader coverage. Discussed with Radiology his imaging, and the largest abscess there is about 5 cm, which appears could be safely have a pigtail catheter placed by IR. We will make the patient n.p.o. tonight and consult IR for the morning to reassess the safety of this, and if so, have them place a pigtail catheter to help facilitate drainage and management. Care was coordinated with the hospitalist team. I also discussed these recommendations with the surgical team as well. Plan of care was discussed with the patient and the family at the bedside. Will repeat blood culture on SaturdayNovember 13, after he has received sufficient dosing of Merem. Thank you very much for allowing us the opportunity to care for your patient in consultation. /[id number]/MODL MTDD
[2016-11-11] MEDS: MEROPENEM 1 GM in NS 100 ML IV SCH ×2 (16:02→22:33)
[2016-11-12] MEDS: MEROPENEM 1 GM in NS 100 ML IV SCH ×3 (05:52→22:12)
[2016-11-12 06:24] LABS: % IMMATURE GRANULYOCYTES 1.5 % (0.0-1.1); ADD DIFF? NO; ADD MORPH? NO; ADD SCAN? NO; ATYPICAL LYMPHOCYTE FLAG 60 (0-99); FRAGMENT RBC FLAG 0 (0-99); HEMATOCRIT 32.7 % (40.0-51.0); HEMOGLOBIN 10.9 g/dL (13.7-17.5); LEFT SHIFT FLG 30 (0-99); LIPEMIA HEMOLYSIS FLAG 80 (0-99); MEAN CELL HEMOGLOBIN 29.9 pg (27.9-34.1); MEAN CELL HEMOGLOBIN CONCENTR. 33.3 g/dL (32.4-36.7); MEAN CELL VOLUME 89.8 fL (81.5-99.8); MEAN PLATELET VOLUME 9.7 fL (8.7-11.7); PLATELET CLUMPS FLAG 0 (0-99); PLATELET COUNT 157 10^3/uL (150-400); RED BLOOD CELL COUNT 3.64 10^6/uL (4.40-6.38); RED CELL DISTRIBUTION WIDTH 14.6 % (11.5-15.2)
[2016-11-12 06:39] LABS: ANION GAP 6 mEq/L (8-16); CALCIUM 7.6 mg/dL (8.5-10.4); CARBON DIOXIDE 23 mEq/l (22-31); CHLORIDE 105 mEq/L (97-110); CREATININE 0.7 mg/dL (0.7-1.3); GLOMERULAR FILTRATION RATE > 60; GLUCOSE 114 mg/dL (70-100); POTASSIUM 3.9 mEq/L (3.5-5.2); SODIUM 134 mEq/L (134-144)
[2016-11-12] MEDS: INSULIN LISPRO 100 UNIT/ML SC SCH ×3 (08:45→17:54)
[2016-11-12] MEDS: POTASSIUM CL 20 MEQ TAB PO SCH (10:08)
[2016-11-12] MEDS: FUROSEMIDE 40 MG TAB PO SCH (10:08)
[2016-11-12] MEDS ORDERED: FUROSEMIDE 20 MG/2 ML VIAL IVP ONE (10:18)
--- NOTE | 2016-11-12 10:27 | HOSPPROG ---
Hospitalist Progress Note Assessment/Plan: Patient was recently admitted here in September w pancreatic mass and jaundice. Pt is s/p Whipple in September. On this admission he was admitted with fever, leukocytosis and rigors. #. Gram neg rods/Bacteremia/Sepsis * leukocytosis * antibiotics changed to Meropenem * lactate elevated #. persistent hepatic abscess * likely drainage in IR today #. Pancreatic CA * s/p pancreaticoduodenectomy complicated by hepatic infarction. * CT shows R hepatic abscess within area of healthy liver. * Surgical team concerned about doing a perc drain/ increase risk to liver #. Pitting edema bilateral lower ext/ ascites * iv lasix today/ in addition to his oral dose * daily weights * per , his weight is up >20 -40 lbs #. Bilateral pleural effusion w atelectasis #. 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 Hx of alcohol use * no concerns #. anemia * due to ongoing illness * will follow #. Plan: Likely drainage of abscess in IR today, repeat iv lasix and follow his response Subjective: Gurvinder feels well/ has no complaints. Objective: Vital Signs Temp Pulse Resp BP Pulse Ox 36.4 C 84 18 122/76 H 96 11/12/16 07:49 11/12/16 07:49 11/12/16 07:49 11/12/16 07:49 11/12/16 07:49 Microbiology 11/10/16 17:15 Gram Stain - Final Peritoneal Fluid - Aspirate Laboratory Results 11/12/16 05:50 11/12/16 05:50 11/11/16 11/12/16 11/13/16 05:59 05:59 05:59 Intake Total 3935 500 Output Total 1200 570 Balance 2735 -70 PT 19.7 SEC (12.0-15.0) H 11/10/16 11:50 INR 1.67 (0.83-1.16) H 11/10/16 11:50 - Physical Exam Constitutional: not in pain, chronically ill appearing Eyes: PERRL Ears, Nose, Mouth, Throat: hearing normal Cardiovascular: regular rate and rhythym, edema (pitting edema bilterally in lower ext) Respiratory: no respiratory distress, reduced air movement Gastrointestinal: normoactive bowel sounds, ascites, other (large and round) Skin: warm Musculoskeletal: full muscle strength Neurologic: AAOx3 Psychiatric: interacting appropriately, not anxious ICD10 Worksheet Patient Problems: Problems Problem Status Diagnosed Liver abscess Acute Biliary obstruction due to cancer Acute bi Acute
--- NOTE | 2016-11-12 10:50 | PCMIDPN ---
Assessment/Plan: Assessment/Plan: 1. Citrobacter koseri sepsis with bacteremia and persistent right hepatic abscess: - Wbc still at 20. -Blood cx and previous JOSSY drain cx with Citrobacter. - Sensitivities back and reviewed: intermediate to zosyn, resistant to augmentin /unasyn. sensitive to Merem. - Placed on Merem yesterday. -Reviewed CT abd yesterday with radiology and spoke with Dr. Haque this morning regarding Ct -guided pigtail catheter placement. Pt has been NPO since midnight -Follow up blood cx ordered for tomorrow -REviewed lab and cultures with patient and . Discussed plan of care for today. -care coordinated with hospitalist team - Surgery team following and care coordinated with them yesterday. 2. Hx Pancreatic Ca, s/p Whipples (10/09/16) - Post op course complicated by left hepatic necrosis. Current JOSSY drain appears to be within this area and draining out thin purulent looking material -Wound vac in place on medial aspect of surgical incision site. Will coordinate with wound care to see when wound vac will be changed today. MEds Merem 1g q8- 11/11/16.--#2 Subjective: Afebrile. Feels better today. Still with abdominal distention and LE edema. Jossy drain still draining out thin purulent looking material. wound vac in place. Denies sob. working with IS> Objective: Vital Signs Temp Pulse Resp BP Pulse Ox 36.4 C 84 18 122/76 H 96 11/12/16 07:49 11/12/16 07:49 11/12/16 07:49 11/12/16 07:49 11/12/16 07:49 Microbiology 11/10/16 17:15 Gram Stain - Final Peritoneal Fluid - Aspirate Laboratory Results 11/12/16 05:50 11/12/16 05:50 11/11/16 11/12/16 11/13/16 05:59 05:59 05:59 Intake Total 3935 500 Output Total 1200 570 Balance 2735 -70 - Physical Exam General Appearance: alert, no apparent distress Respiratory: lungs clear Cardiac/Chest: regular rate, rhythm Extremities: swelling (b/l LE edema feet to thighs. ) Abdomen: normal bowel sounds, non-tender, soft, distended, other (jossy drain as described above. wound vac noted. ) Skin: No erythema - Time Spent With Patient Time Spent with Patient: greater than 35 minutes Time Spent with Patient: Greater than 35 minutes spent on this patients care, greater than 50% of time spent counseling, educating, and coordinating care regarding the above mentioned plan. ICD10 Worksheet Patient Problems: Problems Problem Status Diagnosed Liver abscess Acute Biliary obstruction due to cancer Acute bi Acute
[2016-11-12 11:58] LABS: APTT 32.6 SEC (23.0-38.0); INR 1.58 (0.83-1.16); PROTIME(PATIENT) 18.9 SEC (12.0-15.0)
[2016-11-12] MEDS ORDERED: NA BICARBONATE 50 MEQ/50 ML VIAL ONE (12:54)
--- NOTE | 2016-11-12 13:02 | SOAPPROG ---
SOAP Progress Note Assessment/Plan: Assessment: 66yo M s/p pancreaticoduodenectomy for pancreatic cancer complicated by hepatic infarction. Admitted with fevers, rigors and leukocytosis. To IR today for drain placement. Meropenem. Wound vac - change today. S: Feeling well. No abdominal pain, nausea, vomiting. Bowel movements this morning and passing gas. No shortness of breath O: gen: sitting upright in chair, comfortable, no acute distress heent: no scleral icterus pulm: no wob abd: distended. inc clean, no erythema. vac to suction. drain scant yellow/ whitish fluid. 11/12/16 13:03 Objective: Vital Signs Temp Pulse Resp BP Pulse Ox 36.4 C 88 16 114/69 97 11/12/16 11:37 11/12/16 11:37 11/12/16 11:37 11/12/16 11:37 11/12/16 11:37 Microbiology 11/10/16 17:15 Gram Stain - Final Peritoneal Fluid - Aspirate Laboratory Results 11/12/16 05:50 11/12/16 05:50 11/11/16 11/12/16 11/13/16 05:59 05:59 05:59 Intake Total 3935 500 Output Total 1200 570 Balance 2735 -70 PT 18.9 SEC (12.0-15.0) H 11/12/16 11:09 INR 1.58 (0.83-1.16) H 11/12/16 11:09 ICD10 Worksheet Patient Problems: Problems Problem Status Diagnosed Liver abscess Acute Biliary obstruction due to cancer Acute bi Acute
[2016-11-12] MEDS ORDERED: FLUMAZENIL 0.5 MG/5 ML MDV IVP ONE (13:51)
[2016-11-12] MEDS ORDERED: NALOXONE HCL 0.4 MG/ML INJ ONE (13:52)
[2016-11-12] MEDS ORDERED: fentaNYL 100 MCG/2 ML INJ ONE (13:52)
[2016-11-12] MEDS ORDERED: MIDAZOLAM 2 MG/2 ML VIAL ONE (13:52)
[2016-11-12] MEDS ORDERED: oxyCODONE IR 5 MG TAB PO PRN (14:46)
--- NOTE | 2016-11-12 15:01 | US ---
Ultrasound-Guided Liver Abscess Drainage History: Abscess collection right lobe liver inferiorly. Crosscutting Measure #226: Current tobacco user: no. Technique: Following informed consent, the liver abscess collection was localized with ultrasound. T he skin was then prepped and draped in sterile fashion. Conscious sedation was utilized for the study with a total of 1.0 mg of Versed and 50 mcg of fentanyl administered for a time period of 25 minutes (6909-4540 hours). Following local anesthesia with 1% lidocaine, a 8 gauge drainage catheter was di rected with ultrasound guidance utilizing Seldinger technique into the abscess collection right lobe liver. 15 mL of thick yellowish cloudy purulent fluid was aspirated and sent to the lab for culture. The abscess collection was then irrigated until clear utilizing 10 mL aliquots of normal saline. The 8-Yakut drainage catheter was then affixed to the skin surface utilizing StatLock device. The draina ge catheter was then attached to a bulb drainage device. Impression: Successful ultrasound-guided drainage of abscess collection right lobe liver posterior se gment inferiorly. 15 mL of thick yellowish cloudy fluid was sent to the laboratory for culture.
--- NOTE | 2016-11-12 16:16 | WOCRNPDOC ---
WOCRN Advanced Assessment Note - Skin Integrity Problem, Advanced Assess Right Abdomen Surgical Wound/Incision Dressing Type: Black Vac Foam (x1), Wound Vac Dressing Description: Clean/Dry, Intact Exudate Amount: Scant Exudate Characteristic(s): Serosanguinous Integumentary Issue Intervention: Dressing Changed Sakina Wound Swelling: None Wound Bed Color: Red Wound Bed Constitution: Granulation Tissue, Smooth Tissue (5%), Undermining (11- 1 oclock 3.1 cm (depth is at 1 oclock, 11-1 is about 1 cm)) Wound Edges: Epithelizing, Attached Site Measurement - Head-to-Toe Length X Width X Depth (cm): 4.7x5.8x0.5 from 2- 7 oclock wound measures 12.1 cm. Skin Integrity Problem Comment: Removed vac drape with adhesive releaser. Flushed wound with ns. Skin prep sakina wound and drape. Small one piece of white foam cut in 1/2 depth-marti and placed lightly in 1 oclock tunnel/undermining. Remainder of wound covered with medium black foam. Vac restarted at - 125 mm Hg continous suction with no leaks. All patient's and spouses questions answered. Reported to Dr. Robison.
[2016-11-13 06:24] LABS: ANION GAP 5 mEq/L (8-16); CALCIUM 7.4 mg/dL (8.5-10.4); CARBON DIOXIDE 27 mEq/l (22-31); CHLORIDE 105 mEq/L (97-110); CREATININE 0.7 mg/dL (0.7-1.3); GLOMERULAR FILTRATION RATE > 60; GLUCOSE 119 mg/dL (70-100); POTASSIUM 3.9 mEq/L (3.5-5.2); SODIUM 137 mEq/L (134-144)
[2016-11-13 06:56] LABS: ADD DIFF? YES; ADD MORPH? NO; ADD SCAN? NO; ATYPICAL LYMPHOCYTE FLAG 90 (0-99); FRAGMENT RBC FLAG 10 (0-99); HEMATOCRIT 34.2 % (40.0-51.0); HEMOGLOBIN 11.3 g/dL (13.7-17.5); LEFT SHIFT FLG 40 (0-99); LIPEMIA HEMOLYSIS FLAG 80 (0-99); MEAN CELL HEMOGLOBIN 29.8 pg (27.9-34.1); MEAN CELL VOLUME 90.2 fL (81.5-99.8); MEAN PLATELET VOLUME 9.7 fL (8.7-11.7); PLATELET CLUMPS FLAG 0 (0-99); PLATELET COUNT 220 10^3/uL (150-400); RED BLOOD CELL COUNT 3.79 10^6/uL (4.40-6.38); RED CELL DISTRIBUTION WIDTH 14.8 % (11.5-15.2)
[2016-11-13] MEDS: MEROPENEM 1 GM in NS 100 ML IV SCH ×3 (07:13→21:31)
[2016-11-13 07:24] LABS: MACROCYTES 1+; PLATELET ESTIMATE ADEQUATE (ADEQ); POLYCHROMASIA 1+
[2016-11-13] MEDS: INSULIN LISPRO 100 UNIT/ML SC SCH ×3 (07:38→17:46)
[2016-11-13] MEDS: FUROSEMIDE 40 MG TAB PO SCH (08:44)
[2016-11-13] MEDS: POTASSIUM CL 20 MEQ TAB PO SCH (08:44)
--- NOTE | 2016-11-13 08:58 | PCMIDPN ---
Assessment/Plan: Assessment/Plan: 1. Citrobacter koseri sepsis with bacteremia and persistent right hepatic abscess: - Wbc still at 20. -Blood cx and previous JOSSY drain cx with Citrobacter. New drainage cx pending - Sensitivities back and reviewed: intermediate to zosyn, resistant to augmentin /unasyn. sensitive to Merem. - Placed on Merem yesterday. -Reviewed CT abd yesterday with radiology and spoke with Dr. Haque this morning regarding Ct -guided pigtail catheter placement. Pt has been NPO since midnight -Follow up blood cx ordered for tomorrow -REviewed lab and cultures with patient and . Discussed plan of care for today. -care coordinated with hospitalist team - Surgery team following and care coordinated with them yesterday. 2. Hx Pancreatic Ca, s/p Whipples (10/09/16) - Post op course complicated by left hepatic necrosis. Current JOSSY drain appears to be within this area and draining out thin purulent looking material -Wound vac in place on medial aspect of surgical incision site. Will coordinate with wound care to see when wound vac will be changed today. MEds Merem 1g q8- 11/11/16.--#2 Subjective: afebrile. feels better each day. no further chills. abd still distended but not tender. two jossy drain in place. new drain not draining much and is less purulent looking comparatively. denies sob. LE swelling. Objective: Vital Signs Temp Pulse Resp BP Pulse Ox 36.8 C 85 18 121/75 H 96 11/13/16 07:25 11/13/16 07:25 11/13/16 07:25 11/13/16 07:25 11/13/16 07:25 Microbiology 11/12/16 14:30 Gram Stain - Final Liver - Aspirate 11/10/16 17:15 Gram Stain - Final Peritoneal Fluid - Aspirate Body Fluid Culture - Final Citrobacter Koseri Laboratory Results 11/13/16 05:25 11/13/16 05:25 11/12/16 11/13/16 11/14/16 05:59 05:59 05:59 Intake Total 500 113 Output Total 570 1280 Balance -70 -1167 - Physical Exam General Appearance: alert, no apparent distress Respiratory: lungs clear Cardiac/Chest: regular rate, rhythm Extremities: swelling Abdomen: normal bowel sounds, soft, distended, other (jossy drains: one with thin purulent looking material, second one less purulent, minimal drainage. wound vac.) Skin: No erythema ICD10 Worksheet Patient Problems: Problems Problem Status Onset Liver abscess Acute Biliary obstruction due to cancer Acute bi Acute
[2016-11-13] MEDS ORDERED: FUROSEMIDE 40 MG/4 ML VIAL IVP ONE (10:38)
[2016-11-13] MEDS ORDERED: POTASSIUM CL 10 MEQ TAB PO ONE (10:39)
--- NOTE | 2016-11-13 10:40 | SOAPPROG ---
SOAP Progress Note Assessment/Plan: Assessment: 66yo M s/p pancreaticoduodenectomy for pancreatic cancer complicated by hepatic infarction. Admitted with fevers, rigors and leukocytosis. Appreciate ID and IM input and care. IR drain placed yesterday. Fluid sent for culture. Scant drainage today--serous fluid in tubing, none in bulb. IV Meropenem. Wound vac - changed yesterday. Change again tomorrow. Leukocytosis still significant. Continue hospital stay. S: Feeling well. Very hungry--eating breakfast. No abdominal pain, nausea, vomiting. O: gen: sitting upright in chair, comfortable, no acute distress heent: no scleral icterus pulm: no wob abd: distended. inc clean, no erythema. vac to suction. drain scant serous. 11/13/16 10:37 Objective: Vital Signs Temp Pulse Resp BP Pulse Ox 36.8 C 85 18 121/75 H 96 11/13/16 07:25 11/13/16 07:25 11/13/16 07:25 11/13/16 07:25 11/13/16 07:25 Microbiology 11/12/16 14:30 Gram Stain - Final Liver - Aspirate 11/10/16 17:15 Gram Stain - Final Peritoneal Fluid - Aspirate Body Fluid Culture - Final Citrobacter Koseri Laboratory Results 11/13/16 05:25 11/13/16 05:25 11/12/16 11/13/16 11/14/16 05:59 05:59 05:59 Intake Total 500 113 Output Total 570 1280 Balance -70 -1167 PT 18.9 SEC (12.0-15.0) H 11/12/16 11:09 INR 1.58 (0.83-1.16) H 11/12/16 11:09 ICD10 Worksheet Patient Problems: Problems Problem Status Onset Liver abscess Acute Biliary obstruction due to cancer Acute bi Acute
--- NOTE | 2016-11-13 10:42 | HOSPPROG ---
Hospitalist Progress Note Assessment/Plan: Patient was recently admitted here in September w pancreatic mass and jaundice. Pt is s/p Whipple in September. On this admission he was admitted with fever, leukocytosis and rigors. Reviewed his care with Dr Robison. #. Gram neg rods/Bacteremia/Sepsis * leukocytosis * Meropenem * lactate elevated #. persistent hepatic abscess * s/p drainage/ (not much out) #. Pancreatic CA * s/p pancreaticoduodenectomy complicated by hepatic infarction. * CT shows R hepatic abscess within area of healthy liver. #. Pitting edema bilateral lower ext/ ascites * iv lasix today/ in addition to his oral dose * daily weights * per , his weight is up >20 -40 lbs * slowly improving #. Bilateral pleural effusion w atelectasis #. 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 Hx of alcohol use * no concerns #. anemia * due to ongoing illness * will follow #. Plan: give dose of iv lasix/ cont iv abx, follow labs. Subjective: Gurvinder is feeling overall fine/ feels he can walk better w the less swellling. Objective: Vital Signs Temp Pulse Resp BP Pulse Ox 36.8 C 85 18 121/75 H 96 11/13/16 07:25 11/13/16 07:25 11/13/16 07:25 11/13/16 07:25 11/13/16 07:25 Microbiology 11/12/16 14:30 Gram Stain - Final Liver - Aspirate 11/10/16 17:15 Gram Stain - Final Peritoneal Fluid - Aspirate Body Fluid Culture - Final Citrobacter Koseri Laboratory Results 11/13/16 05:25 11/13/16 05:25 11/12/16 11/13/16 11/14/16 05:59 05:59 05:59 Intake Total 500 113 Output Total 570 1280 Balance -70 -1167 PT 18.9 SEC (12.0-15.0) H 11/12/16 11:09 INR 1.58 (0.83-1.16) H 11/12/16 11:09 - Physical Exam Constitutional: not in pain, chronically ill appearing Eyes: PERRL Ears, Nose, Mouth, Throat: hearing normal Cardiovascular: regular rate and rhythym, edema (cont to have edema from feet all the way into his abdomen/ slightly better than yesterday) Respiratory: no respiratory distress, reduced air movement Gastrointestinal: ascites, distension, No tenderness Skin: warm, No normal color (pale) Musculoskeletal: generalized weakness Neurologic: AAOx3 Psychiatric: interacting appropriately ICD10 Worksheet Patient Problems: Problems Problem Status Onset Liver abscess Acute Biliary obstruction due to cancer Acute bi Acute
[2016-11-14] MEDS: MEROPENEM 1 GM in NS 100 ML IV SCH (05:58)
[2016-11-14] MEDS: FUROSEMIDE 40 MG TAB PO SCH (08:38)
[2016-11-14] MEDS: POTASSIUM CL 20 MEQ TAB PO SCH (08:38)
[2016-11-14] MEDS: INSULIN LISPRO 100 UNIT/ML SC SCH ×3 (09:23→18:01)
--- NOTE | 2016-11-14 10:54 | WOCRNPDOC ---
WOCRN Advanced Assessment Note - Skin Integrity Problem, Advanced Assess Right Abdomen Surgical Wound/Incision Dressing Type: Black Vac Foam (1 piece removed), White Vac Foam (1 piece removed.), Wound Vac Dressing Description: Intact Exudate Amount: Minimal Exudate Color: Reddish/Yellow Exudate Characteristic(s): Serosanguinous Integumentary Issue Intervention: Dressing Changed Shelby Wound Tissue: Intact Shelby Wound Swelling: None Wound Bed Color: Red Wound Bed Constitution: Granulation Tissue (95%), Smooth Tissue (5%), Undermining Wound Edges: Epithelizing Site Odor: None Site Measurement - Head-to-Toe Length X Width X Depth (cm): Measurements consistent w/ those taken on 11/12, however undermining has reduced from 3cm to 2cm. Skin Integrity Problem Comment: Surgical wound w/ copious granulation tissue noted, and epithelialization along entire circuference of wound edge. An area of undermining remains along the proximal aspect, measurements 1 cm smaller than previous assessment on 11/12. Small piece of white vac foam trimmed to tuck in undermined area and fill in the depth, and remainder of wound bed covered w/ 2 pieces of black vac foam. Settings continue at 125mmHg. History indicates that vac was off between 0300 and 0530 this morning, which aviation medicine specialist Janeth says was reported to her at shift change. Per report from NOC RN, vac was noted to be powered off. Nursing unable to determine why this occurred. It was reinitiated at 0530.
--- NOTE | 2016-11-14 12:12 | SOAPPROG ---
SOAP Progress Note Assessment/Plan: Assessment: 66yo male s/p recent pancreaticoduodenectomy admitted for fevers, leukocytosis. s/p IR drain for hepatic abscess this hospital stay Wound culture citrobacter Blood culture pending on meropenem PE in chair, nontoxic Chest CTA B/L Abdomen wound vac in place, IR drain with serous fluid, Left BRAULIO with thicker drainage, abdomen soft, nontender Plan: possible wound closure at later today, continue VAC for now leave drain in for now saw pt with Dr Guardado 11/14/16 12:07 Objective: Vital Signs Temp Pulse Resp BP Pulse Ox 37.1 C 90 20 115/75 94 11/14/16 11:46 11/14/16 11:46 11/14/16 11:46 11/14/16 11:46 11/14/16 11:46 Microbiology 11/12/16 14:30 Gram Stain - Final Liver - Aspirate Laboratory Results 11/14/16 10:15 11/13/16 05:25 11/13/16 11/14/16 11/15/16 05:59 05:59 05:59 Intake Total 113 1150 628 Output Total 1280 890 550 Balance -1167 260 78 PT 18.9 SEC (12.0-15.0) H 11/12/16 11:09 INR 1.58 (0.83-1.16) H 11/12/16 11:09 ICD10 Worksheet Patient Problems: Problems Problem Status Onset Liver abscess Acute Biliary obstruction due to cancer Acute bi Acute
[2016-11-14 12:17] LABS: % IMMATURE GRANULYOCYTES 0.8 % (0.0-1.1); ABSOLUTE IMMATURE GRANULOCYTES 0.14 10^3/uL (0.00-0.10); ADD DIFF? NO; ADD MORPH? NO; ADD SCAN? NO; ATYPICAL LYMPHOCYTE FLAG 50 (0-99); FRAGMENT RBC FLAG 0 (0-99); HEMATOCRIT 33.3 % (40.0-51.0); HEMOGLOBIN 10.9 g/dL (13.7-17.5); LEFT SHIFT FLG 10 (0-99); LIPEMIA HEMOLYSIS FLAG 80 (0-99); MEAN CELL HEMOGLOBIN 29.5 pg (27.9-34.1); MEAN CELL HEMOGLOBIN CONCENTR. 32.7 g/dL (32.4-36.7); MEAN CELL VOLUME 90.2 fL (81.5-99.8); MEAN PLATELET VOLUME 9.5 fL (8.7-11.7); PLATELET CLUMPS FLAG 0 (0-99); PLATELET COUNT 170 10^3/uL (150-400); RED BLOOD CELL COUNT 3.69 10^6/uL (4.40-6.38); RED CELL DISTRIBUTION WIDTH 14.6 % (11.5-15.2)
--- NOTE | 2016-11-14 12:32 | PCMIDPN ---
Assessment/Plan: Assessment/Plan: 1. Citrobacter koseri sepsis with bacteremia and persistent right hepatic abscess: - Also with Left hepatic necrosis - Wbc still at 20. repeat cbc today pending -Blood cx and previous JOSSY drain cx with Citrobacter. New drainage cx with Citrobacter as well. -s/p pigtail catheter to right hepatic abscess 11/12/16. - Sensitivities back and reviewed: intermediate to zosyn, resistant to augmentin /unasyn. sensitive to Merem. - currently on Merem. Will tailor down antibiotics to invanz. -f/u blood cx from 11/13 one set ngtd. -Has had picc line since September. Recommend changing tomorrow if f/u blood cx remain ngtd. - For f/u cbc today. pending at [facility]. -Reviewed cultures with patient and . - Will fill out interagency form. Plan for 4 weeks of atbx tentatively for now. -Discussed plan of care for today. -care coordinated with hospitalist team -f/u in office on 11/21/16 at 1pm. -care coordinated with case management, and RN, hospitalist team, surgical team. 2. Hx Pancreatic Ca, s/p Whipples (10/09/16) - Post op course complicated by left hepatic necrosis. Current JOSSY drain appears to be within this area and draining out thin purulent looking material -Wound vac in place on medial aspect of surgical incision site.Wound base clean. MEds Merem 1g q8- 11/11/16.--#4 Subjective: Afebrile. More drainage from New jossy drain now. Denies monique abd pain. abd distended. Denies sob. LE with edema Objective: Vital Signs Temp Pulse Resp BP Pulse Ox 37.1 C 90 20 115/75 94 11/14/16 11:46 11/14/16 11:46 11/14/16 11:46 11/14/16 11:46 11/14/16 11:46 Microbiology 11/12/16 14:30 Gram Stain - Final Liver - Aspirate Laboratory Results 11/13/16 05:25 11/13/16 11/14/16 11/15/16 05:59 05:59 05:59 Intake Total 113 1150 628 Output Total 1280 890 550 Balance -1167 260 78 - Physical Exam General Appearance: alert, no apparent distress Respiratory: lungs clear Cardiac/Chest: regular rate, rhythm Extremities: swelling (b/l LE edema, pitting. ), other (picc line) Abdomen: normal bowel sounds, soft, distended, other (right jossy drain with yellowish material and debri, left JOSSY drain wiht more brown-yellow material, wound vac in place. ) Skin: No erythema - Time Spent With Patient Time Spent with Patient: greater than 35 minutes Time Spent with Patient: Greater than 35 minutes spent on this patients care, greater than 50% of time spent counseling, educating, and coordinating care regarding the above mentioned plan. ICD10 Worksheet Patient Problems: Problems Problem Status Onset Liver abscess Acute Biliary obstruction due to cancer Acute bi Acute
--- NOTE | 2016-11-14 12:37 | PDIAF ---
- Diagnosis Diagnosis: Citrobacter sepsis with bacteremia/Right hepatic abscess/left liver necrosi Code Status: Full Code - Medication Management Discharge Medications: Medications to Continue on Transfer Furosemide [Furosemide] 40 mg PO DAILY 11/10/16 [Last Taken 11/09/16] Ibuprofen [Motrin (*)] 600 mg PO Q6H PRN 11/10/16 [Last Taken 11/09/16 21:00] Potassium Chloride [Klor-Con M20] 20 meq PO DAILY 11/10/16 [Last Taken 11/09/16] Prop Cutter Antibiotics: Invanz 1g IV daily. Assisted Antibiotic Stop Date: 12/12/16 Discharge Medications: Refer to the Discharge Home Medication list for PRN reason. PICC Care - Routine: Yes - Orders Services needed: Home Halfway Care Face to Face: I certify that this patient was under my care and that I had the required [id number] encounter meeting the encounter requirements on the discharge day. My findings support the fact that the patient is homebound as defined in CMS Chapter 7 Medicare Benefits Manual 30.1.1, The condition of the patient is such that there exists a normal inability to leave home and consequently, leaving home would require a considerable and taxing effort. - Labs/Radiology CBC Date: 11/19/16 (q mondays) CMP Date: 11/19/16 (qmond) CRP Date: 11/19/16 (q mondays) Call or Fax Lab and Imaging Results to: fax to Dr. Robison:[phone] - Follow Up Care Current Providers and Referrals: NONE *PRIMARY CARE P,. [Primary Care Provider] - As per Instructions David Robison MD [Medical Doctor] - 11/21/16 1:00 pm (f/u with Dr. Robison ( Infectious Disease) 11/21/16 at 1pm. Check in at 12:45pm. )
[2016-11-14] MEDS ORDERED: FUROSEMIDE 40 MG/4 ML VIAL IVP ONE (15:12)
[2016-11-14] MEDS: ERTAPENEM 1 GM in NS 100 ML IV SCH (15:41)
--- NOTE | 2016-11-14 15:56 | HOSPPROG ---
Hospitalist Progress Note Assessment/Plan: Patient was recently admitted here in September w pancreatic mass and jaundice. Pt is s/p Whipple in September. On this admission he was admitted with fever, leukocytosis and rigors. Reviewed his care with Dr Robison. Assessment 1st encounter with the patient, chart reviewed. #. Citrobacter koseri sepsis with bacteremia and persistent right hepatic abscess * leukocytosis * Meropenem * lactate elevate * Left hepatic necrosis * Has had picc line since September. Recommend changing tomorrow if f/u blood cx remain ngtd. * Plan for 4 weeks of atbx tentatively for now #. persistent hepatic abscess * s/p drainage/ (not much out) * Wound vac in place on medial aspect of surgical incision site #. Pancreatic CA * s/p pancreaticoduodenectomy complicated by hepatic infarction. * CT shows R hepatic abscess within area of healthy liver. #. Pitting edema bilateral lower ext/ ascites * iv lasix today/ in addition to his oral dose * daily weights * per , his weight is up >20 -40 lbs * slowly improving #. Bilateral pleural effusion w atelectasis #. 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 Hx of alcohol use * no concerns #. anemia * due to ongoing illness * will follow #. Plan: give dose of iv lasix/ cont iv abx, follow labs. Subjective: Up in chair. No specific complaints. Feeling better today. Objective: Vital Signs Temp Pulse Resp BP Pulse Ox 37.1 C 90 20 115/75 94 11/14/16 11:46 11/14/16 11:46 11/14/16 11:46 11/14/16 11:46 11/14/16 11:46 Microbiology 11/12/16 14:30 Gram Stain - Final Liver - Aspirate Laboratory Results 11/14/16 11:50 11/13/16 05:25 11/13/16 11/14/16 11/15/16 05:59 05:59 05:59 Intake Total 113 1150 628 Output Total 1280 890 550 Balance -1167 260 78 PT 18.9 SEC (12.0-15.0) H 11/12/16 11:09 INR 1.58 (0.83-1.16) H 11/12/16 11:09 - Physical Exam Constitutional: no apparent distress, appears nourished, not in pain Eyes: PERRL, anicteric sclera, EOMI Ears, Nose, Mouth, Throat: moist mucous membranes, hearing normal, ears appear normal Cardiovascular: regular rate and rhythym, No JVD, No edema Respiratory: no respiratory distress, no rales or rhonchi, reduced air movement Gastrointestinal: distension, No ascites, No guarding Skin: warm, normal color, No erythema Musculoskeletal: normal joint ROM, no joint effusions, generalized weakness Neurologic: AAOx3 Psychiatric: not anxious, not encephalopathic, thought process linear ICD10 Worksheet Patient Problems: Problems Problem Status Onset Liver abscess Acute Biliary obstruction due to cancer Acute bi Acute
[2016-11-15] MEDS: INSULIN LISPRO 100 UNIT/ML SC SCH ×3 (07:56→16:51)
--- NOTE | 2016-11-15 08:37 | SOAPPROG ---
SOAP Progress Note Assessment/Plan: Assessment: A FEBRILE/ WOUND GRANULATING WELL / MODERATE BRAULIO DRAINAGE / Plan: CONTINUE IV ANTIBIOTICS 11/15/16 08:36 Objective: Vital Signs Temp Pulse Resp BP Pulse Ox 37.1 C 87 18 115/70 94 11/15/16 08:00 11/15/16 08:00 11/15/16 08:00 11/15/16 08:00 11/15/16 08:00 Microbiology 11/12/16 14:30 Gram Stain - Final Liver - Aspirate Body Fluid Culture - Final Citrobacter Koseri Laboratory Results 11/14/16 11:50 11/13/16 05:25 11/14/16 11/15/16 11/16/16 05:59 05:59 05:59 Intake Total 1150 1883 Output Total 890 1948 Balance 260 -65 PT 18.9 SEC (12.0-15.0) H 11/12/16 11:09 INR 1.58 (0.83-1.16) H 11/12/16 11:09 ICD10 Worksheet Patient Problems: Problems Problem Status Onset Liver abscess Acute Biliary obstruction due to cancer Acute bi Acute
[2016-11-15] MEDS: FUROSEMIDE 40 MG TAB PO SCH (08:51)
[2016-11-15] MEDS: ERTAPENEM 1 GM in NS 100 ML IV SCH (08:52)
[2016-11-15] MEDS: POTASSIUM CL 20 MEQ TAB PO SCH (08:52)
[2016-11-15] MEDS ORDERED: FUROSEMIDE 40 MG/4 ML VIAL IVP ONE (10:18)
[2016-11-15] MEDS ORDERED: ALTEPLASE 2 MG VIAL IVP PRN (13:38)
--- NOTE | 2016-11-15 13:40 | PCMIDPN ---
Assessment/Plan: Assessment: Citrobacter bacteremia with right hepatic abscess. Patient is status post Whipple procedure in this is likely secondary to ascending cholangitis. The drain is continuing to put out fluid. Patient is stable on ertapenem monotherapy. Duration is planned through 12/12/16. White blood cells decreased to 17,000 today. Plan: 1. Continue ertapenem 1 g IV Q 24 hours. 2. Duration of treatment through 12/12/2016. 3. Follow up in office with Dr. Ricki alcantar set. Subjective: Patient is resting in his hospital room. No fevers or chills. He feels well. He is tolerating his ertapenem without difficulty. Objective: Ertapenem # 1 (# 5) Vital Signs Temp Pulse Resp BP Pulse Ox 37.1 C 87 18 115/70 94 11/15/16 08:00 11/15/16 08:00 11/15/16 08:00 11/15/16 08:00 11/15/16 08:00 Microbiology 11/12/16 14:30 Gram Stain - Final Liver - Aspirate Body Fluid Culture - Final Citrobacter Koseri Laboratory Results 11/14/16 11:50 11/13/16 05:25 11/14/16 11/15/16 11/16/16 05:59 05:59 05:59 Intake Total 1150 1883 450 Output Total 890 1948 Balance 260 -65 450 - Physical Exam General Appearance: WD/WN, alert, no apparent distress, non-toxic Respiratory: lungs clear, normal breath sounds, No respiratory distress Cardiac/Chest: regular rate, rhythm, No tachycardia Abdomen: non-tender, soft Skin: normal color, warm/dry, No rash Neuro/Psych: alert, normal mood/affect, oriented x 3 ICD10 Worksheet Patient Problems: Problems Problem Status Onset Liver abscess Acute Biliary obstruction due to cancer Acute bi Acute
--- NOTE | 2016-11-15 15:10 | HOSPPROG ---
Hospitalist Progress Note Assessment/Plan: Patient was recently admitted here in September w pancreatic mass and jaundice. Pt is s/p Whipple in September. On this admission he was admitted with fever, leukocytosis and rigors. Reviewed his care with Dr Robison. #. Citrobacter koseri sepsis with bacteremia and persistent right hepatic abscess * leukocytosis * Meropenem * lactate elevate * Left hepatic necrosis * Has had picc line since September. Recommend changing tomorrow if f/u blood cx remain ngtd. * Plan for 4 weeks of atbx tentatively for now #. persistent hepatic abscess * s/p drainage/ (not much out) * Wound vac in place on medial aspect of surgical incision site #. Pancreatic CA * s/p pancreaticoduodenectomy complicated by hepatic infarction. * CT shows R hepatic abscess within area of healthy liver. #. Pitting edema bilateral lower ext/ ascites * iv lasix today again/ in addition to his oral dose * daily weights * slowly improving * May need increased oral dose regularly * RN to wrap bilateral lower extremities with Lior wraps #. Bilateral pleural effusion w atelectasis #. 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 Hx of alcohol use * no concerns #. anemia * due to ongoing illness * will follow #. Plan: give dose of iv lasix/ cont iv abx, follow labs. Subjective: Feeling better today. Still having significant bilateral lower extremity swelling. No pain currently. Objective: Vital Signs Temp Pulse Resp BP Pulse Ox 37.1 C 87 18 115/70 94 11/15/16 08:00 11/15/16 08:00 11/15/16 08:00 11/15/16 08:00 11/15/16 08:00 Microbiology 11/12/16 14:30 Gram Stain - Final Liver - Aspirate Body Fluid Culture - Final Citrobacter Koseri Laboratory Results 11/14/16 11:50 11/13/16 05:25 11/14/16 11/15/16 11/16/16 05:59 05:59 05:59 Intake Total 1150 1883 450 Output Total 890 1948 Balance 260 -65 450 PT 18.9 SEC (12.0-15.0) H 11/12/16 11:09 INR 1.58 (0.83-1.16) H 11/12/16 11:09 - Physical Exam Constitutional: not in pain, chronically ill appearing Eyes: PERRL, anicteric sclera Ears, Nose, Mouth, Throat: moist mucous membranes, hearing normal Cardiovascular: edema, No JVD Respiratory: no respiratory distress, reduced air movement Gastrointestinal: tenderness, ascites Skin: warm, other (wound vac) Musculoskeletal: no joint effusions, generalized weakness Neurologic: AAOx3 Psychiatric: not anxious, not encephalopathic ICD10 Worksheet Patient Problems: Problems Problem Status Onset bi Acute Biliary obstruction due to cancer Acute Liver abscess Acute
[2016-11-16 05:47] LABS: ANION GAP 4 mEq/L (8-16); CALCIUM 7.4 mg/dL (8.5-10.4); CARBON DIOXIDE 28 mEq/l (22-31); CHLORIDE 100 mEq/L (97-110); CREATININE 0.6 mg/dL (0.7-1.3); GLOMERULAR FILTRATION RATE > 60; GLUCOSE 110 mg/dL (70-100); POTASSIUM 3.7 mEq/L (3.5-5.2); SODIUM 132 mEq/L (134-144)
[2016-11-16 07:50] VITALS: BP 112/76; PULSE 86; RESP 16; TEMP 98.3; O2SAT 91
--- NOTE | 2016-11-16 08:45 | WOCRNPDOC ---
WOCRN Advanced Assessment Note - Skin Integrity Problem, Advanced Assess Right Abdomen Surgical Wound/Incision Dressing Type: Black Vac Foam (x1), White Vac Foam (x1), Wound Vac Dressing Description: Clean/Dry, Intact Exudate Amount: Scant Exudate Characteristic(s): Serosanguinous Integumentary Issue Intervention: Dressing Changed Sakina Wound Tissue: Erythema (around 10 oclock, minimal) Wound Bed Color: Red Wound Bed Constitution: Granulation Tissue, Tunneling (1 oclock), Undermining (9 -11 2.5 cm) Wound Edges: Epithelizing Skin Integrity Problem Comment: Flushed with ns. Skin prep and drape sakina wound. One piece of white foam to 1 oclock tunnel (cut very thin) and a second into undermining (also cut very very thin. 1 piece of medium black foam to wound bed. Used simplace, but block may work better. Vac restarted at - 125 mm Hg continous suction with no leaks. FR student RN in room for care.
[2016-11-16] MEDS: POTASSIUM CL 20 MEQ TAB PO SCH (09:30)
[2016-11-16] MEDS: ERTAPENEM 1 GM in NS 100 ML IV SCH (09:30)
[2016-11-16] MEDS: INSULIN LISPRO 100 UNIT/ML SC SCH ×2 (09:30→12:06)
[2016-11-16] MEDS: FUROSEMIDE 40 MG TAB PO SCH (09:30)
--- NOTE | 2016-11-16 10:01 | SOAPPROG ---
SOAP Progress Note Assessment/Plan: Assessment: 66yo male s/p recent pancreaticoduodenectomy admitted for fevers, leukocytosis. s/p IR drain for hepatic abscess this hospital stay Wound culture citrobacter on meropenem Tolerating regular diet, normal BM, no pain. PE in chair, nontoxic Chest CTA B/L Abdomen wound vac in place, IR drain with serous fluid, Left BRAULIO with thicker drainage, abdomen soft, nontender Plan: possible wound closure at later today, continue VAC for now leave drain in for now, ok to d/c with follow-up in our office 11/14/16 12:07 11/16/16 10:00 Objective: Vital Signs Temp Pulse Resp BP Pulse Ox 36.8 C 86 16 112/76 91 L 11/16/16 07:48 11/16/16 07:48 11/16/16 07:48 11/16/16 07:48 11/16/16 07:48 Laboratory Results 11/14/16 11:50 11/16/16 05:10 11/15/16 11/16/16 11/17/16 05:59 05:59 05:59 Intake Total 1883 450 Output Total 1948 85 340 Balance -65 365 -340 PT 18.9 SEC (12.0-15.0) H 11/12/16 11:09 INR 1.58 (0.83-1.16) H 11/12/16 11:09 ICD10 Worksheet Patient Problems: Problems Problem Status Onset Liver abscess Acute Biliary obstruction due to cancer Acute bi Acute
--- NOTE | 2016-11-16 10:16 | PCMIDPN ---
Assessment/Plan: 1. Citrobacter bacteremia/hepatic abscess: The patient's transfer summary has been filled out by my colleague, Dr. Robison. Tentative antibiotic end date December 12. Patient has a follow-up with Dr. Robison in our clinic. He is eager to go home today, and I believe the logistics of his discharge have been set up. Patient had a new PICC line inserted yesterday. No new recommendations. Subjective: In excellent spirits. Eager to go home. Had a new PICC line inserted yesterday. Objective: Ertapenem 1 g IV daily day 2 (antibiotics day 6) Afebrile Vital Signs Temp Pulse Resp BP Pulse Ox 36.8 C 86 16 112/76 91 L 11/16/16 07:48 11/16/16 07:48 11/16/16 07:48 11/16/16 07:48 11/16/16 07:48 Laboratory Results 11/14/16 11:50 11/16/16 05:10 11/15/16 11/16/16 11/17/16 05:59 05:59 05:59 Intake Total 1883 450 Output Total 1948 85 340 Balance -65 365 -340 No new microbiology. Blood cultures from the have been negative - Physical Exam General Appearance: alert, no apparent distress EENT: pharynx normal Respiratory: lungs clear Extremities: other (PICC line right upper extremity looks fine) Abdomen: soft, distended, other (Wound VAC right upper quadrant looks fine with no surrounding erythema or tenderness. [address], 1/2 full of opaque fluid) Skin: No rash ICD10 Worksheet Patient Problems: Problems Problem Status Onset Liver abscess Acute Biliary obstruction due to cancer Acute bi Acute
--- NOTE | 2016-11-16 10:55 | HOSPPROG ---
Hospitalist Progress Note Assessment/Plan: Patient was recently admitted here in September w pancreatic mass and jaundice. Pt is s/p Whipple in September. On this admission he was admitted with fever, leukocytosis and rigors. #. Citrobacter koseri sepsis with bacteremia and persistent right hepatic abscess * leukocytosis * Meropenem * lactate elevate * Left hepatic necrosis * New PICC. * Plan for 4 weeks of abx tentatively for now #. persistent hepatic abscess * s/p drainage/ (not much out) * Wound vac in place on medial aspect of surgical incision site * per surgery #. Pancreatic CA * s/p pancreaticoduodenectomy complicated by hepatic infarction. * CT shows R hepatic abscess within area of healthy liver. #. Pitting edema bilateral lower ext/ ascites * cont PO lasix at time of discharge and potasium * slowly improving * wrap bilateral lower extremities with Lior wraps, responding well. * cont LIOR wrap at home #. Bilateral pleural effusion w atelectasis * cont lasix at time of DC #. 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 Hx of alcohol use * no concerns #. anemia * due to ongoing illness * will follow #. Plan: OK to DC home from medicine standpoint with PO lasix Subjective: Feeling well today. Less swelling in lower extremities. No pain currently. Objective: Vital Signs Temp Pulse Resp BP Pulse Ox 36.8 C 86 16 112/76 91 L 11/16/16 07:48 11/16/16 07:48 11/16/16 07:48 11/16/16 07:48 11/16/16 07:48 Laboratory Results 11/14/16 11:50 11/16/16 05:10 11/15/16 11/16/16 11/17/16 05:59 05:59 05:59 Intake Total 1883 450 Output Total 1948 85 340 Balance -65 365 -340 PT 18.9 SEC (12.0-15.0) H 11/12/16 11:09 INR 1.58 (0.83-1.16) H 11/12/16 11:09 - Physical Exam Constitutional: appears nourished, chronically ill appearing Eyes: PERRL, anicteric sclera Ears, Nose, Mouth, Throat: moist mucous membranes, hearing normal Cardiovascular: No JVD, No tachycardia Respiratory: no respiratory distress, reduced air movement Gastrointestinal: No tenderness, No guarding Skin: warm, normal color Musculoskeletal: no joint effusions, generalized weakness Neurologic: AAOx3 Psychiatric: not anxious, not encephalopathic, thought process linear ICD10 Worksheet Patient Problems: Problems Problem Status Onset bi Acute Biliary obstruction due to cancer Acute Liver abscess Acute
--- NOTE | 2016-11-16 12:50 | PDIAF ---
- Diagnosis Diagnosis: Citrobacter sepsis with bacteremia/Right hepatic abscess/left liver necrosi Code Status: Full Code - Medication Management Discharge Medications: Medications to Continue on Transfer Furosemide [Furosemide] 40 mg PO DAILY 11/10/16 [Last Taken 11/09/16] Ibuprofen [Motrin (*)] 600 mg PO Q6H PRN 11/10/16 [Last Taken 11/09/16 21:00] Potassium Chloride [Klor-Con M20] 20 meq PO DAILY 11/10/16 [Last Taken 11/09/16] Hair Spring Cutter Antibiotics: Invanz 1g IV daily. Group Home Antibiotic Stop Date: 12/12/16 Discharge Medications: Refer to the Discharge Home Medication list for PRN reason. PICC Care - Routine: Yes - Orders Services needed: Home Care, Registered Nurse, Physical Therapy, Occupational Therapy Home Care Face to Face: I certify that this patient was under my care and that I had the required [id number] encounter meeting the encounter requirements on the discharge day. My findings support the fact that the patient is homebound as defined in CMS Chapter 7 Medicare Benefits Manual 30.1.1, The condition of the patient is such that there exists a normal inability to leave home and consequently, leaving home would require a considerable and taxing effort. - Labs/Radiology CBC Date: 11/19/16 (q mondays) CMP Date: 11/19/16 () CRP Date: 11/19/16 (q mondays) Call or Fax Lab and Imaging Results to: fax to Dr. Robison:[phone] - Follow Up Care Current Providers and Referrals: NONE *PRIMARY CARE P,. [Primary Care Provider] - As per Instructions David Robison MD [Medical Doctor] - 11/21/16 1:00 pm (f/u with Dr. Robison ( Infectious Disease) 11/21/16 at 1pm. Check in at 12:45pm. )
--- NOTE | 2016-11-20 07:31 | GDS ---
[f rep st] DISCHARGE SUMMARY REASON FOR ADMISSION: Fevers. OTHER PERTINENT DIAGNOSES: 1. Recent Whipple procedure. 2. Pancreatic carcinoma. 3. Liver necrosis status post surgery. 4. Recent wound-VAC placement. HOSPITAL COURSE: Patient is a very pleasant 66-year-old male who recently underwent a Whipple proce dure with Dr. Guardado in September 2016. His postoperative course was complicated by liver infarction. He was discharged on oral Augmentin in late September. Prior to this admission he developed episodes of fever and chills. He came to the emergency department after recording a temperature of 103.2. A CT scan was done which demonstrated a possible abscess. He underwent ultrasound abscess drainage and approximately 15 mL of thick yellowish cloudy fluid was sent for culture. Citrobacter sepsis wi th bacteremia and persistent right hepatic abscess were also managed by Infectious Disease. The pat barajas underwent wound VAC changes while in the hospital for right transverse wound over his abdomen. At the time of discharge, the wound appeared very healthy with a small amount of granulation tissue . The patient was discharged with the plan of antibiotics for 4 weeks for Citrobacter. He is on me ropenem. He will continue to have wound-VAC changes and other home care. His hospital course was a lso remarkable for pitting edema. He is instructed to continue his oral Lasix and potassium. The jeffy bustamante was instructed to follow up with Dr. Robison and Infectious Disease Clinic. He did have a PICC li ne inserted during this hospital course stay. Patient was instructed to follow up in the office of Dr. Guardado in approximately 7-10 days. At the t bert of discharge, he was tolerating a regular diet, having normal bowel movements and appeared quite well given his overall condition. /[id number]/MODL
== END 2016-11-16 18:22 | disposition home health service (06) | DRG 871 ==
LOC: F3E 16:04
PROVIDERS: ADMIT Surgery; ATTEND Surgery
PROC: 0F913ZX Drainage of Right Lobe Liver, Percutaneous Approach, Diagnostic (ICD-10-PCS; principal; 2016-11-12)
PROC: 02HV33Z Insertion of Infusion Device into Superior Vena Cava, Percutaneous Approach (ICD-10-PCS; 2016-11-15)
DX: A41.59 Other Gram-negative sepsis (principal); K75.0 Abscess of liver; C25.9 Malignant neoplasm of pancreas, unspecified; J90 Pleural effusion, not elsewhere classified; E11.9 Type 2 diabetes mellitus without complications; Z98.890 Other specified postprocedural states
CPT/HCPCS: 82947-QW; 96365; 97112-GP; 97161-GP; C1751; G8978-GP-CI; G8979-GP-CI; J0692; J0696; J1335; J1815; J1956; J2185; J2250; J2310; J2543; J3010; Q9967

== ENCOUNTER → 2016-12-03 | Outpatient (CLI) | payer OTHER ==
[~2016-12-03] MED LIST changes: +IOPAMIDOL (ISOVUE-300) 100 ML BTL IV ONE; -cefOXitin SODIUM 2 GM in D5W 100 ML IV ONE
== END ==
LOC: FIMAGING 12:31
PROVIDERS: ATTEND Surgery
DX: K72.90 Hepatic failure, unspecified without coma (principal); K75.0 Abscess of liver; R18.8 Other ascites
CPT/HCPCS: Q9967

== ENCOUNTER → 2016-12-24 | Outpatient (CLI) | payer OTHER | LOC: FLAB 14:21 | PROVIDERS: ATTEND Internal Medicine Infectious Disease | DX: J98.11 Atelectasis (principal); J90 Pleural effusion, not elsewhere classified; Z96.89 Presence of other specified functional implants ==

== ENCOUNTER → 2017-01-08 | Outpatient (CLI) | payer OTHER ==
[~2017-01-08] MED LIST changes: +IOPAMIDOL (ISOVUE 370) 100 ML BTL IV ONE
== END ==
LOC: CIMAGING 13:11
PROVIDERS: ATTEND Internal Medicine Infectious Disease
DX: K75.0 Abscess of liver (principal); R05 Cough; Z79.2 Long term (current) use of antibiotics; R18.8 Other ascites; K72.90 Hepatic failure, unspecified without coma
CPT/HCPCS: 74160-PO; Q9967

== ENCOUNTER → 2017-02-22 | Outpatient (CLI) | payer OTHER ==
[~2017-02-22] MED LIST changes: -IOPAMIDOL (ISOVUE 370) 100 ML BTL IV ONE; -IOPAMIDOL (ISOVUE-300) 100 ML BTL IV ONE; +IOPAMIDOL (ISOVUE-300) 100 ML BTL ONE
== END ==
LOC: CIMAGING 11:10
PROVIDERS: ATTEND Internal Medicine Infectious Disease
DX: K75.0 Abscess of liver (principal); R18.8 Other ascites; J90 Pleural effusion, not elsewhere classified; R93.8 Abnormal findings on diagnostic imaging of other specified body structures
CPT/HCPCS: 74160-PO; Q9967

== ENCOUNTER → 2017-03-01 | Outpatient (CLI) | payer OTHER ==
[~2017-03-01] MED LIST changes: +ALBUMIN 25% 50 ML SOLN IV ONE; +IOPAMIDOL (ISOVUE 370) 100 ML BTL IV ONE; -IOPAMIDOL (ISOVUE-300) 100 ML BTL ONE
[2017-03-01 14:11] LABS: LD, PERITONEAL FLUID 204 IU/L
== END ==
LOC: FIMAGING 10:10
PROVIDERS: ATTEND Internal Medicine Infectious Disease
PROC: 0W9F3ZZ Drainage of Abdominal Wall, Percutaneous Approach (ICD-10-PCS; principal; 2017-03-01)
DX: K76.89 Other specified diseases of liver (principal); R18.8 Other ascites
CPT/HCPCS: P9047; Q9967

== ENCOUNTER → 2017-03-12 | Outpatient (CLI) | payer OTHER | LOC: FIMAGING 12:30 | PROVIDERS: ATTEND Surgery | DX: J90 Pleural effusion, not elsewhere classified (principal); J98.11 Atelectasis; Z90.411 Acquired partial absence of pancreas; Z85.07 Personal history of malignant neoplasm of pancreas ==

== ENCOUNTER → 2017-03-21 | Outpatient (CLI) | payer OTHER ==
[~2017-03-21] MED LIST changes: +ALBUMIN 25% 100 ML SOLN IV ONE; -IOPAMIDOL (ISOVUE 370) 100 ML BTL IV ONE; +LIDOCAINE 1% 300 MG/30 ML SDV ONE
[2017-03-21 13:18] LABS: LD, PLEURAL FLUID 187 IU/L
== END ==
LOC: FIMAGING 08:59
PROVIDERS: ATTEND Internal Medicine Infectious Disease
PROC: 0W9F3ZZ Drainage of Abdominal Wall, Percutaneous Approach (ICD-10-PCS; principal; 2017-03-21)
DX: R18.8 Other ascites (principal); J90 Pleural effusion, not elsewhere classified
CPT/HCPCS: P9047

== ENCOUNTER 2017-03-29 08:05 | Day surgery (SDC) | payer OTHER ==
[2017-03-29] MEDS ORDERED: FLUMAZENIL 0.5 MG/5 ML MDV IVP ONE (09:15)
[2017-03-29] MEDS ORDERED: NALOXONE HCL 0.4 MG/ML INJ ONE (09:15)
[2017-03-29] MEDS ORDERED: MIDAZOLAM 2 MG/2 ML VIAL ONE (09:16)
[2017-03-29] MEDS ORDERED: fentaNYL 100 MCG/2 ML INJ ONE (09:16)
[2017-03-29] MEDS ORDERED: ALBUMIN 25% 100 ML SOLN IV ONE (10:36)
[2017-03-29] MEDS ORDERED: LIDOCAINE 1% 300 MG/30 ML SDV ONE (10:38)
[2017-03-29] MEDS ORDERED: IOPAMIDOL (ISOVUE-300) 100 ML BTL ONE (10:38)
== END 2017-03-29 12:35 | disposition home or self-care (01) ==
LOC: FIMAGING 08:05
PROVIDERS: ATTEND Internal Medicine Infectious Disease
PROC: 0WH Anatomical Regions, General, Insertion (ICD-10-PCS; principal; 2017-03-29)
PROC: 0WP Anatomical Regions, General, Removal (ICD-10-PCS; 2017-03-29)
DX: R18.8 Other ascites (principal); Z85.07 Personal history of malignant neoplasm of pancreas; Z98.890 Other specified postprocedural states
CPT/HCPCS: 49419; 49422; 76000; 99152; 99153; C1769; C2617; J2250; J2310; J3010; P9047; Q9967

== ENCOUNTER → 2017-04-11 | Outpatient (CLI) | payer OTHER ==
[~2017-04-11] MED LIST changes: -ALBUMIN 25% 100 ML SOLN IV ONE; -ALBUMIN 25% 50 ML SOLN IV ONE; +IOPAMIDOL (ISOVUE-300) 100 ML BTL ONE; -LIDOCAINE 1% 300 MG/30 ML SDV ONE
== END ==
LOC: CIMAGING 13:22
PROVIDERS: ATTEND Internal Medicine Infectious Disease
DX: R19.07 Generalized intra-abdominal and pelvic swelling, mass and lump (principal); R93.8 Abnormal findings on diagnostic imaging of other specified body structures; R18.8 Other ascites; J90 Pleural effusion, not elsewhere classified; Z96.89 Presence of other specified functional implants; Z85.07 Personal history of malignant neoplasm of pancreas
CPT/HCPCS: 74160-PO; Q9967

== ENCOUNTER 2017-04-19 07:10 | Day surgery (SDC) | payer OTHER ==
[2017-04-19 08:03] LABS: INR 1.3 (0.83-1.16); PROTIME(PATIENT) 16.2 SEC (12.0-15.0)
[2017-04-19 08:04] LABS: APTT 28.6 SEC (23.0-38.0)
[2017-04-19] MEDS ORDERED: FLUMAZENIL 0.5 MG/5 ML MDV IVP ONE (08:12)
[2017-04-19] MEDS ORDERED: NALOXONE HCL 0.4 MG/ML INJ ONE (08:12)
[2017-04-19] MEDS ORDERED: fentaNYL 100 MCG/2 ML INJ ONE (08:12)
[2017-04-19] MEDS ORDERED: MIDAZOLAM 2 MG/2 ML VIAL ONE (08:12)
[2017-04-19] MEDS ORDERED: CIPROFLOXACIN 400 MG/DEXTROSE 200 ML IV ONE (09:45)
== END 2017-04-19 12:45 | disposition home health service (06) ==
LOC: FIMAGING 07:10
PROVIDERS: ATTEND Internal Medicine Infectious Disease
PROC: 0W9G30Z Drainage of Peritoneal Cavity with Drainage Device, Percutaneous Approach (ICD-10-PCS; principal; 2017-04-19 11:05)
DX: K75.0 Abscess of liver (principal); C25.9 Malignant neoplasm of pancreas, unspecified; Z79.2 Long term (current) use of antibiotics; Z98.890 Other specified postprocedural states
CPT/HCPCS: 87186-90; J0744; J2250; J2310; J3010

== ENCOUNTER 2017-04-23 16:32 | Inpatient (IN) | payer OTHER ==
[2017-04-23] MEDS ORDERED: ONDANSETRON DISINTEGRATING 4 MG TAB PO PRN (17:11)
[2017-04-23] MEDS ORDERED: ONDANSETRON 4 MG/2 ML VIAL IVP PRN (17:11)
[2017-04-23] MEDS ORDERED: ACETAMINOPHEN 325 MG TAB PO PRN (17:11)
[2017-04-23] MEDS ORDERED: IOPAMIDOL (ISOVUE-300) 100 ML BTL ONE (17:56)
[2017-04-23] MEDS ORDERED: metroNIDAZOLE 500 MG TAB PO SCH (18:00)
--- NOTE | 2017-04-23 19:49 | GHP ---
[f rep st] HISTORY AND PHYSICAL DATE OF ADMISSION: 04/23/2017 CHIEF COMPLAINT: Hyponatremia. HISTORY OF PRESENT ILLNESS: The patient is a very pleasant 66-year-old male with history of pancreatic cancer, status post Whipple September 2016, complicated by bacteremia and liver abscesses that grew Citrobacter. Had abscess drain placed in Sep 2016, replaced in Oct. Has ascites drain placed 3 weeks ago with much improvement of abdominal distension and lower extremity swelling. Drains ascite twoce daily; 700-1000cc at night and 600cc in morning usually. He is followed closely by Dr. Robison with Infectious Disease and has been on Bactrim. He also has a biliary fistula. He was seen in Onc clinic last week for dehydration and sent home after IVFs. Since then, he has been drinking fluids just not much food, because gets full easily and nauseated. Dr. Robison did labs yesterday with Na was 122, K 5.4. He has mild ankle swelling today. Has some has intermittent gnawing abdominal pain if he eats or with an empty stomach. For pain, he takes something called "Pain Control," which is a natural remedy. Denies any fevers, chills or sweats. No diarrhea. Mild headache today. Dr. Robison discussed the case with me and wanted to directly admit patient for hyponatremia and concern for fungal infection; yeast grew out on culture 04/19/2017. The patient has an ascitic drain that drains twice a day, usually anywhere from 600-700 in the morning and 700-1000 cc in the evening. Today, it took off 750 cc this morning and last night 650. PAST MEDICAL HISTORY: Pancreatic cancer, status post Whipple complicated by liver abscess and bacteremia. Prior history of alcohol use. PAST SURGICAL HISTORY: Shoulder surgery x3, wrist surgery, and inguinal hernia repair. SOCIAL HISTORY: Lives in [place] with his . Does not drink alcohol or smoke tobacco. Occasional marijuana. 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 ALLERGIES: None. HOME MEDICATIONS: Bactrim, last dose was today. FAMILY HISTORY: Father with lymphoma. Sister with cervical cancer, now in remission. Brother with prostate cancer, now doing well. PHYSICAL EXAMINATION: VITAL SIGNS: Temperature 36.9, blood pressure 105/69, heart rate 80s, respirations 16, 92% on room air. GENERAL: Patient is lying in bed in no acute distress. HEENT: PERRLA. Dry mucous membranes. Oropharynx clear. CV: Regular rate and rhythm. No murmurs, gallops, or rubs. +1 pitting edema in ankles bilaterally. LUNGS: Clear to auscultation. No crackles. ABDOMEN: With 3 drains, an ascitic drain in the right abdomen, [address] with minimal yellowish drainage. No abdominal pain with palpation. Positive bowel sounds. SKIN: Ecchymoses over upper extremities. Poor skin turgor. NEURO: 2 through 12 intact. PSYCH: Alert and oriented x3. Very pleasant. LABORATORY DATA: Labs dated 04/22/2017: WBC is 12.5, hemoglobin 12, hematocrit 36, platelets 282. Sodium 04/18/2017 was was 124, 04/22 it was 122. Potassium 5.4. Chloride 75. Carbon dioxide 20. Anion gap 7. Creatinine 0.8. Glucose 147. Alkaline phosphatase 313. Total protein 5.6. Albumin is 2.6. CA-19-19 from 04/18/2017 is 2461. PROCEDURES TODAY: Abscess drain, fluoroscopy. IMPRESSION: Surgical Adriel-Larkin drain is plugged. Anterior midline abscess drained. Cavity communicates with the intrahepatic biliary system and with jejunum. Contrast drains directly from the abscess cavity into the jejunum while contrast in the biliary system drains out very slowly. It is unclear if this represents 2 separate fistulas. ASSESSMENT AND PLAN: 1. Hyponatremia: DDx: dehydration, Bactrim, decreased solute intake. Does appear dry on exam with some LE edema which suspect more to hyoalbuminemia. Repeating CMP, urine osmolality and urine lytes. Will add Ensure, regular diet. Will await labs to determine to give IV fluids. Stop Bactrim. 2. Citrobacter bacteremia/liver abscesses: followed closely by Infectious Disease. Stop Bactrim and change to Levaquin, Flagyl. Add Micafungin with yeast on recent culture. 3. Pancreatic cancer, status post Whipple. Positive margins per family, followed closely by Dr. Scott. 4. Leukocytosis: This was noted yesterday. Patient is currently afebrile. Repeating today. Will culture if positive. 5. Deep vein thrombosis prophylaxis, Lovenox. 6. Diet regular. DISPOSITION: Patient warrants inpatient admission given acute hyponatremia: Liver abscess and concern for fungal infection. Continue IV antifungals, antibiotics and serial labs. /[id number]/MODL MTDD
[2017-04-23 20:06] LABS: INR 1.43 (0.83-1.16); PROTIME(PATIENT) 17.4 SEC (12.0-15.0)
[2017-04-23 20:07] LABS: HEMATOCRIT 32.3 % (40.0-51.0); HEMOGLOBIN 11.1 g/dL (13.7-17.5); MEAN CELL HEMOGLOBIN 29.6 pg (27.9-34.1); MEAN CELL HEMOGLOBIN CONCENTR. 34.4 g/dL (32.4-36.7); MEAN CELL VOLUME 86.1 fL (81.5-99.8); RED BLOOD CELL COUNT 3.75 10^6/uL (4.40-6.38); RED CELL DISTRIBUTION WIDTH 16.3 % (11.5-15.2)
[2017-04-23 20:14] LABS: ALANINE AMINOTRANSFERASE 51 IU/L (21-72); ALBUMIN 2.4 g/dL (3.5-5.0); ALKALINE PHOSPHATASE 328 IU/L (38-126); ANION GAP 8 mEq/L (8-16); ASPARTATE AMINOTRANSFERASE 58 IU/L (17-59); BILIRUBIN,TOTAL 0.9 mg/dL (0.1-1.4); CALCIUM 8.2 mg/dL (8.5-10.4); CARBON DIOXIDE 19 mEq/l (22-31); CHLORIDE 99 mEq/L (97-110); CREATININE 0.7 mg/dL (0.7-1.3); GLOMERULAR FILTRATION RATE > 60; GLUCOSE 102 mg/dL (70-100); POTASSIUM 4.7 mEq/L (3.5-5.2); SODIUM 126 mEq/L (134-144)
[2017-04-23] MEDS ORDERED: traZODone 50 MG TAB PO PRN (20:43)
[2017-04-23] MEDS: MICAFUNGIN NA 100 MG in NS 100 ML IV SCH (20:47)
[2017-04-23] MEDS: metroNIDAZOLE 500 MG TAB PO SCH ×2 (20:47→22:10)
[2017-04-23] MEDS: MELATONIN 3 MG TAB PO SCH (22:08)
[2017-04-23] MEDS ORDERED: NS 1,000 ML IV SCH (22:45)
[2017-04-24] MEDS: metroNIDAZOLE 500 MG TAB PO SCH ×3 (05:01→21:05)
[2017-04-24 05:48] LABS: HEMATOCRIT 30.9 % (40.0-51.0); HEMOGLOBIN 10.8 g/dL (13.7-17.5); MEAN CELL HEMOGLOBIN 29.9 pg (27.9-34.1); MEAN CELL VOLUME 85.6 fL (81.5-99.8); RED BLOOD CELL COUNT 3.61 10^6/uL (4.40-6.38); RED CELL DISTRIBUTION WIDTH 16.2 % (11.5-15.2)
[2017-04-24] MEDS ORDERED: HYDROmorphONE/DILAUDID 1 MG/ML SYR IVP ONE (14:48)
[2017-04-24] MEDS ORDERED: LORazepam 2 MG/ML INJ IVP ONE (14:48)
--- NOTE | 2017-04-24 14:58 | PCMIDPN ---
Assessment/Plan: Assessment/Plan: 1. 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 krusei -Surgical drain (left) to come out since not draining anything -New drain still draining, will follow output. Pt also with Peritoneal catheter as well to help with Ascites -Continue current antibiotics while cultures mature further. -Blood cx pending -Long discussion with patient, family at bedside. -Care coordinated with Dr. Brownlee. Caterina ewing micafunin Subjective: In brief, Patient with history of Pancreatic cancer, s/p Whipple. Complicated by left hepatic necrosis, and right hepatic abscess and Bacteremia due to Citrobacter. Had been on prolonged course of Invanz therapy with resolution of right hepatic abscess. Changed over to Bactrim in February after he developed a subcutanous abscess involving part of his incision site. Cx from that and the left surgical drain that has been in place since September grew out Citrobacter, stenotrophomonas. New abdominal drain was place on 04/19/17 to help with the loculated abscess collection. Cx from that is growing Citrobacter again but now also non-albicans yeast, now identified as C. krusei. Left surgical drain isn't draining out much over last couple of weeks. afebrile. feels better today overal. less nausea. still with intermittent right abdomen pain. some of this pain is better when he eats. having hard time eating much food. Denies sob. Objective: Vital Signs Temp Pulse Resp BP Pulse Ox 36.6 C 79 16 100/63 95 04/24/17 08:08 04/24/17 11:34 04/24/17 11:34 04/24/17 11:34 04/24/17 11:34 Laboratory Results 04/24/17 04:55 04/23/17 19:25 04/23/17 04/24/17 04/25/17 05:59 05:59 05:59 Intake Total 1052 Output Total 1400 1000 Balance -1400 52 - Physical Exam General Appearance: alert, no apparent distress, other (thin appearing male) Respiratory: lungs clear, other (mild decreased bs at right base) Cardiac/Chest: regular rate, rhythm Extremities: No swelling Abdomen: normal bowel sounds, soft, distended, other (ascitis. mild tenderness right abdomen) Skin: No erythema - Time Spent With Patient Time Spent with Patient: greater than 35 minutes Time Spent with Patient: Greater than 35 minutes spent on this patients care, greater than 50% of time spent counseling, educating, and coordinating care regarding the above mentioned plan. ICD10 Worksheet Patient Problems: Problems Problem Status Onset Biliary obstruction due to cancer Acute Liver abscess Acute bi Acute
--- NOTE | 2017-04-24 16:08 | SOAPPROG ---
DELIA Progress Note Assessment/Plan: Assessment: SEEN TODAY AFTER LEFT LOBE LIVER ABSCESS DRAINAGE/FILMS SHOW ABSCESS COMMUNICATION WITH THE BILIARY TREE WHICH SUBSEQUENTLY DRAINED INTO OUR A CHOLEDOCHAL JEJUNOSTOMY/ OLD DRAIN REMOVED ABDOMEN SOFT, ASCITES DOWN/WOUND OKAY WITHOUT MASSES Plan: CONTINUE LEFT LIVER DRAIN 04/24/17 16:06 Objective: Vital Signs Temp Pulse Resp BP Pulse Ox 36.7 C 80 18 101/66 96 04/24/17 15:32 04/24/17 15:32 04/24/17 15:32 04/24/17 15:32 04/24/17 15:32 Laboratory Results 04/24/17 04:55 04/23/17 19:25 04/23/17 04/24/17 04/25/17 05:59 05:59 05:59 Intake Total 1052 Output Total 1400 1000 Balance -1400 52 PT 17.4 SEC (12.0-15.0) H 04/23/17 19:25 INR 1.43 (0.83-1.16) H 04/23/17 19:25 ICD10 Worksheet Patient Problems: Problems Problem Status Onset Biliary obstruction due to cancer Acute Liver abscess Acute bi Acute
[2017-04-24] MEDS: MICAFUNGIN NA 100 MG in NS 100 ML IV SCH (17:49)
--- NOTE | 2017-04-24 18:08 | HOSPPROG ---
Hospitalist Progress Note Assessment/Plan: DIAGNOSES: -Hyponatremia, hypovolemic with poor intake -Abdominal pains -Constipation -Ongoing drainage with hepatic phlegmon after hepatic infarct following Whipple procedure -Pancreatic carcinoma status post Whipple -recent history of hepatic abscess with bacteremia, Remains on antibiotics PLANS: - I have discussed the patient at length in detail with Dr. Robison today -Continue IV hydration with saline, diet as tolerated with liberal salt -Recheck sodium in a.m. -Agree with change in antibiotics as per Dr. Lenz -I talked at length with the patient and his family about some diet changes that may be helpful. -He has had fair bit of difficulty with laxative medications in the past but we may be able to try some different medications to help with his constipation issues -He may need intermittent outpatient saline hydration intravenously to keep him hydrated and electrolytes in range until he recovers better SUBJECTIVE: feels better energy today better appetite and eating a little bit better No change in abdominal discomfort today No nausea No other new symptoms The patient and family describes to me that he has had quite a bit of trouble keeping hydrated at home due to a feeling of early satiety with fluids, and that his constipation and nausea issues typically get a lot worse once he starts getting dehydrated. His constipation has been treated with certain laxatives in the past including MiraLax and 1 other. The MiraLax seems to cause nausea, can't remember what the other medicine was but he also did not tolerate that very well. It sounded like it was a stimulant type laxative and caused a lot of cramping OBJECTIVE Vitals reviewed: stable without fever Exam: alert oriented skin warm dry color ok Skin turgor poor and oral mucosa is still dry resps not labored lungs clear BSs heart regular abd soft nondistended nontender, bowel sounds present limbs warm, no edema iv site ok Laboratory data: no chemistries on labs today, white blood cell count improved Urine sodium low at 6 Objective: Vital Signs Temp Pulse Resp BP Pulse Ox 36.7 C 80 18 101/66 96 04/24/17 15:32 04/24/17 15:32 04/24/17 15:32 04/24/17 15:32 04/24/17 15:32 Laboratory Results 04/24/17 04:55 04/23/17 19:25 04/23/17 04/24/17 04/25/17 06:59 06:59 06:59 Intake Total 1452 Output Total 1400 1200 Balance -1400 252 PT 17.4 SEC (12.0-15.0) H 04/23/17 19:25 INR 1.43 (0.83-1.16) H 04/23/17 19:25 - Time Spent With Patient Time Spent with Patient: greater than 35 minutes Time Spent with Patient: Greater than 35 minutes spent on this patients care, greater than 50% of time spent counseling, educating, and coordinating care regarding the above mentioned plan. ICD10 Worksheet Patient Problems: Problems Problem Status Onset Biliary obstruction due to cancer Acute Liver abscess Acute bi Acute
[2017-04-24] MEDS: VANCOMYCIN HCL/NORMAL SALINE 250 ML IV SCH (21:05)
[2017-04-24] MEDS: MELATONIN 3 MG TAB PO SCH (21:06)
[2017-04-25 05:11] LABS: % IMMATURE GRANULYOCYTES 0.4 % (0.0-1.1); ABSOLUTE IMMATURE GRANULOCYTES 0.04 10^3/uL (0.00-0.10); ADD DIFF? NO; ADD MORPH? NO; ADD SCAN? NO; ATYPICAL LYMPHOCYTE FLAG 0 (0-99); FRAGMENT RBC FLAG 20 (0-99); HEMATOCRIT 35.4 % (40.0-51.0); HEMOGLOBIN 12.1 g/dL (13.7-17.5); LEFT SHIFT FLG 0 (0-99); LIPEMIA HEMOLYSIS FLAG 90 (0-99); MEAN CELL HEMOGLOBIN 29.8 pg (27.9-34.1); MEAN CELL HEMOGLOBIN CONCENTR. 34.2 g/dL (32.4-36.7); MEAN CELL VOLUME 87.2 fL (81.5-99.8); MEAN PLATELET VOLUME 8.9 fL (8.7-11.7); PLATELET CLUMPS FLAG 0 (0-99); PLATELET COUNT 232 10^3/uL (150-400); RED BLOOD CELL COUNT 4.06 10^6/uL (4.40-6.38); RED CELL DISTRIBUTION WIDTH 16.4 % (11.5-15.2)
[2017-04-25] MEDS: NS 1,000 ML IV SCH ×2 (05:24→17:23)
[2017-04-25] MEDS: metroNIDAZOLE 500 MG TAB PO SCH ×3 (05:25→21:29)
[2017-04-25 05:36] LABS: ANION GAP 7 mEq/L (8-16); CALCIUM 8.2 mg/dL (8.5-10.4); CARBON DIOXIDE 20 mEq/l (22-31); CHLORIDE 103 mEq/L (97-110); CREATININE 0.7 mg/dL (0.7-1.3); GLOMERULAR FILTRATION RATE > 60; GLUCOSE 112 mg/dL (70-100); POTASSIUM 4.6 mEq/L (3.5-5.2); SODIUM 130 mEq/L (134-144)
[2017-04-25] MEDS: VANCOMYCIN HCL/NORMAL SALINE 250 ML IV SCH ×2 (08:55→21:29)
--- NOTE | 2017-04-25 15:09 | PCMIDPN ---
Assessment/Plan: Assessment: Enterococcal bacteremia in patient with pancreatic cancer status post Whipple disease. This likely reflects ascending biliary tract etiology of infection. Patient remains on Levaquin, Flagyl and now micafungin secondary to Prema glabrata found in recent chronic abdominal abscess drainage. Covered with vancomycin for enterococcal infection. The enterococcus casseliflavis species tends to have low level vancomycin resistance due to Van C gene. Mics very between 2 and 4 mcg per mL. Will continue vancomycin in this patient given the fact that he looks better and feels better and will try to achieve somewhat higher trough levels. Plan: 1. Continue vancomycin monotherapy. 2. Check trough levels prior to 4th dose. Shoot for trough levels closer to 15 than 10. 3. Recheck blood cultures. Subjective: Patient is resting more comfortably then he has been. He states that he is able to lay on his side for the 1st time in weeks. No new complaints. No fevers or chills. Objective: Vancomycin #2 Levaquin Flagyl Micafungin #2 Vital Signs Temp Pulse Resp BP Pulse Ox 36.3 C 78 18 101/51 L 96 04/25/17 11:00 04/25/17 11:00 04/25/17 11:00 04/25/17 11:00 04/25/17 11:00 Microbiology 04/23/17 20:05 Blood Panel (PCR) - Final Blood Enterococcus Species Laboratory Results 04/25/17 04:55 04/25/17 04:55 04/24/17 04/25/17 04/26/17 05:59 05:59 05:59 Intake Total 1452 Output Total 1400 2155 Balance -1400 -193 - Physical Exam General Appearance: WD/WN, thin, non-toxic, other (Chronically ill-appearing) Respiratory: lungs clear, normal breath sounds, No respiratory distress Cardiac/Chest: regular rate, rhythm, No tachycardia Abdomen: non-tender, soft, No mass Skin: normal color, warm/dry, No rash Neuro/Psych: alert, normal mood/affect, oriented x 3 ICD10 Worksheet Patient Problems: Problems Problem Status Onset Biliary obstruction due to cancer Acute Liver abscess Acute bi Acute
--- NOTE | 2017-04-25 17:11 | HOSPPROG ---
Hospitalist Progress Note Assessment/Plan: DIAGNOSES: -Hyponatremia, hypovolemic with poor intake -Abdominal pains -Constipation -Ongoing drainage with hepatic phlegmon after hepatic infarct following Whipple procedure -Pancreatic carcinoma status post Whipple -recent history of hepatic abscess with bacteremia, Remains on antibiotics PLANS: -Continue IV hydration with saline, diet as tolerated with liberal salt -Recheck sodium in a.m. -Agree with change in antibiotics as per Dr. Robison -I talked at length with the patient and his family about some diet changes that may be helpful. -He has had fair bit of difficulty with laxative medications in the past but we may be able to try some different medications to help with his constipation issues -He may need intermittent outpatient saline hydration intravenously to keep him hydrated and electrolytes in range until he recovers better SUBJECTIVE: feels better again today, moving his bowels better, eating a little bit better, no abdominal pain still notably weaker than at his baseline OBJECTIVE Vitals reviewed: stable without fever Exam: alert oriented skin warm dry color ok Skin turgor remains poor resps not labored lungs clear BSs heart regular abd soft nondistended nontender, bowel sounds present limbs warm, no edema iv site ok Laboratory data: sodium now up to 130 Objective: Vital Signs Temp Pulse Resp BP Pulse Ox 36.4 C 79 18 105/60 97 04/25/17 15:10 04/25/17 15:10 04/25/17 15:10 04/25/17 15:10 04/25/17 15:10 Microbiology 04/23/17 20:05 Blood Panel (PCR) - Final Blood Enterococcus Species Laboratory Results 04/25/17 04:55 04/25/17 04:55 04/24/17 04/25/17 04/26/17 06:59 06:59 06:59 Intake Total 1452 Output Total 1400 2155 5 Balance -1400 -703 -5 PT 17.4 SEC (12.0-15.0) H 04/23/17 19:25 INR 1.43 (0.83-1.16) H 04/23/17 19:25 ICD10 Worksheet Patient Problems: Problems Problem Status Onset Biliary obstruction due to cancer Acute Liver abscess Acute bi Acute
[2017-04-25] MEDS: MICAFUNGIN NA 100 MG in NS 100 ML IV SCH (17:31)
[2017-04-25] MEDS: MELATONIN 3 MG TAB PO SCH (21:29)
[2017-04-26 05:25] LABS: % IMMATURE GRANULYOCYTES 0.8 % (0.0-1.1); ABSOLUTE IMMATURE GRANULOCYTES 0.08 10^3/uL (0.00-0.10); ADD DIFF? NO; ADD MORPH? NO; ADD SCAN? NO; ATYPICAL LYMPHOCYTE FLAG 10 (0-99); FRAGMENT RBC FLAG 0 (0-99); HEMATOCRIT 33.6 % (40.0-51.0); HEMOGLOBIN 11.7 g/dL (13.7-17.5); LEFT SHIFT FLG 0 (0-99); LIPEMIA HEMOLYSIS FLAG 90 (0-99); MEAN CELL HEMOGLOBIN 29.9 pg (27.9-34.1); MEAN CELL HEMOGLOBIN CONCENTR. 34.8 g/dL (32.4-36.7); MEAN CELL VOLUME 85.9 fL (81.5-99.8); MEAN PLATELET VOLUME 8.8 fL (8.7-11.7); PLATELET CLUMPS FLAG 0 (0-99); PLATELET COUNT 183 10^3/uL (150-400); RED BLOOD CELL COUNT 3.91 10^6/uL (4.40-6.38); RED CELL DISTRIBUTION WIDTH 16.4 % (11.5-15.2)
[2017-04-26] MEDS: metroNIDAZOLE 500 MG TAB PO SCH ×3 (05:41→21:18)
[2017-04-26] MEDS: NS 1,000 ML IV SCH ×2 (05:41→17:46)
[2017-04-26 05:48] LABS: ALANINE AMINOTRANSFERASE 58 IU/L (21-72); ALBUMIN 2.3 g/dL (3.5-5.0); ALKALINE PHOSPHATASE 338 IU/L (38-126); ANION GAP 9 mEq/L (8-16); ASPARTATE AMINOTRANSFERASE 59 IU/L (17-59); BILIRUBIN-CONJUGATED 0.5 mg/dL (0.0-0.5); BILIRUBIN-UNCONJUGATED 0.5 mg/dL (0.0-1.1); CALCIUM 8.2 mg/dL (8.5-10.4); CARBON DIOXIDE 14 mEq/l (22-31); CHLORIDE 106 mEq/L (97-110); CREATININE 0.6 mg/dL (0.7-1.3); GLOMERULAR FILTRATION RATE > 60; GLUCOSE 111 mg/dL (70-100); POTASSIUM 4.4 mEq/L (3.5-5.2); SODIUM 129 mEq/L (134-144); TOTAL PROTEIN 4.8 g/dL (6.3-8.2)
[2017-04-26] MEDS: VANCOMYCIN HCL/NORMAL SALINE 250 ML IV SCH (09:03)
--- NOTE | 2017-04-26 16:27 | PCMIDPN ---
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 Prior abdominal cultures polymicrobial including Citrobacter and Prema krusei. Continue levofloxacin, metronidazole and micafungin. Will discontinue vancomycin and begin ampicillin based on preliminary susceptibility results. Repeat blood cultures to ensure clearance of bacteremia. Once this has been determined, will need PICC line to complete at least 2 week course of therapy for enterococcal bacteremia. 04/26/17 16:24 Subjective: Patient feels better. No abdominal pain. Objective: Vital Signs Temp Pulse Resp BP Pulse Ox 36.4 C 75 20 116/77 97 04/26/17 16:00 04/26/17 16:00 04/26/17 16:00 04/26/17 16:00 04/26/17 16:00 Microbiology 04/23/17 20:05 Blood Panel (PCR) - Final Blood Enterococcus Species Laboratory Results 04/26/17 05:02 04/26/17 05:02 04/25/17 04/26/17 04/27/17 05:59 05:59 05:59 Intake Total 1452 4340 Output Total 2155 1605 550 Balance -703 2735 -550 Vancomycin # 3 micafungin # 3 oral levofloxacin and metronidazole Blood cultures 1/2 sets Enterococcus casselifavus preliminarily susceptible to ampicillin - Physical Exam General Appearance: alert, no apparent distress EENT: No scleral icterus, No thrush Cardiac/Chest: regular rate, rhythm Abdomen: non-tender, No distended Skin: No embolic lesions ICD10 Worksheet Patient Problems: Problems Problem Status Onset Biliary obstruction due to cancer Acute Liver abscess Acute bi Acute
--- NOTE | 2017-04-26 16:46 | HOSPPROG ---
Hospitalist Progress Note Assessment/Plan: DIAGNOSES: - Ongoing treatment of Enterococcal Bacteremia, due to abd wall abscess and jejunal fistula -Hyponatremia, hypovolemic with poor intake, improving on therapy -Abdominal pains -Constipation -Ongoing drainage with hepatic phlegmon after hepatic infarct following Whipple procedure -Pancreatic carcinoma status post Whipple w multiple complications -recent history of hepatic abscess with bacteremia, Remains on antibiotics PLANS: -Continue IV hydration with saline, diet as tolerated with liberal salt -Recheck sodium in a.m. -Agree with change in antibiotics as per Dr. Macias -He may need intermittent outpatient saline hydration intravenously to keep him hydrated and electrolytes in range until he recovers better SUBJECTIVE: feels better again today, moving his bowels better, eating a little bit better, no abdominal pain still notably weaker than at his baseline OBJECTIVE Vitals reviewed: stable without fever Exam: alert oriented skin warm dry color ok Skin turgor remains poor resps not labored lungs clear BSs heart regular abd soft nondistended nontender, bowel sounds present limbs warm, no edema iv site ok Objective: Vital Signs Temp Pulse Resp BP Pulse Ox 36.4 C 75 20 116/77 97 04/26/17 16:00 04/26/17 16:00 04/26/17 16:00 04/26/17 16:00 04/26/17 16:00 Microbiology 04/23/17 20:05 Blood Panel (PCR) - Final Blood Enterococcus Species Laboratory Results 04/26/17 05:02 04/26/17 05:02 04/25/17 04/26/17 04/27/17 06:59 06:59 06:59 Intake Total 1452 4340 Output Total 2155 1605 550 Balance -703 2735 -550 PT 17.4 SEC (12.0-15.0) H 04/23/17 19:25 INR 1.43 (0.83-1.16) H 04/23/17 19:25 ICD10 Worksheet Patient Problems: Problems Problem Status Onset Biliary obstruction due to cancer Acute Liver abscess Acute bi Acute
[2017-04-26] MEDS: AMPICILLIN SODIUM 2 GM in NS 100 ML IV SCH ×2 (17:24→23:51)
[2017-04-26] MEDS: MICAFUNGIN NA 100 MG in NS 100 ML IV SCH (18:52)
[2017-04-26] MEDS: MELATONIN 3 MG TAB PO SCH (21:18)
[2017-04-26] MEDS: ZOLPIDEM TARTRATE 5 MG TAB PO PRN (23:50)
[2017-04-27] MEDS: metroNIDAZOLE 500 MG TAB PO SCH ×3 (05:04→20:49)
[2017-04-27] MEDS: AMPICILLIN SODIUM 2 GM in NS 100 ML IV SCH ×2 (05:05→12:20)
[2017-04-27 05:57] LABS: ANION GAP 7 mEq/L (8-16); CALCIUM 8.1 mg/dL (8.5-10.4); CARBON DIOXIDE 15 mEq/l (22-31); CHLORIDE 107 mEq/L (97-110); CREATININE 0.6 mg/dL (0.7-1.3); GLOMERULAR FILTRATION RATE > 60; GLUCOSE 105 mg/dL (70-100); POTASSIUM 4.5 mEq/L (3.5-5.2); SODIUM 129 mEq/L (134-144)
[2017-04-27] MEDS: NS 1,000 ML IV SCH ×2 (07:56→23:35)
--- NOTE | 2017-04-27 16:34 | PCMIDPN ---
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 Isolate is susceptible to daptomycin. Will discontinue ampicillin and begin daptomycin daily. Check baseline CPK with use of daptomycin. Risk of myositis or pulmonary hypersensitivity pneumonitis were discussed with patient. Repeat blood cultures are pending to assess for clearing of bacteremia. Continue levofloxacin, metronidazole, and micafungin targeting other previously isolated pathogens. 04/27/17 16:31 Subjective: Patient without specific complaints other than abdominal discomfort with use of Ambien. Objective: Vital Signs Temp Pulse Resp BP Pulse Ox 36.4 C 83 16 118/77 98 04/27/17 15:46 04/27/17 15:46 04/27/17 15:46 04/27/17 15:46 04/27/17 15:46 Microbiology 04/23/17 20:05 Blood Panel (PCR) - Final Blood Enterococcus Species Laboratory Results 04/26/17 05:02 04/27/17 04:55 04/26/17 04/27/17 04/28/17 05:59 05:59 05:59 Intake Total 4340 920 400 Output Total 1605 1225 15 Balance 2735 -305 385 Ampicillin # 2 Levofloxacin/metronidazole micafungin #4 Enterococcus casseliflavus resistant to both ampicillin and vancomycin; isolate is susceptible to daptomycin - Physical Exam General Appearance: alert, no apparent distress EENT: No scleral icterus, No conjunctival petechiae Cardiac/Chest: regular rate, rhythm Extremities: No inflammation Abdomen: non-tender, other ( clear yellow output from left-sided BRAULIO bulb), No distended Skin: No embolic lesions ICD10 Worksheet Patient Problems: Problems Problem Status Onset Biliary obstruction due to cancer Acute Liver abscess Acute bi Acute
[2017-04-27] MEDS: NS IV SCH (17:19)
[2017-04-27] MEDS: DAPTOMYCIN IV SCH (17:19)
[2017-04-27] MEDS: MICAFUNGIN NA 100 MG in NS 100 ML IV SCH (18:31)
--- NOTE | 2017-04-27 19:36 | HOSPPROG ---
Hospitalist Progress Note Assessment/Plan: The patient is a male with PMH pancreatic cancer status post Whipple surgery who was admitted for liver abscess, jejunum fistula, hyponatremia. ASSESSMENT/PLAN: VRE bacteremia Jejunal fistula Liver abscess, recent Severe protein calorie malnutrition Hyponatremia, improved Constipation, resolved Abdominal pain History of pancreatic cancer, status post Whipple surgery Coagulopathy Metabolic acidosis Recurrent ascites, status post peritoneal catheter Anemia -infectious Disease managing IV antibiotics. -continue IV fluids -dietitian met with patient yesterday-patient is increasing caloric intake. -pain is controlled okay. Patient prefers cannabis for pain. -Ambien p.r.n. insomnia. VTE prophylaxis: SCDs, ambulate Code Status: Full code Status: Inpatient for greater than 2 midnight stay. Disposition: [facility] ____ SUBJECTIVE: Patient feels well today. No new complaints. Denies diarrhea. Has abdominal pain. Had insomnia last night, for which she took Ambien. OBJECTIVE: Physical Exam: General: The patient is a thin male who is alert and in no acute distress. HEENT: normocephalic, extraocular movements intact, conjunctivae clear. Mucous membranes moist. Neck: trachea midline, no visible masses. CV: +S1/S2, RRR, no MRG. Resp: unlabored, CTAB no RRW. Abd: soft and nondistended. Bowel sounds present. Musculoskeletal: Reduced muscle tone/bulk. Neuro: cranial nerves II XII grossly intact. Intact gross motor and sensory function. Psych: Appropriate mood and appropriate affect. Skin: No pallor. No petechiae. Heme/lymph: No peripheral edema at bilateral lower extremities. Labs/Imaging/Other Tests: Personally reviewed/interpreted. This patient is new to me. Reviewed patient's chart/records for this visit. Objective: Vital Signs Temp Pulse Resp BP Pulse Ox 36.4 C 83 16 118/77 98 04/27/17 15:46 04/27/17 15:46 04/27/17 15:46 04/27/17 15:46 04/27/17 15:46 Microbiology 04/23/17 20:05 Blood Panel (PCR) - Final Blood Enterococcus Species Laboratory Results 04/26/17 05:02 04/27/17 04:55 04/26/17 04/27/17 04/28/17 05:59 05:59 05:59 Intake Total 4340 920 1600 Output Total 1605 1225 15 Balance 2735 -305 1585 PT 17.4 SEC (12.0-15.0) H 04/23/17 19:25 INR 1.43 (0.83-1.16) H 04/23/17 19:25 ICD10 Worksheet Patient Problems: Problems Problem Status Onset Biliary obstruction due to cancer Acute Liver abscess Acute bi Acute
[2017-04-27] MEDS: MELATONIN 3 MG TAB PO SCH (20:49)
[2017-04-27] MEDS: ZOLPIDEM TARTRATE 5 MG TAB PO PRN (20:50)
[2017-04-28 05:13] LABS: HEMATOCRIT 32.8 % (40.0-51.0); HEMOGLOBIN 11.1 g/dL (13.7-17.5); MEAN CELL HEMOGLOBIN 29.6 pg (27.9-34.1); MEAN CELL HEMOGLOBIN CONCENTR. 33.8 g/dL (32.4-36.7); MEAN CELL VOLUME 87.5 fL (81.5-99.8); RED BLOOD CELL COUNT 3.75 10^6/uL (4.40-6.38); RED CELL DISTRIBUTION WIDTH 16.5 % (11.5-15.2)
[2017-04-28 05:34] LABS: ANION GAP 5 mEq/L (8-16); CALCIUM 7.9 mg/dL (8.5-10.4); CARBON DIOXIDE 17 mEq/l (22-31); CHLORIDE 108 mEq/L (97-110); CREATININE 0.5 mg/dL (0.7-1.3); GLOMERULAR FILTRATION RATE > 60; GLUCOSE 132 mg/dL (70-100); MAGNESIUM 1.7 mg/dL (1.6-2.3); POTASSIUM 4.3 mEq/L (3.5-5.2); SODIUM 130 mEq/L (134-144)
[2017-04-28] MEDS: metroNIDAZOLE 500 MG TAB PO SCH ×2 (06:04→14:27)
[2017-04-28] MEDS: NS 1,000 ML IV SCH ×2 (09:46→18:26)
[2017-04-28] MEDS: DAPTOMYCIN IV SCH (09:47)
[2017-04-28] MEDS: NS IV SCH (09:47)
--- NOTE | 2017-04-28 16:59 | HOSPPROG ---
Hospitalist Progress Note Assessment/Plan: The patient is a male with PMH pancreatic cancer status post Whipple surgery who was admitted for liver abscess, jejunum fistula, hyponatremia. ASSESSMENT/PLAN: VRE bacteremia Jejunal fistula and recent liver abscess History of pancreatic cancer, status post Whipple surgery Metabolic acidosis, non anion gap Hyponatremia, improved Severe protein calorie malnutrition Constipation, resolved Abdominal pain Elevated Ca19-9 Recurrent ascites, status post peritoneal catheter (path- no malignant cells) Coagulopathy Anemia Thrombocytopenia -infectious Disease managing IV antibiotics/antifungal. Pt and family willing to do IV antimicrobials outpatient w/ HHC. Will need a PICC line. -continue IV fluids -DDx NAGMA - RTA (consider distal RTA IV a/w hypoaldosteronism since pt had low sodium/high potassium earlier in the month), GI bicarb loss postop Whipple, D- lactic acidosis from short gut syndrome less likely but possible). -Checking urine electrolytes for UAG and urine pH. -Check VBG to confirm acidosis is compensated. -Told pt and his family that workup for this is reasonable to do on an outpatient basis, herrera since he is clinically stable. -Plt dropped today. No signs of bleeding or infection. Not on heparin. Query AE of Abx. Continue to follow. -patient is trying to increase caloric intake. -pain is controlled okay. Patient prefers cannabis for pain. -Leticia pro insomnia. VTE prophylaxis: SCDs, ambulate Code Status: Full code Status: Inpatient for greater than 2 midnight stay. Disposition: [facility] [place] - consider to DC to home w/ HHC and outpt IV Abx in the next 1-2 days. ____ SUBJECTIVE: Patient feels well today. No new complaints. Denies diarrhea. Has abdominal pain. OBJECTIVE: Physical Exam: General: The patient is a thin male who is alert and in no acute distress. HEENT: normocephalic, extraocular movements intact, conjunctivae clear. Mucous membranes moist. Neck: trachea midline, no visible masses. CV: +S1/S2, RRR, no MRG. Resp: unlabored, CTAB no RRW. Abd: soft and nondistended. Bowel sounds present. Peritoneal cath in place R abd. BRAULIO drain in place L abd w/ grayish, creamy, blood tinged fluid. Musculoskeletal: Reduced muscle tone/bulk. Neuro: cranial nerves II XII grossly intact. Intact gross motor and sensory function. Psych: Appropriate mood and appropriate affect. Skin: No pallor. No petechiae. Heme/lymph: No peripheral edema at bilateral lower extremities. Labs/Imaging/Other Tests: Personally reviewed/interpreted. Objective: Vital Signs Temp Pulse Resp BP Pulse Ox 36.6 C 86 16 108/71 96 04/28/17 14:24 04/28/17 14:24 04/28/17 14:24 04/28/17 14:24 04/28/17 14:24 Microbiology 04/23/17 20:05 Blood Panel (PCR) - Final Blood Enterococcus Species Laboratory Results 04/28/17 04:45 04/28/17 04:45 04/27/17 04/28/17 04/29/17 05:59 05:59 05:59 Intake Total 920 1600 Output Total 1225 115 330 Balance -305 1485 -330 PT 17.4 SEC (12.0-15.0) H 04/23/17 19:25 INR 1.43 (0.83-1.16) H 04/23/17 19:25 ICD10 Worksheet Patient Problems: Problems Problem Status Onset Biliary obstruction due to cancer Acute Liver abscess Acute bi Acute
--- NOTE | 2017-04-28 17:39 | PCMIDPN ---
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 Isolate is susceptible to daptomycin with RICCARDO of 4. Will continue daptomycin. Continue micafungin targeting Prema. Continue levofloxacin and metronidazole for gram-negative rods/mixed anaerobic jonny. If blood cultures remain negative , plan PICC line tomorrow with discharge planning For outpatient IV antibiotics. 04/28/17 17:36 Subjective: Mild abdominal pain prior to eating. Objective: Vital Signs Temp Pulse Resp BP Pulse Ox 36.6 C 86 16 108/71 96 04/28/17 14:24 04/28/17 14:24 04/28/17 14:24 04/28/17 14:24 04/28/17 14:24 Microbiology 04/23/17 20:05 Blood Panel (PCR) - Final Blood Enterococcus Species Laboratory Results 04/28/17 04:45 04/28/17 04:45 04/27/17 04/28/17 04/29/17 05:59 05:59 05:59 Intake Total 920 1600 Output Total 1225 115 330 Balance -305 1485 -330 Daptomycin # 2 Micafungin # 5 Levofloxacin /metronidazole Blood cultures x2 04/26/2017 no growth Laboratory Tests 04/26/17 04/27/17 08:15 17:50 Creatine Kinase 29 Vancomycin Trough 8.2 - Physical Exam General Appearance: alert, no apparent distress EENT: No scleral icterus, No thrush Cardiac/Chest: regular rate, rhythm Extremities: No inflammation Abdomen: non-tender, No distended ICD10 Worksheet Patient Problems: Problems Problem Status Onset Biliary obstruction due to cancer Acute Liver abscess Acute bi Acute
[2017-04-28] MEDS: MICAFUNGIN NA 100 MG in NS 100 ML IV SCH (18:13)
[2017-04-28] MEDS: MAGNESIUM OXIDE 400 MG TAB PO SCH (18:18)
[2017-04-28 18:26] LABS: PCO2 VENOUS 40 mmHg (40-44); PH VENOUS BLOOD 7.34 (7.31-7.42); PO2 VENOUS 43 mmHg (35-40); TCO2 VENOUS 22 mEq/L (23-27); VEN MEASURED OXYGEN SATURATION 72 % (65-75)
[2017-04-29] MEDS: MELATONIN 3 MG TAB PO SCH ×2 (00:01→21:28)
[2017-04-29] MEDS: ZOLPIDEM TARTRATE 5 MG TAB PO PRN (00:10)
[2017-04-29 03:04] LABS: RANDOM URINE POTASSIUM 9.8 mEq/L (0.5-35.0)
[2017-04-29] MEDS: metroNIDAZOLE 500 MG TAB PO SCH ×4 (05:21→21:28)
[2017-04-29 05:29] LABS: HEMATOCRIT 32.9 % (40.0-51.0); HEMOGLOBIN 10.9 g/dL (13.7-17.5); MEAN CELL HEMOGLOBIN 29.5 pg (27.9-34.1); MEAN CELL HEMOGLOBIN CONCENTR. 33.1 g/dL (32.4-36.7); MEAN CELL VOLUME 89.2 fL (81.5-99.8); RED BLOOD CELL COUNT 3.69 10^6/uL (4.40-6.38)
[2017-04-29 05:47] LABS: ALANINE AMINOTRANSFERASE 66 IU/L (21-72); ALBUMIN 1.9 g/dL (3.5-5.0); ALKALINE PHOSPHATASE 402 IU/L (38-126); ANION GAP 9 mEq/L (8-16); ASPARTATE AMINOTRANSFERASE 72 IU/L (17-59); BILIRUBIN,TOTAL 0.9 mg/dL (0.1-1.4); CALCIUM 7.8 mg/dL (8.5-10.4); CARBON DIOXIDE 15 mEq/l (22-31); CHLORIDE 110 mEq/L (97-110); CREATININE 0.5 mg/dL (0.7-1.3); GLOMERULAR FILTRATION RATE > 60; GLUCOSE 128 mg/dL (70-100); SODIUM 134 mEq/L (134-144); TOTAL PROTEIN 4.2 g/dL (6.3-8.2)
[2017-04-29] MEDS ORDERED: ALTEPLASE 2 MG VIAL IVP PRN (08:15)
[2017-04-29] MEDS: MAGNESIUM OXIDE 400 MG TAB PO SCH (09:07)
[2017-04-29] MEDS: NS IV SCH (09:07)
[2017-04-29] MEDS: DAPTOMYCIN IV SCH (09:07)
[2017-04-29] MEDS: NS 1,000 ML IV SCH (12:35)
[2017-04-29] MEDS ORDERED: NS 1,000 ML IV SCH (16:00)
[2017-04-29] MEDS ORDERED: NS 250 ML IV PRN (16:02)
--- NOTE | 2017-04-29 16:18 | HOSPPROG ---
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 Pancreatic cancer s/p whipple - prefers cannabis for pain Recurrent ascites - s/p leah drain, output >1L / day Hyponatremia - resolved with IVF's Metabolic acidosis - suspect starvation ketosis. Cont IVF's, follow. Volume depletion - inadequate intake to maintain hydration, IVF's as above. Severe protein calorie malnutrition - Little oral intake with little uop. Needs ongoing nutrition support. He is at risk for readmission from volume depletion. Will discuss with onc regarding home IVF's. Coagulopathy - in setting of liver dz as above, INR 1.4, no e/o bleeding DVT PPLX - high risk, recommend lovenox, declines, concerned abt bleeding risk. discussed risk/benefit. Full code Dispo - cont inpt. Not candidate for dc today due to poor oral intake, requiring IVF's. PT/OT evals planned. Subjective: Pt feels tired. He has been ambulating. notes very poor oral intake and is concerned about dehydration at home. No fevers. No pain. They report cola colored urine. Objective: Vital Signs Temp Pulse Resp BP Pulse Ox 36.6 C 80 18 117/82 H 97 04/29/17 15:27 04/29/17 15:27 04/29/17 15:27 04/29/17 15:27 04/29/17 15:27 Microbiology 04/23/17 20:05 Blood Culture - Final Blood Enterococcus Casseliflavus Blood Panel (PCR) - Final Enterococcus Species 04/23/17 19:25 Blood Culture - Final Blood Laboratory Results 04/29/17 05:18 04/29/17 05:18 04/28/17 04/29/17 04/30/17 05:59 05:59 05:59 Intake Total 1600 1150 Output Total 115 1550 Balance 1485 -400 PT 17.4 SEC (12.0-15.0) H 04/23/17 19:25 INR 1.43 (0.83-1.16) H 04/23/17 19:25 - Physical Exam Constitutional: chronically ill appearing Eyes: PERRL Ears, Nose, Mouth, Throat: moist mucous membranes Cardiovascular: regular rate and rhythym Respiratory: no respiratory distress, clear to auscultation Gastrointestinal: normoactive bowel sounds, soft, non-tender abdomen, other (BRAULIO drain with ~20 cc's output, leah drain inspected) Skin: warm Musculoskeletal: generalized weakness Neurologic: AAOx3 Psychiatric: interacting appropriately ICD10 Worksheet Patient Problems: Problems Problem Status Onset Biliary obstruction due to cancer Acute Liver abscess Acute bi Acute
[2017-04-29] MEDS: ENOXAPARIN 40 MG/0.4 ML SYR SC SCH (17:37)
--- NOTE | 2017-04-29 17:37 | SOAPPROG ---
SOAP Progress Note Assessment/Plan: Assessment: SEEN TODAY AFTER LEFT LOBE LIVER ABSCESS DRAINAGE/FILMS SHOW ABSCESS COMMUNICATION WITH THE BILIARY TREE WHICH SUBSEQUENTLY DRAINED INTO OUR A CHOLEDOCHAL JEJUNOSTOMY/ OLD DRAIN REMOVED ABDOMEN SOFT, ASCITES DOWN/WOUND OKAY WITHOUT MASSES Plan: CONTINUE LEFT LIVER DRAIN 04/24/17 16:06 04/29/17 17:35 AFEBRILE/AMAZINGLY COMFORTABLE/MINIMAL BRAULIO DRAINAGE/LARGE AMOUNT OF ASCITIC DRAINAGE/NONICTERIC/CA 19 9 ELEVATED/ALK PHOS 400 NEW PICC LINE FOR CONTINUE ANTIBIOTICS Objective: Vital Signs Temp Pulse Resp BP Pulse Ox 36.6 C 80 18 117/82 H 97 04/29/17 15:27 04/29/17 15:27 04/29/17 15:27 04/29/17 15:27 04/29/17 15:27 Microbiology 04/23/17 20:05 Blood Culture - Final Blood Enterococcus Casseliflavus Blood Panel (PCR) - Final Enterococcus Species 04/23/17 19:25 Blood Culture - Final Blood Laboratory Results 04/29/17 05:18 04/29/17 05:18 04/28/17 04/29/17 04/30/17 05:59 05:59 05:59 Intake Total 1600 1150 1750 Output Total 115 1550 Balance 1485 -400 1750 PT 17.4 SEC (12.0-15.0) H 04/23/17 19:25 INR 1.43 (0.83-1.16) H 04/23/17 19:25 ICD10 Worksheet Patient Problems: Problems Problem Status Onset Biliary obstruction due to cancer Acute Liver abscess Acute bi Acute
[2017-04-29] MEDS: MICAFUNGIN NA 100 MG in NS 100 ML IV SCH (18:03)
[2017-04-29 18:53] LABS: COLOR AMBER; LEUKOCYTE ESTERASE,URINE NEGATIVE (NEGATIVE); NITRITE,URINE NEGATIVE (NEGATIVE)
[2017-04-29 19:00] LABS: MUCUS TRACE /lpf (NONE-1+); RBC,URINE 50-182 /hpf (0-3)
[2017-04-30] MEDS: metroNIDAZOLE 500 MG TAB PO SCH ×3 (06:10→22:33)
[2017-04-30 06:19] LABS: HEMATOCRIT 33.2 % (40.0-51.0); HEMOGLOBIN 11.3 g/dL (13.7-17.5); MEAN CELL VOLUME 88.1 fL (81.5-99.8); RED BLOOD CELL COUNT 3.77 10^6/uL (4.40-6.38); RED CELL DISTRIBUTION WIDTH 17.1 % (11.5-15.2)
[2017-04-30 06:55] LABS: ALANINE AMINOTRANSFERASE 64 IU/L (21-72); ALBUMIN 1.8 g/dL (3.5-5.0); ALKALINE PHOSPHATASE 470 IU/L (38-126); ANION GAP 5 mEq/L (8-16); ASPARTATE AMINOTRANSFERASE 80 IU/L (17-59); BILIRUBIN,TOTAL 0.9 mg/dL (0.1-1.4); CARBON DIOXIDE 18 mEq/l (22-31); CHLORIDE 107 mEq/L (97-110); CREATININE 0.6 mg/dL (0.7-1.3); GLOMERULAR FILTRATION RATE > 60; GLUCOSE 124 mg/dL (70-100); POTASSIUM 3.9 mEq/L (3.5-5.2); SODIUM 130 mEq/L (134-144); TOTAL PROTEIN 4.4 g/dL (6.3-8.2)
[2017-04-30] MEDS: DAPTOMYCIN IV SCH (09:28)
[2017-04-30] MEDS: MAGNESIUM OXIDE 400 MG TAB PO SCH (09:28)
[2017-04-30] MEDS: NS IV SCH (09:28)
--- NOTE | 2017-04-30 10:21 | HOSPPROG ---
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 PICC in place, planning for home infusion therapy. Pancreatic cancer s/p whipple - prefers cannabis for pain. Personally reviewed 04/11 CT and discussed case with Dr. Hoyt. Per H&P, had positive margins after whipple. -Oncology to consult, ?recurrence of cancer and plan of care Recurrent ascites - s/p leah drain, output >1L / day Hyponatremia - likely due to low solute intake -start salt tabs -follow Metabolic acidosis - suspect starvation ketosis. Improved with IVF's. Volume depletion - inadequate intake to maintain hydration, poor uop -IV albumin today -consider prn NS boluses at home or at [facility] to prevent dehydration Severe protein calorie malnutrition - Little oral intake. Needs ongoing nutrition support. He is at risk for readmission from volume depletion. -nutrition consult Coagulopathy - in setting of liver dz as above, INR 1.4, no e/o bleeding FEN - low albumin, concern NS is just creating more ascites. Stop NS, try Albumin boluses prn as above. Nutrition consult. DVT PPLX - high risk, recommended lovenox, but declines, concerned abt bleeding risk. discussed risk/benefit. Cont SCD's, ambulation for now, readdress daily Full code Dispo - cont inpt. Not candidate for dc today due to poor oral intake, needs onc input / plan prior to dc. PT/OT ordered again, still waiting evals. Subjective: Pt doing ok. 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 He has not received chemo, thinks he has not had recurrence of cancer. Still poor oral intake. No fevers. No pain. Objective: Vital Signs Temp Pulse Resp BP Pulse Ox 36.3 C 82 16 101/69 96 04/30/17 07:24 04/30/17 07:24 04/30/17 07:24 04/30/17 07:24 04/30/17 07:24 Microbiology 04/23/17 20:05 Blood Culture - Final Blood Enterococcus Casseliflavus Blood Panel (PCR) - Final Enterococcus Species 04/23/17 19:25 Blood Culture - Final Blood Laboratory Results 04/30/17 06:15 04/30/17 06:15 04/29/17 04/30/17 05/01/17 05:59 05:59 05:59 Intake Total 1150 2250 Output Total 1550 1420 Balance -400 830 PT 17.4 SEC (12.0-15.0) H 04/23/17 19:25 INR 1.43 (0.83-1.16) H 04/23/17 19:25 - Physical Exam Constitutional: chronically ill appearing, cachectic Eyes: PERRL Ears, Nose, Mouth, Throat: moist mucous membranes Cardiovascular: regular rate and rhythym Respiratory: no respiratory distress, clear to auscultation Gastrointestinal: normoactive bowel sounds, soft, non-tender abdomen, distension Skin: warm Musculoskeletal: generalized weakness Neurologic: AAOx3 Psychiatric: interacting appropriately ICD10 Worksheet Patient Problems: Problems Problem Status Onset VRE (vancomycin-resistant Enterococci) Acute ~04/23/17 Biliary obstruction due to cancer Acute Liver abscess Acute bi Acute
[2017-04-30] MEDS ORDERED: ALBUMIN 5% 500 ML IV ONE (10:22)
--- NOTE | 2017-04-30 12:41 | PCMIDPN ---
Assessment/Plan: Assessment/Plan: 1. Abdominal abscess with fistula to jejunum, biliary: -ABdominal collection Cx from 04/19/17 currently with Citrobacter, lactobacillus , staph epi,c. krusei (resistant to fluconazole) -blood cx: / bottles with Enterococcus cassiflavus. -New drain (from 04/19/17) still draining, will follow output. Lower output today. If remains low, recommend f/u Ct and IR to see if can break up loculations to fascilitate additional drainage. -Pt also with Peritoneal catheter as well to help with Ascites -Continue current antibiotics. -Long discussion with patient, -Care coordinated with Dr. Gutiérrez 2. Enterococcus cassiflavus bacteremia;- - 1/4 bottles positive. - f/u blood cx from 04/26/17 ngtd - resistant to vanco and ampicillin - plan for at least 14 days of therapy Meds levquin-750 mg daily- 04/23/17 flagyl- 500mg q8- 04/23/17 micafunin-100mg daily - 04/23/17 dapto -425 mg daily - 04/27/17 Subjective: Afebrile. Sitting up in chair. c/o belly feeling full again despite draining ascites fluid earlier today. some loose stools. denies shortness of breath. not much draining from Jossy drain today althoug noted to have around 15-20cc over past two days. Objective: Vital Signs Temp Pulse Resp BP Pulse Ox 36.4 C 80 20 112/79 96 04/30/17 11:19 04/30/17 11:19 04/30/17 11:19 04/30/17 11:19 04/30/17 11:19 Microbiology 04/23/17 20:05 Blood Culture - Final Blood Enterococcus Casseliflavus Blood Panel (PCR) - Final Enterococcus Species 04/23/17 19:25 Blood Culture - Final Blood Laboratory Results 04/30/17 06:15 04/30/17 06:15 04/29/17 04/30/17 05/01/17 05:59 05:59 05:59 Intake Total 1150 2250 Output Total 1550 1420 Balance -400 830 - Physical Exam General Appearance: alert, no apparent distress, other (thin appearing male) Respiratory: lungs clear (mild course bs at right base) Cardiac/Chest: regular rate, rhythm Extremities: No swelling Abdomen: normal bowel sounds, non-tender, soft, distended, ascites, other (jossy drain with brownish material present. ) Skin: No erythema ICD10 Worksheet Patient Problems: Problems Problem Status Onset VRE (vancomycin-resistant Enterococci) Acute ~04/23/17 Biliary obstruction due to cancer Acute Liver abscess Acute bi Acute
--- NOTE | 2017-04-30 13:36 | SOAPPROG ---
SOAP Progress Note Assessment/Plan: Assessment: 1.) Hepatobiliary abscess, poly microbial with Citrobacter, lactobacillus, S. epi, Enterococcus, and C. krusei cxed from abscess cavity. Plans for ongoing antibiotics with Levaquin, Micafungin, metronidazole, Daptomycin noted. To have prolonged home ABx. May need further CT imaging w or w/o attempt at additional abscess drainage. Fistula into bowel noted. Expect that resolution of infection will be difficult due to complicated abscess fluid collection. 2.) Pancreatic Carcinoma, resected 10/10/16 with R1 resection, now with slow recovery and complications as noted above. Has not received and is not in condition to receive systemic treatment. Most recent scanning shows reactive mass that includes abscess. It would be difficult to distinguish recurrent malignancy locally from post op abscess and fibrosis. He is not a candidate for active medical therapy at this time. 3.) Recurring ascites- daily peritoneal drainage noted for palliative measures of sx. discomfort. 4.) Hepatobiliary drainage of abscess 5.) Protein calorie malnutrition related to above complications and protein losses from daily ascites removal. 6.) Intravascular vol. depletion from ascites drainage 7.) Anemia- multifactorial 8.) Hyponatremia, due to third spacing and removal of ascites, repetitively 9.) COPD 10.) Home care management - suggest 1500 mL daily IVF hydration with his daily antibiotics via R PICC line. 11.) Prognosis without cancer recurrence would be difficult based upon abscess managment and limited chance for curative management of abscess. Additionally, protein-calorie malnutrtion- multifactorial, is likely to become life threatening at some point. Will continue conversation with patient and his family to learn of their understanding of his disease process and prognosis. He indicated his steady decline in discussion at the bedside today. I have alerted his [facility] outpt. chart as to the hospitalization for infectious complications management. Will follow. Plan: See above discussion. 04/30/17 13:36 Subjective: Fair appetite, feels better with ascites drainage, no significant pain, N/V/ fever/chills/resp complaints Objective: Thin WM who looks older than his chronologic age. HEENT- bitemporal wasting, no icterus, no oral lesions Neck- supple Chest - clear anteriorly CVS- RSR, no extra HS ABD- distended with ascites, [place] drain exit site is NT and without erythema. BRAULIO drain to RUQ is intact/NT and draining cloudy yellow fluid BS+, difficult to discern HSM due to ascites EXT- RUE PICC line site is NT, LE thin with muscle wasting. See labs listed here Vital Signs Temp Pulse Resp BP Pulse Ox 36.4 C 80 20 112/79 96 04/30/17 11:19 04/30/17 11:19 04/30/17 11:19 04/30/17 11:19 04/30/17 11:19 Microbiology 04/23/17 20:05 Blood Culture - Final Blood Enterococcus Casseliflavus Blood Panel (PCR) - Final Enterococcus Species Laboratory Results 04/30/17 06:15 04/30/17 06:15 04/29/17 04/30/17 05/01/17 05:59 05:59 05:59 Intake Total 1150 2250 Output Total 1550 1420 Balance -400 830 PT 17.4 SEC (12.0-15.0) H 04/23/17 19:25 INR 1.43 (0.83-1.16) H 04/23/17 19:25 ICD10 Worksheet Patient Problems: Problems Problem Status Onset VRE (vancomycin-resistant Enterococci) Acute ~04/23/17 Biliary obstruction due to cancer Acute Liver abscess Acute bi Acute
[2017-04-30] MEDS: SODIUM CHLORIDE 1,000 MG TAB PO SCH (17:27)
[2017-04-30] MEDS: MICAFUNGIN NA 100 MG in NS 100 ML IV SCH (17:27)
[2017-04-30] MEDS: ZOLPIDEM TARTRATE 5 MG TAB PO PRN (22:33)
[2017-04-30] MEDS: MELATONIN 3 MG TAB PO SCH (22:33)
[2017-05-01] MEDS: metroNIDAZOLE 500 MG TAB PO SCH ×3 (05:48→22:14)
[2017-05-01 06:11] LABS: % IMMATURE GRANULYOCYTES 0.4 % (0.0-1.1); ABSOLUTE IMMATURE GRANULOCYTES 0.04 10^3/uL (0.00-0.10); ADD DIFF? NO; ADD MORPH? NO; ADD SCAN? NO; ATYPICAL LYMPHOCYTE FLAG 10 (0-99); FRAGMENT RBC FLAG 0 (0-99); HEMATOCRIT 31.4 % (40.0-51.0); HEMOGLOBIN 10.6 g/dL (13.7-17.5); LEFT SHIFT FLG 0 (0-99); LIPEMIA HEMOLYSIS FLAG 90 (0-99); MEAN CELL HEMOGLOBIN CONCENTR. 33.8 g/dL (32.4-36.7); MEAN PLATELET VOLUME 8.9 fL (8.7-11.7); PLATELET CLUMPS FLAG 10 (0-99); PLATELET COUNT 151 10^3/uL (150-400); RED BLOOD CELL COUNT 3.53 10^6/uL (4.40-6.38); RED CELL DISTRIBUTION WIDTH 17.2 % (11.5-15.2)
[2017-05-01 06:24] LABS: ALANINE AMINOTRANSFERASE 58 IU/L (21-72); ALKALINE PHOSPHATASE 440 IU/L (38-126); ANION GAP 6 mEq/L (8-16); ASPARTATE AMINOTRANSFERASE 71 IU/L (17-59); BILIRUBIN,TOTAL 1.2 mg/dL (0.1-1.4); CALCIUM 8.1 mg/dL (8.5-10.4); CARBON DIOXIDE 18 mEq/l (22-31); CHLORIDE 105 mEq/L (97-110); CREATININE 0.6 mg/dL (0.7-1.3); GLOMERULAR FILTRATION RATE > 60; GLUCOSE 117 mg/dL (70-100); SODIUM 129 mEq/L (134-144); TOTAL PROTEIN 4.4 g/dL (6.3-8.2)
[2017-05-01] MEDS: DAPTOMYCIN IV SCH (09:24)
[2017-05-01] MEDS: NS IV SCH (09:24)
[2017-05-01] MEDS: SODIUM CHLORIDE 1,000 MG TAB PO SCH ×3 (09:25→22:26)
[2017-05-01] MEDS: MAGNESIUM OXIDE 400 MG TAB PO SCH (09:25)
--- NOTE | 2017-05-01 11:45 | SOAPPROG ---
DELIA Progress Note Assessment/Plan: Assessment: SEEN TODAY AFTER LEFT LOBE LIVER ABSCESS DRAINAGE/FILMS SHOW ABSCESS COMMUNICATION WITH THE BILIARY TREE WHICH SUBSEQUENTLY DRAINED INTO OUR A CHOLEDOCHAL JEJUNOSTOMY/ OLD DRAIN REMOVED ABDOMEN SOFT, ASCITES DOWN/WOUND OKAY WITHOUT MASSES Plan: CONTINUE LEFT LIVER DRAIN 04/24/17 16:06 04/29/17 17:35 AFEBRILE/AMAZINGLY COMFORTABLE/MINIMAL BRAULIO DRAINAGE/LARGE AMOUNT OF ASCITIC DRAINAGE/NONICTERIC/CA 19 9 ELEVATED/ALK PHOS 400 NEW PICC LINE FOR CONTINUE ANTIBIOTICS 05/01/17 11:43 ALTHOUGH HE IS QUITE DEBILITATED AND WITH RECURRENT CANCER, HE COULD HAVE SURGICAL DEBRIDEMENT OF HIS LIVER IF THAT WOULD SIMPLIFY HIS CARE AND/ OR IMPROVE HIS FUTURE PROGNOSIS/ OTHERWISE NO REAL CHANGE Objective: Vital Signs Temp Pulse Resp BP Pulse Ox 36.4 C 93 16 93/65 L 95 05/01/17 08:00 05/01/17 08:00 05/01/17 08:00 05/01/17 08:00 05/01/17 08:00 Laboratory Results 05/01/17 05:51 05/01/17 05:51 04/30/17 05/01/17 05/02/17 05:59 05:59 05:59 Intake Total 2250 1400 Output Total 1420 Balance 830 1400 PT 17.4 SEC (12.0-15.0) H 04/23/17 19:25 INR 1.43 (0.83-1.16) H 04/23/17 19:25 ICD10 Worksheet Patient Problems: Problems Problem Status Onset VRE (vancomycin-resistant Enterococci) Acute ~04/23/17 Biliary obstruction due to cancer Acute Liver abscess Acute bi Acute
--- NOTE | 2017-05-01 13:08 | SOAPPROG ---
SOAP Progress Note Assessment/Plan: Assessment: 1.) Hepatobiliary abscess, poly microbial with Citrobacter, lactobacillus, S. epi, Enterococcus, and C. krusei cxed from abscess cavity. Plans for ongoing antibiotics with Levaquin, Micafungin, metronidazole, Daptomycin noted. To have prolonged home ABx. May need further CT imaging w or w/o attempt at additional abscess drainage. Fistula into bowel noted. Expect that resolution of infection will be difficult due to complicated abscess fluid collection. 2.) Pancreatic Carcinoma, resected 10/10/16 with R1 resection, now with slow recovery and complications as noted above. Has not received and is not in condition to receive systemic treatment. Most recent scanning shows reactive mass that includes abscess. It would be difficult to distinguish recurrent malignancy locally from post op abscess and fibrosis. He is not a candidate for active medical therapy at this time. 3.) Recurring ascites- daily peritoneal drainage noted for palliative measures of sx. discomfort. 4.) Hepatobiliary drainage of abscess 5.) Protein calorie malnutrition related to above complications and protein losses from daily ascites removal. As of today, he is eating full meals, with good protein content. Encouraged this diet and high protein and calorie supplements throughout the day. 6.) Intravascular vol. depletion from ascites drainage 7.) Anemia- multifactorial 8.) Hyponatremia, due to third spacing and removal of ascites, repetitively 9.) COPD 10.) Home care management - suggest 1500 mL daily IVF hydration with his daily antibiotics via R PICC line. 11.) Prognosis without cancer recurrence would be difficult based upon abscess managment and limited chance for curative management of abscess. Additionally, protein-calorie malnutrtion- multifactorial, is likely to become life threatening at some point. Will continue conversation with patient and his family to learn of their understanding of his disease process and prognosis. He indicated his steady decline in discussion at the bedside today. I have alerted his [facility] outpt. chart as to the hospitalization for infectious complications management. Will follow. Plan: See above discussion. Will recheck 05/02. Discharge as per other services. Would be a candidate for home care services, However, his level of care required precludes palliative only ( Hospice) care at this time. 05/01/17 13:08 Subjective: In good spirits with family at bedside. Had comfortable night, and has good appetite today. Has no new sx. Objective: VSS, afebrile as noted here. HEENT- bitemporal wasting noted. anicteric, no oral lesions Neck- supple Chest- clear anteriorly CVS- RSR, no extra HS ABD- soft, NT no mass or HSM. Ascites is diminished as of now. [place] drain and biliary drain are NT at the exit sites, and functioning. BS+ EXT- muscle wasting noted. Labs as noted here: Vital Signs Temp Pulse Resp BP Pulse Ox 36.4 C 93 16 93/65 L 95 05/01/17 08:00 05/01/17 08:00 05/01/17 08:00 05/01/17 08:00 05/01/17 08:00 Laboratory Results 05/01/17 05:51 05/01/17 05:51 04/30/17 05/01/17 05/02/17 05:59 05:59 05:59 Intake Total 2250 1400 480 Output Total 1420 Balance 830 1400 480 PT 17.4 SEC (12.0-15.0) H 04/23/17 19:25 INR 1.43 (0.83-1.16) H 04/23/17 19:25 ICD10 Worksheet Patient Problems: Problems Problem Status Onset VRE (vancomycin-resistant Enterococci) Acute ~04/23/17 Biliary obstruction due to cancer Acute Liver abscess Acute bi Acute
--- NOTE | 2017-05-01 16:20 | HOSPPROG ---
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 PICC in place, planning for home infusion therapy. Unclear if abscess is completely drained. Will d/w IR regarding drain study and/or repeat CT scan today. Dr. Guardado also considering surgical intervention. -will proceed with CT abd Pancreatic cancer s/p whipple 09/2016 - prefers cannabis for pain. Personally reviewed 04/11 CT and discussed case with Dr. Hoyt. Difficult to assess if recurrence of cancer vs complicated abscess / fibrotic lesion. Per H&P, had positive margins after whipple. Pt wishes to continue full interventions. -Oncology following, not a candidate for chemo -pt not interested in palliative consult, hopes to survive Recurrent ascites - s/p leah drain, output 1-2L / day Poor uop - giving albumin / lasix today Hyponatremia - likely due to low solute intake -start salt tabs -lasix may help -follow Metabolic acidosis - suspect starvation ketosis. Improved with IVF's and improved oral intake. Severe protein calorie malnutrition - Oral intake improving. Needs ongoing nutrition support. He is at risk for readmission from volume depletion. -nutrition following -will plan for prn NS boluses at home to maintain hydration Coagulopathy - in setting of liver dz as above, INR 1.4, no e/o bleeding DVT PPLX - high risk, lovenox resumed Full code Dispo - cont inpt. Dispo pending further evaluation of liver abscess status and need for drain readjustment or surgical intervention Subjective: Pt doing okay. Denies pain. Taking much better po, had ribs and drinking more. No fevers. Objective: Vital Signs Temp Pulse Resp BP Pulse Ox 36.5 C 93 18 82/66 L 96 05/01/17 16:00 05/01/17 16:00 05/01/17 16:00 05/01/17 16:00 05/01/17 16:00 Laboratory Results 05/01/17 05:51 05/01/17 05:51 04/30/17 05/01/17 05/02/17 05:59 05:59 05:59 Intake Total 2250 1400 480 Output Total 1420 Balance 830 1400 480 PT 17.4 SEC (12.0-15.0) H 04/23/17 19:25 INR 1.43 (0.83-1.16) H 04/23/17 19:25 - Physical Exam Constitutional: chronically ill appearing Eyes: PERRL Ears, Nose, Mouth, Throat: moist mucous membranes Cardiovascular: regular rate and rhythym Respiratory: no respiratory distress, clear to auscultation Gastrointestinal: normoactive bowel sounds, distension, other (non-tender, + fluid wave) Skin: warm Musculoskeletal: full muscle strength Neurologic: AAOx3 Psychiatric: interacting appropriately ICD10 Worksheet Patient Problems: Problems Problem Status Onset VRE (vancomycin-resistant Enterococci) Acute ~04/23/17 Biliary obstruction due to cancer Acute Liver abscess Acute bi Acute
[2017-05-01] MEDS ORDERED: FUROSEMIDE 20 MG/2 ML VIAL IVP ONE (16:23)
[2017-05-01] MEDS ORDERED: ALBUMIN 25% 200 ML IV ONE (16:23)
[2017-05-01] MEDS ORDERED: IOPAMIDOL (ISOVUE-300) 100 ML BTL ONE (17:27)
[2017-05-01] MEDS: MICAFUNGIN NA 100 MG in NS 100 ML IV SCH (18:23)
[2017-05-01] MEDS: ALBUMIN 25% 100 ML IV SCH (22:14)
[2017-05-01] MEDS: ZOLPIDEM TARTRATE 5 MG TAB PO PRN (22:14)
[2017-05-01] MEDS: MELATONIN 3 MG TAB PO SCH (22:14)
[2017-05-02] MEDS: ALBUMIN 25% 100 ML IV SCH ×2 (05:14→10:14)
[2017-05-02] MEDS: metroNIDAZOLE 500 MG TAB PO SCH ×3 (05:14→21:06)
[2017-05-02 05:45] LABS: % IMMATURE GRANULYOCYTES 0.6 % (0.0-1.1); ABSOLUTE IMMATURE GRANULOCYTES 0.05 10^3/uL (0.00-0.10); ADD DIFF? NO; ADD MORPH? NO; ADD SCAN? NO; ATYPICAL LYMPHOCYTE FLAG 0 (0-99); FRAGMENT RBC FLAG 0 (0-99); HEMATOCRIT 28.1 % (40.0-51.0); HEMOGLOBIN 9.8 g/dL (13.7-17.5); LEFT SHIFT FLG 0 (0-99); LIPEMIA HEMOLYSIS FLAG 90 (0-99); MEAN CELL HEMOGLOBIN 30.5 pg (27.9-34.1); MEAN CELL HEMOGLOBIN CONCENTR. 34.9 g/dL (32.4-36.7); MEAN CELL VOLUME 87.5 fL (81.5-99.8); MEAN PLATELET VOLUME 8.7 fL (8.7-11.7); PLATELET CLUMPS FLAG 0 (0-99); PLATELET COUNT 125 10^3/uL (150-400); RED BLOOD CELL COUNT 3.21 10^6/uL (4.40-6.38); RED CELL DISTRIBUTION WIDTH 17.3 % (11.5-15.2)
[2017-05-02 06:00] LABS: ANION GAP 6 mEq/L (8-16); CALCIUM 8.4 mg/dL (8.5-10.4); CARBON DIOXIDE 20 mEq/l (22-31); CHLORIDE 105 mEq/L (97-110); CREATININE 0.6 mg/dL (0.7-1.3); GLOMERULAR FILTRATION RATE > 60; GLUCOSE 100 mg/dL (70-100); POTASSIUM 4.1 mEq/L (3.5-5.2); SODIUM 131 mEq/L (134-144)
[2017-05-02] MEDS: SODIUM CHLORIDE 1,000 MG TAB PO SCH (08:24)
[2017-05-02] MEDS: MAGNESIUM OXIDE 400 MG TAB PO SCH (08:24)
[2017-05-02] MEDS: ENOXAPARIN 40 MG/0.4 ML SYR SC SCH (08:25)
[2017-05-02] MEDS: DAPTOMYCIN IV SCH (09:09)
[2017-05-02] MEDS: NS IV SCH (09:09)
--- NOTE | 2017-05-02 15:23 | SOAPPROG ---
SOAP Progress Note Assessment/Plan: Assessment: 1.) Hepatobiliary abscess, poly microbial with Citrobacter, lactobacillus, S. epi, Enterococcus, and C. krusei cxed from abscess cavity. Plans for ongoing antibiotics with Levaquin, Micafungin, metronidazole, Daptomycin noted. To have prolonged home ABx. Fistula into bowel noted. Expect that resolution of infection will be difficult due to complicated abscess fluid collection. 2.) Pancreatic Carcinoma, resected 10/10/16 with R1 resection, now with slow recovery and complications as noted above. Has not received and is not in condition to receive systemic treatment. Most recent scanning shows reactive mass that includes abscess. It would be difficult to distinguish recurrent malignancy locally from post op abscess and fibrosis. He is not a candidate for active medical therapy at this time. No chemotherapy planned. 3.) Recurring ascites- daily peritoneal drainage noted for palliative measures of sx. discomfort. 4.) Hepatobiliary drainage of abscess 5.) Protein calorie malnutrition related to above complications and protein losses from daily ascites removal. As of today, he is eating full meals, with good protein content. Encouraged this diet and high protein and calorie supplements throughout the day. 6.) Intravascular vol. depletion from ascites drainage 7.) Anemia- multifactorial 8.) Hyponatremia, due to third spacing and removal of ascites, repetitively 9.) COPD 10.) Home care management - suggest 1500 mL daily IVF hydration with his daily antibiotics via R PICC line. 11.) Prognosis without cancer recurrence would be difficult based upon abscess managment and limited chance for curative management of abscess. Additionally, protein-calorie malnutrtion- multifactorial, is likely to become life threatening at some point. Will continue conversation with patient and his family to learn of their understanding of his disease process and prognosis. He indicated his steady decline in discussion at the bedside today. I have alerted his [facility] outpt. chart as to the hospitalization for infectious complications management. Will follow. Plan: See above discussion. At this time, we have no additional diagnostic testing to suggest and no active cancer therapeutic intervention to offer. Discharge as per other services. Would be a candidate for home care services, However, his level of care required precludes palliative only ( Hospice) care at this time. Will follow intermittently. 05/02/17 15:23 Subjective: Pt continues to feel better and has continued improving appetite and food intake. Food intake (+) for high protein content. No new sx. Objective: As noted here, MARCIAL, is afebrile Gurvinder is asleep at time of rounding this afternoon ( 315 PM) His family is at the bedside and relates his progress. Labs noted here: Hgb 9.[address] scan noted, with pigtail drain in abscess cavity noted. Inflammatory/ reactive changes noted. Vital Signs Temp Pulse Resp BP Pulse Ox 36.6 C 87 20 92/63 L 96 05/02/17 08:00 05/02/17 08:00 05/02/17 08:00 05/02/17 08:00 05/02/17 08:00 Microbiology 04/26/17 18:10 Blood Culture - Final Blood 04/26/17 18:10 Blood Culture - Final Blood Laboratory Results 05/02/17 05:15 05/02/17 05:15 05/01/17 05/02/17 05/03/17 05:59 05:59 05:59 Intake Total 2100 1120 200 Output Total 3000 3310 1450 Balance -900 -2190 -1250 PT 17.4 SEC (12.0-15.0) H 04/23/17 19:25 INR 1.43 (0.83-1.16) H 04/23/17 19:25 ICD10 Worksheet Patient Problems: Problems Problem Status Onset VRE (vancomycin-resistant Enterococci) Acute ~04/23/17 Biliary obstruction due to cancer Acute Liver abscess Acute bi Acute
--- NOTE | 2017-05-02 15:34 | HOSPPROG ---
Hospitalist Progress Note Assessment/Plan: * Enterococcus casseliflavus bacteremia * Liver abscess vs. infected tumor necrosis - with fistula to biliary tree -polymicrobial - Levaquin, Dapto, Flagyl, Micafungin -d/w Dr. Dietz - she will review CT with Dr. Guardado -likely uncurable with drain/abx alone -Dr. Guardado considering surgery -unclear significance of new pneumoperitoneum -consider drain re-adjustment * Pancreatic cancer s/p Whipple with + margins -not chemo candidate at his point due to nutritional status -possible tumor recurrence at operative bed * Ascites s/p [place] drain - massive output daily * Hyponatremia -low urine sodium suggests hypovolemic -consider restart IVF - likely need to match ascites output * Severe protein calorie malnutrition * RLE edema - check US rule out DVT Subjective: no new complaints. Objective: Vital Signs Temp Pulse Resp BP Pulse Ox 36.6 C 87 20 92/63 L 96 05/02/17 08:00 05/02/17 08:00 05/02/17 08:00 05/02/17 08:00 05/02/17 08:00 Microbiology 04/26/17 18:10 Blood Culture - Final Blood 04/26/17 18:10 Blood Culture - Final Blood Laboratory Results 05/02/17 05:15 05/02/17 05:15 05/01/17 05/02/17 05/03/17 05:59 05:59 05:59 Intake Total 2100 1120 200 Output Total 3000 3310 1450 Balance -900 -2190 -1250 PT 17.4 SEC (12.0-15.0) H 04/23/17 19:25 INR 1.43 (0.83-1.16) H 04/23/17 19:[address] reviewed - possible tumor recurrent in operative bed, new pneumoperitoneum - Physical Exam Constitutional: no apparent distress, appears nourished, not in pain Cardiovascular: regular rate and rhythym, no murmur, rub, or gallop Respiratory: no respiratory distress, no rales or rhonchi, clear to auscultation Gastrointestinal: normoactive bowel sounds, soft, non-tender abdomen, no palpable masses Skin: no rashes or abrasions, no fluctuance, no induration Neurologic: AAOx3, sensation intact bilaterally Psychiatric: interacting appropriately, not anxious, not encephalopathic, thought process linear ICD10 Worksheet Patient Problems: Problems Problem Status Onset VRE (vancomycin-resistant Enterococci) Acute ~04/23/17 Biliary obstruction due to cancer Acute Liver abscess Acute bi Acute
[2017-05-02] MEDS: MICAFUNGIN NA 100 MG in NS 100 ML IV SCH (17:51)
--- NOTE | 2017-05-02 18:04 | PCMIDPN ---
Assessment/Plan: # Polymicrobial liver abscess (josey krusei, s. epi, Citrobacter, lactobacillus) --CT reviewed with Dr. Guardado, Dr Lara and subsequently with family -Drain in appropriate location, leave in place, adjustment will not help drainage -Free air - unclear source, but abdomen soft, no further Rx indicated -Ascites - continue drain -Noted presence of cancer -High likelihood of recurrent infection --Continue levoflox, flagyl, micafungin, daptomycin --unclear duration of therapy, start with 3 weeks, 05/17 from cleared blood cx # Vancomycin Resistant Enterococcal bacteremia 04/23, suspect biliary source. Blood cx 04/26 negative --daptomycin IV # New RLE DVT # metastatic pancreatic cancer Discussed poor prognosis. Wants full treatment no matter how bad situation/ number of complications. Re-reviewed code status and wants to continue full code. and sister present for discussion. Time 45 minutes med levofloxacin 750mg PO flagyl 500mg PO TID daptomycin 425mg IV daily micafungin 100mg IV daily Subjective: patient without specific c/o. Wants to get home so he can get stronger. Reports gaining 20# since admission. "any weight is good weight." Planning on making it to age 89 Objective: Vital Signs Temp Pulse Resp BP Pulse Ox 36.6 C 88 16 97/54 L 96 05/02/17 16:00 05/02/17 16:00 05/02/17 16:00 05/02/17 16:00 05/02/17 16:00 Microbiology 04/26/17 18:10 Blood Culture - Final Blood 04/26/17 18:10 Blood Culture - Final Blood Laboratory Results 05/02/17 05:15 05/02/17 05:15 05/01/17 05/02/17 05/03/17 05:59 05:59 05:59 Intake Total 2100 1120 1160 Output Total 3000 3310 1470 Balance -900 -2190 -310 - Physical Exam General Appearance: alert, no apparent distress, cachetic EENT: No thrush Respiratory: lungs clear, normal breath sounds Cardiac/Chest: regular rate, rhythm Extremities: swelling (RLE) Abdomen: normal bowel sounds, non-tender, soft, ascites, other (R leah drain; midline BRAULIO drain with small amount of cloudy, slightly yellow fluid, no bilous) Skin: pallor, No rash Neuro/Psych: alert, normal mood/affect, oriented x 3 - Line/s RUE PICC Lines: No drainage, No erythema - Time Spent With Patient Time Spent with Patient: greater than 35 minutes Time Spent with Patient: Greater than 35 minutes spent on this patients care, greater than 50% of time spent counseling, educating, and coordinating care regarding the above mentioned plan. ICD10 Worksheet Patient Problems: Problems Problem Status Onset VRE (vancomycin-resistant Enterococci) Acute ~04/23/17 Biliary obstruction due to cancer Acute Liver abscess Acute bi Acute
[2017-05-02] MEDS: ENOXAPARIN 80 MG/0.8 ML SYR SC SCH (18:17)
[2017-05-02] MEDS ORDERED: NS 1,000 ML IV SCH (18:30)
[2017-05-02] MEDS: MELATONIN 3 MG TAB PO SCH (21:06)
--- NOTE | 2017-05-02 22:28 | PDIAF ---
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 PICC Care - Routine: Yes - Orders Services needed: Home Care, Registered Nurse, Physical Therapy, Occupational Therapy Home Care Face to Face: I certify that this patient was under my care and that I had the required [id number] encounter meeting the encounter requirements on the discharge day. My findings support the fact that the patient is homebound as defined in CMS Chapter 7 Medicare Benefits Manual 30.1.1, The condition of the patient is such that there exists a normal inability to leave home and consequently, leaving home would require a considerable and taxing effort. - Labs/Radiology CBC Date: 05/06/17 (weekly saturday) CMP Date: 05/06/17 (weekly saturday) CPK Date: 05/06/17 (weekly saturday) Call or Fax Lab and Imaging Results to: Dr David Robison [phone] - Follow Up Care Current Providers and Referrals: NONE *PRIMARY CARE P,. [Primary Care Provider] - aDvid Robison MD [Medical Doctor] - follow up in 1 week
[2017-05-03] MEDS: metroNIDAZOLE 500 MG TAB PO SCH ×2 (04:59→13:36)
[2017-05-03 05:19] LABS: % IMMATURE GRANULYOCYTES 0.3 % (0.0-1.1); ABSOLUTE IMMATURE GRANULOCYTES 0.02 10^3/uL (0.00-0.10); ADD DIFF? NO; ADD MORPH? NO; ADD SCAN? NO; ATYPICAL LYMPHOCYTE FLAG 10 (0-99); FRAGMENT RBC FLAG 0 (0-99); LEFT SHIFT FLG 0 (0-99); LIPEMIA HEMOLYSIS FLAG 90 (0-99); MEAN CELL HEMOGLOBIN 30.5 pg (27.9-34.1); MEAN CELL HEMOGLOBIN CONCENTR. 34.6 g/dL (32.4-36.7); MEAN CELL VOLUME 88.1 fL (81.5-99.8); MEAN PLATELET VOLUME 9.2 fL (8.7-11.7); PLATELET CLUMPS FLAG 10 (0-99); PLATELET COUNT 102 10^3/uL (150-400); RED BLOOD CELL COUNT 2.95 10^6/uL (4.40-6.38); RED CELL DISTRIBUTION WIDTH 17.6 % (11.5-15.2)
[2017-05-03 05:41] LABS: ALANINE AMINOTRANSFERASE 40 IU/L (21-72); ALBUMIN 2.3 g/dL (3.5-5.0); ALKALINE PHOSPHATASE 223 IU/L (38-126); ANION GAP 6 mEq/L (8-16); ASPARTATE AMINOTRANSFERASE 42 IU/L (17-59); BILIRUBIN,TOTAL 1.2 mg/dL (0.1-1.4); BILIRUBIN-CONJUGATED 0.4 mg/dL (0.0-0.5); BILIRUBIN-UNCONJUGATED 0.8 mg/dL (0.0-1.1); CALCIUM 8.1 mg/dL (8.5-10.4); CARBON DIOXIDE 21 mEq/l (22-31); CHLORIDE 101 mEq/L (97-110); CREATININE 0.5 mg/dL (0.7-1.3); GLOMERULAR FILTRATION RATE > 60; GLUCOSE 129 mg/dL (70-100); POTASSIUM 3.5 mEq/L (3.5-5.2); SODIUM 128 mEq/L (134-144); TOTAL PROTEIN 4.3 g/dL (6.3-8.2)
[2017-05-03 08:20] VITALS: BP 91/63; PULSE 86; RESP 20; TEMP 97.5; O2SAT 95
[2017-05-03] MEDS: MAGNESIUM OXIDE 400 MG TAB PO SCH (08:23)
[2017-05-03] MEDS: ENOXAPARIN 80 MG/0.8 ML SYR SC SCH (08:23)
[2017-05-03] MEDS: NS IV SCH (09:47)
[2017-05-03] MEDS: DAPTOMYCIN IV SCH (09:47)
--- NOTE | 2017-05-03 11:10 | SOAPPROG ---
SOAP Progress Note Assessment/Plan: Assessment: 1.) Hepatobiliary abscess, poly microbial with Citrobacter, lactobacillus, S. epi, Enterococcus, and C. krusei cxed from abscess cavity. Plans for ongoing antibiotics with Levaquin, Micafungin, metronidazole, Daptomycin noted. To have prolonged home ABx. Fistula into bowel noted. Expect that resolution of infection will be difficult due to complicated abscess fluid collection. 2.) Pancreatic Carcinoma, resected 10/10/16 with R1 resection, now with slow recovery and complications as noted above. Has not received and is not in condition to receive systemic treatment. Most recent scanning shows reactive mass that includes abscess. It would be difficult to distinguish recurrent malignancy locally from post op abscess and fibrosis. He is not a candidate for active medical therapy at this time. No chemotherapy planned. 3.) Recurring ascites- daily peritoneal drainage noted for palliative measures of sx. discomfort. 4.) Hepatobiliary drainage of abscess 5.) Protein calorie malnutrition related to above complications and protein losses from daily ascites removal. He is eating full meals, with good protein content. Encouraged this diet and high protein and calorie supplements throughout the day. Eating nuts as a snack which is high in fat and protein content. 6.) Intravascular vol. depletion from ascites drainage 7.) Anemia- multifactorial 8.) Hyponatremia, due to third spacing and removal of ascites, repetitively 9.) COPD 10.) Home care management - suggest 1500 mL daily IVF hydration with his daily antibiotics via R PICC line. 11.) Prognosis without cancer recurrence would be difficult based upon abscess managment and limited chance for curative management of abscess. Additionally, protein-calorie malnutrtion- multifactorial, is likely to become life threatening at some point. Will continue conversation with patient and his family to learn of their understanding of his disease process and prognosis. He indicated his steady decline in discussion at the bedside today. I have alerted his [facility] outpt. chart as to the hospitalization for infectious complications management. Today we talk about limited life expectancy, and he reported his plans to spend time with family and do outdoor activities as feasible given his limited energy and timeframe. He understands there is no plan for systemic therapy given concomitant abscess formation. I think we should priortize his discharge to allow him time home. Since he will be on home IV Antibiotics and possible IVF, his needs are palliative, but not consistent with what Hospice would provide in the home situation. Plan: See above discussion. At this time, we have no additional diagnostic testing to suggest and no active cancer therapeutic intervention to offer. Discharge as per other services. Would be a candidate for home care services, However, his level of care required precludes palliative only ( Hospice) care at this time. Discharge as soon as today, 05/03/17 or when can be arranged. Re-contact our service if additional inpt. management requested. 05/03/17 11:05 Subjective: Feeling better and reports less ascites drainage. RLE DVT less symptomatic. Having diarrhea, but still has appetite. Objective: VSS, Afebrile as noted here. Pale, anicteric, (+) bitemporal wasting. ABD drains in usual position and NT at exit site. RLE shows minimal edema and is not painful. Labs as noted here: Hgb 9.0, Na 128 due to third spacing Vital Signs Temp Pulse Resp BP Pulse Ox 36.4 C 86 20 91/63 L 95 05/03/17 08:00 05/03/17 08:00 05/03/17 08:00 05/03/17 08:00 05/03/17 08:00 Laboratory Results 05/03/17 05:00 05/03/17 05:00 05/02/17 05/03/17 05/04/17 05:59 05:59 05:59 Intake Total 1120 1160 Output Total 3310 1470 1000 Balance -2190 -310 -1000 PT 17.4 SEC (12.0-15.0) H 04/23/17 19:25 INR 1.43 (0.83-1.16) H 04/23/17 19:25 ICD10 Worksheet Patient Problems: Problems Problem Status Onset VRE (vancomycin-resistant Enterococci) Acute ~04/23/17 Biliary obstruction due to cancer Acute Liver abscess Acute bi Acute
--- NOTE | 2017-05-03 12:14 | PDPCPN ---
Palliative Care Progress Note Assessment/Plan: Referring provider: Dr Marin Reason for consult: Complex medical decision making Symptom control HPI: Gurvinder Pena is a 66 yo male with PMH pancreatic Darcie/p whipple 09/2016 with complications of bacteremia and liver abscess, COPD, and recurrent ascites with [place] drain admitted to the hospital for dehydration. Found to have enterococcus bacteremia with ongoing liver abscess s/p BRAULIO drain and fistula into the jejunum. On IV antibiotics with needing prolonged course as outpt to continue. Follow up ct abdomen with possible pancreatic cancer reoccurrence. Hospitalization also complicated by ongoing weakness, RLE DVT and poor appetite. Palliative care consulted for complex medical decision making. Met with Gurvinder this morning. He stated Margy and him speak often so did not feel she needed to be present. Gurvinder discussed how he understands his prognosis is poor and he is not a candidate for further oncology treatment. He stated before yesterday he was just trying to get through all of this so he could survive but now realizes things are different. He still has hopes for future plans which include retiring in May and using his Annuity to buy a boat in June. He states he grew up in [place] [address] [facility] [address] and this is where he wants to spend his time. He is hopeful he can continue to live for awhile but also states "If things go the other way then that is what was meant to be". He and Margy discussed important things last night including CPR. He understands CPR will likely not be very successful and would not want to live on machines. He states if he goes, then let me go. We discussed what DNR is and means and while he would still like life prolonging measures he would not want resuscitation if his heart and breathing were to stop. Assessment: Physical: - Pain: general pain. Previous shoulder surgeries - uses pain ease at home -weakness - PT/OT support - poor appetite: - encourage general appetite - draining leah drain daily - uses cannabis at home Emotional/psychological: doing ok. Has a lot of support from family, work and friends. Advanced Care Planning: Is patient decisional?: Yes Code Status: DNR- does not want resuscitation but wants to continue other life prolonging measures. POA: Margy is MDPOA Plan: Home with [facility]. Wants to continue some life prolonging measures in hopes to continue to live. Has a few important milestones in the next couple of months. Understands his prognosis is poor and chemotherapy is not an option. Subjective: I'm doing ok Objective: Social History: to Margy for 17 years. Has son and daughter from previous marriage who live in [place]. 2 sisters live locally. 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 Enjoys being on [place] and riding his dirt bike. Medication list reviewed ROS: General: fatigue, weakness, weight loss ENT: negative Resp: dyspnea GI: poor appetite, ascites : negative MS: negative Skin: negative Neuro: negative Psych: negative Functional assessment: PPS: 50% Functional status: needs minimal assistance with ADls. Vital Signs Temp Pulse Resp BP Pulse Ox 36.4 C 86 20 91/63 L 95 05/03/17 08:00 05/03/17 08:00 05/03/17 08:00 05/03/17 08:00 05/03/17 08:00 Laboratory Results 05/03/17 05:00 05/03/17 05:00 05/02/17 05/03/17 05/04/17 05:59 05:59 05:59 Intake Total 1120 1160 Output Total 3310 1470 1000 Balance -2190 -310 -1000 PT 17.4 SEC (12.0-15.0) H 04/23/17 19:25 INR 1.43 (0.83-1.16) H 04/23/17 19:25 Physical Exam - Physical Exam General Appearance: alert, no apparent distress Respiratory: No respiratory distress, No accessory muscle use Abdomen: distended (mild) Skin: normal color, warm/dry Extremities: No pedal edema Neuro/Psych: alert, oriented x 3 ICD10 Worksheet Patient Problems: Problems Problem Status Onset Palliative care encounter Acute VRE (vancomycin-resistant Enterococci) Acute ~04/23/17 Biliary obstruction due to cancer Acute Liver abscess Acute bi Acute - ICD10 Problem Qualifiers (1) Palliative care encounter
[2017-05-03] MEDS ORDERED: ALBUMIN 25% 200 ML IV ONE (13:07)
--- NOTE | 2017-05-03 13:31 | PDIAF ---
- Diagnosis Diagnosis: bacteremia, liver abscess Code Status: Limited Resuscitation - Medication Management Discharge Medications: Medications to Continue on Transfer DAPTOmycin [Cubicin] 425 mg IV DAILY #14 ml 05/03/17 [Last Taken Unknown] Enoxaparin [Lovenox 80 MG (*)] 80 mg SC BID #60 syr 05/03/17 [Last Taken Unknown ] Micafungin Na [Mycamine 100Mg Vial] 100 mg IV DAILY@1830 #14 vial 05/03/17 [ Last Taken Unknown] Sodium Chloride [Salt Tablet] 1,000 mg PO BIDMEAL #60 tab 05/03/17 [Last Taken Unknown] Zolpidem Tartrate [Ambien 5MG (*)] 5 - 10 mg PO HS PRN #30 tab 05/03/17 [Last Taken Unknown] levOFLOXACIN [levAQUIN (*)] 750 mg PO DAILY@1800 #14 tab 05/03/17 [Last Taken Unknown] metroNIDAZOLE [Flagyl 500 mg (*)] 500 mg PO Q8HRS #42 tab 05/03/17 [Last Taken Unknown] 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 PICC Care - Routine: Yes - Orders Services needed: Home Care, Registered Nurse, Physical Therapy, Occupational Therapy Home Care Face to Face: I certify that this patient was under my care and that I had the required [id number] encounter meeting the encounter requirements on the discharge day. My findings support the fact that the patient is homebound as defined in CMS Chapter 7 Medicare Benefits Manual 30.1.1, The condition of the patient is such that there exists a normal inability to leave home and consequently, leaving home would require a considerable and taxing effort. Diet Recommendation: no restrictions on diet - Labs/Radiology BMP Date: 05/06/17 (twice weekly Saturday/) CBC Date: 05/06/17 (weekly saturday) CMP Date: 05/06/17 (weekly saturday) CPK Date: 05/06/17 (weekly saturday) Call or Fax Lab and Imaging Results to: Dr David Robison [phone] - Follow Up Care Current Providers and Referrals: NONE *PRIMARY CARE P,. [Primary Care Provider] - David Robison MD [Medical Doctor] - follow up in 1 week
[2017-05-03] MEDS: MICAFUNGIN NA 100 MG in NS 100 ML IV SCH (15:37)
[2017-05-03] MEDS ORDERED: SODIUM CHLORIDE 1,000 MG TAB PO SCH (18:00)
--- NOTE | 2017-05-03 18:45 | GDS ---
[f rep st] DISCHARGE SUMMARY DISCHARGE DIAGNOSES: 1. Enterococcus casseliflavus bacteremia. 2. 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 3. Pancreatic cancer, status post Whipple with positive margins. 4. Ascites, status post Minor drain. 5. 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 6. Severe protein-calorie malnutrition. 7. Right lower extremity deep vein thrombosis. HISTORY: The patient is a 66-year-old male recently diagnosed with pancreatic cancer. He underwent a Whipple but did have positive margins. His nutritional status is very poor, and he has been told by Oncology he will never be a chemotherapy candidate. There is possible already evidence of tumor recurrence in his operative bed. Per Oncology, his care is mostly palliative and supportive at thi s time. Patient does choose to continue with antibiotics and hopes to live for short period of time to accomplish some short-term goals. He was admitted to the hospital and found to have a liver abscess versus infected tumor necrosis. T here is a possible fistula to the biliary tree. This infection is polymicrobial and getting some re sistance to antibiotics and currently requiring 4 antibiotics for treatment. He will be discharged on Levaquin, daptomycin, Flagyl, and micafungin. He has a drain in the abscess, and it is slightly improved on follow-up CT scan. He was not felt to be a surgical candidate by Dr. Guardado. The drain is adequately placed. This infection will never be fully cleared, and the patient is aware of this. He was counseled at length regarding this being a terminal condition, but he did want to continue with antibiotics at this time. Blood cultures grew Enterococcus casseliflavus, which is also being covered by antibiotics. He is stable at this time to discharge on his current antibiotic regimen, b ut anticipate this is a short term stabilization as it is clear he has a terminal condition which wi ll be rapidly progressive to . Palliative Care saw him in consultation and he does understand the severity of his situation, and again has some short-term goals, including buying a boat and some time on the [place] and working a little bit more as he is just shy of some financial goals at work. He has ascites, which is probably malignant, and a Minor drain is in place. He has a large amount of output daily. He did have some benefit to IV albumin in the hospital. He is also hyponatremic, and it is acting most consistent with a SIADH. He has done well on salt tablets and was counseled r egarding limited fluid intake. On the day prior to discharge, his right leg was clearly more swollen than the left, and an ultrasou nd showed an extensive DVT throughout the right leg. He was started on subcu Lovenox, and he is yaniv f-injecting without any difficulties. I spoke with Dr. Hoyt, his oncologist, who recommends indef inite Lovenox and subcutaneous injections for the remainder of his life. The patient is very comfor table with this plan. DISCHARGE MEDICATIONS: Please see computer record for full detailed list. New medications: 1. Daptomycin 425 mg IV daily. 2. Levaquin 750 mg p.o. daily. 3. Flagyl 500 mg p.o. every 8 hours. 4. Micafungin 100 mg IV daily. 5. Enoxaparin 80 mg subcu b.i.d. 6. Salt tablets 1000 mg p.o. b.i.d. 7. Ambien 5-10 mg q.h.s. p.r.n. ADDITIONAL DISCHARGE INSTRUCTIONS: 1. Continue emptying the [place] drain as you were prior to admission. Other drain in the liver abs cess will also remain in place and drained as needed. 2. All antibiotics will continue through May 17 with regular laboratory studies. 3. Follow outpatient sodium levels closely to ensure it remains in range given his SIADH. Greater than 30 minutes' time was spent arranging this discharge. Patient was seen and examined by me on the day of discharge. /[id number]/MODL
== END 2017-05-03 16:54 | disposition home health service (06) | DRG 441 ==
LOC: F3E 16:37 → OBSVTOIN 17:12
PROVIDERS: ADMIT Internal Medicine; ATTEND Internal Medicine
PROC: BW111ZZ Fluoroscopy of Abdomen and Pelvis using Low Osmolar Contrast (ICD-10-PCS; 2017-04-23)
PROC: 02HV33Z Insertion of Infusion Device into Superior Vena Cava, Percutaneous Approach (ICD-10-PCS; principal; 2017-04-29)
DX: K75.0 Abscess of liver (principal); R78.81 Bacteremia; E87.1 Hypo-osmolality and hyponatremia; E43 Unspecified severe protein-calorie malnutrition; E86.0 Dehydration; K63.2 Fistula of intestine; B95.2 Enterococcus as the cause of diseases classified elsewhere; R18.0 Malignant ascites; C78.89 Secondary malignant neoplasm of other digestive organs; D68.4 Acquired coagulation factor deficiency; I82.411 Acute embolism and thrombosis of right femoral vein; D72.829 Elevated white blood cell count, unspecified; K59.00 Constipation, unspecified; E87.2 Acidosis; D63.0 Anemia in neoplastic disease; D69.6 Thrombocytopenia, unspecified; Z16.11 Resistance to penicillins; Z16.21 Resistance to vancomycin
CPT/HCPCS: 97116-GP; 97162-GP; 97165-GO; C1751; G8978-GP-CJ; G8979-GP-CI; G8987-GO-CI; G8988-GO-CI; G8989-GO-CI; J0290; J0878; J1170; J1650; J2060; J2248; J3370; P9041; P9047; Q9967

== ENCOUNTER 2017-05-15 06:56 | Day surgery (SDC) | payer OTHER ==
[2017-05-15 08:22] LABS: INR 1.68 (0.83-1.16); PROTIME(PATIENT) 19.8 SEC (12.0-15.0)
[2017-05-15 08:23] LABS: APTT 49.1 SEC (23.0-38.0)
[2017-05-15] MEDS ORDERED: MIDAZOLAM 2 MG/2 ML VIAL ONE (08:38)
[2017-05-15] MEDS ORDERED: fentaNYL 100 MCG/2 ML INJ ONE (08:39)
[2017-05-15] MEDS ORDERED: ONDANSETRON 4 MG/2 ML VIAL ONE (08:39)
[2017-05-15] MEDS ORDERED: NS 1,000 ML IV SCH (09:00)
== END 2017-05-15 10:02 | disposition home or self-care (01) ==
LOC: FIMAGING 06:56
PROVIDERS: ATTEND Internal Medicine Infectious Disease
PROC: 0WPG00Z Removal of Drainage Device from Peritoneal Cavity, Open Approach (ICD-10-PCS; principal; 2017-05-15)
DX: L02.91 Cutaneous abscess, unspecified (principal)
CPT/HCPCS: J2250; J2405; J3010